=== PATIENT | female | born 1960 | race Caucasian/White ===

== ENCOUNTER 2020-03-25 12:41 | Outpatient (REF) | payer MEDICARE, SELFPAY ==
--- NOTE | 2020-03-25 12:46 | US_ITS ---
EXAMINATION: ULTRASOUND OF THE RADIAL LEFT WRIST CLINICAL INFORMATION: Bursal cyst. Patient reports pain swelling in the area of trauma since April 2020. COMPARISON: None TECHNIQUE: Targeted ultrasound of the left radial aspect of the wrist in the area of patient's reported pain. FINDINGS: No abnormality detected US/US extremity nonvascular yen IMPRESSION: Normal targeted ultrasound of the right wrist. If symptoms persist consider follow-up imaging with x-rays and/or MRI
== END 2020-03-25 12:42 | disposition home or self-care (01) ==
LOC: HO.HMGCX 12:41
PROVIDERS: PCP Nurse Practitioner Family; Visit Provider Nurse Practitioner Family
DX: M71.332 Other bursal cyst, left wrist (principal)
CPT/HCPCS: 76882

== ENCOUNTER 2020-05-05 08:37 | Outpatient (REF) | payer MEDICARE, SELFPAY ==
--- NOTE | 2020-05-05 13:19 | XR_ITS ---
EXAMINATION: XR WRIST, LEFT CLINICAL INFORMATION: Cyst COMPARISON: None TECHNIQUE: PA, lateral, and oblique views of the left wrist. FINDINGS: The bones and soft tissues are normal. No fracture. Alignment is anatomic with normal joint spaces. No erosions or abnormal soft tissue calcifications. XR/XR wrist LT min 3V IMPRESSION: Normal left wrist.
== END 2020-05-05 08:38 | disposition home or self-care (01) ==
LOC: HO.HOSX 08:37
PROVIDERS: Visit Provider Physician Assistant
DX: M71.332 Other bursal cyst, left wrist (principal); M65.4 Radial styloid tenosynovitis [de Quervain]
CPT/HCPCS: 20550; 73110; 99202; J1100

== ENCOUNTER 2020-07-22 14:34 | Outpatient (REF) | payer MEDICARE, SELFPAY ==
--- NOTE | ~2020-07-22 | XR_ITS ---
EXAMINATION: XR FOOT, RIGHT CLINICAL INFORMATION: Pain COMPARISON: 08/13/2018 TECHNIQUE: AP, lateral, and oblique views of the right foot. FINDINGS: No acute fracture or dislocation. Stable hallux valgus.Stable postsurgical changes of the first and fifth metatarsals. Previously seen screws within the first and fifth metatarsals have been removed. Healed fracture deformities of the second and third metatarsal necks. Small dorsal projecting marginal osteophytes along the intertarsal articulations. Small plantar enthesophyte. Soft tissues unremarkable. XR/XR foot RT min 3V IMPRESSION: No acute fracture or dislocation. Postsurgical changes as described.
== END 2020-07-22 14:35 | disposition home or self-care (01) ==
LOC: HO.HMGCX 14:34
PROVIDERS: PCP Nurse Practitioner Family; Visit Provider Nurse Practitioner Family
DX: M79.671 Pain in right foot (principal)
CPT/HCPCS: 73630

== ENCOUNTER → 2020-09-02 09:15 | Outpatient (REF) | payer MEDICARE, SELFPAY ==
--- NOTE | 2020-09-02 09:18 | CA_ITS ---
Transthoracic Echocardiogram Amended Patient (Last, First, Middle): Erika Herron A Gender: Female Date of : 1960 Age: 60 Procedure Date: 09/02/2020 Procedure Type: Transthoracic Echocardiogram Location: OP Height: 160.02 cm Weight: 75.75 kg BSA: 1.79 m2 Heart Rate: bpm BP: 126 / 80 mmHg Building Performance Specialist: JESSICA Mckinney MD: Guillermo Suggs [facility] Symptoms: R01.1 - Cardiac murmur, unspecified Study Quality: Fair ECG Rhythm: Sinus Conclusions: - The left ventricular systolic function is normal. The visually estimated ejection fraction is between 65-70%. - There is mild calcification of the aortic valve. - No obvious valvular pathology seen on this study. Findings Left Ventricle Normal left ventricular cavity size. There is normal left ventricular wall thickness. The left ventricular systolic function is normal. The visually estimated ejection fraction is between 65-70%. There is no evidence of regional wall motion abnormalities. Diastolic function is normal for age. Right Ventricle Normal right ventricular cavity size and systolic function. Atria The left atrium is normal in size. The right atrium is normal in size. Aortic Valve There is a normal trileaflet aortic valve. There is mild calcification of the aortic valve. There is no aortic valve stenosis. There is no aortic valve regurgitation. Mitral Valve The mitral valve appears normal. There is trace mitral valve regurgitation. There is no mitral valve stenosis. Pulmonic Valve The pulmonic valve was not well visualized. Tricuspid Valve Normal tricuspid valve structure. There is trace tricuspid valve regurgitation. The pulmonary artery systolic pressure is normal. Great Vessels The aortic annulus, sinuses of valsalva, and asc aorta are normal in size. Venous The inferior vena cava is normal in size and collapses greater than 50% with inspiration. Pericardium/Pleural There is no evidence of pericardial effusion. Prior Study Comparison No significant change compared to prior study dated: 04/01/2016. Recommendations, Care & Conclusions No obvious valvular pathology seen on this study. Measurements 2D Linear Measurements IVSd: 0.88 0.6-0.9/0.6-1.0 cm LVIDd: 3.97 3.9-5.3/4.2-5.9 cm LVIDd Index: 2.22 2.4-3.2/2.2-3.1 cm/m2 LVIDs: 2.46 2.0-3.6 cm LVPWd: 0.98 0.7-1.1 cm Ao Root: 2.90 2.1-3.5 cm LA Diam: 3.50 2.7-3.8/3.0-4.0 cm LAIDs Index: 1.96 1.5-2.3 cm/m2 LV Mass: 140.90 67-162/88-224 g LV Mass Index: 78.72 43-95/49-115 g/m2 LVOT Diam: 2.00 3.0+(-)1.3 cm 2D Systolic Function EF 4C: 63.50 >55% EF 2C: 63.10 >55% EF BiP: 64.60 >55% Mitral Valve MV Pk E: 1.22 MV PK A: 1.23 MV Decel Time: 239.00 E/A: 1.00 E'Lateral: 7.54 E'Medial: 7.54 E/E' Med: 16.20 E/E' Lat: 16.20 PHT: 70.00 MVA PHT: 3.14 Decel Hernando: 5.11 Aortic Valve AoV Pk Kirk: 1.59 AoV Mn Kirk: 1.13 AoV VTI: 0.40 AoV Pk Grad: 10.00 Aov Mn Grad: 6.00 AUNDREA Cont.VTI: 2.64 LVOT LVOT Pk Kirk: 1.46 LVOT Mn Kirk: 0.97 LVOT VTI: 0.34 LVOT Pk Grad: 9.00 LVOT Mn Grad: 4.00 LVOT Diam: 2.00 LVOT Area: 3.14 Diastolic Function MV Pk E: 1.22 MV Pk A: 1.23 E/A: 1.00 E'Medial: 7.54 E/E' Med: 16.20 E' Laterial: 7.54 E/E' Lat: 16.20 Tricuspid Valve TR Pk Kirk: 1.79 TR Pk Grad: 13.00 RA Press: 3.00 RVSP: 16.00 Great Vessels Aorta Ao Root-2D: 2.90 2.0-3.7 cm Ao Asc: 3.00 2.1-3.4 cm Ao Arch: 2.40 Updated in Other Vendor System with Status of Final Los Calvin MD electronically signed on 09/03/2020 10:07:12 AM with status of Final
== END ==
LOC: HO.CARD 09:15
PROVIDERS: PCP Nurse Practitioner Family; Visit Provider Nurse Practitioner Family
DX: R01.1 Cardiac murmur, unspecified (principal)
CPT/HCPCS: 93306

== ENCOUNTER 2021-11-12 11:01 | Outpatient (REF) | payer MEDICARE, SELFPAY ==
[2021-11-14 05:12] LABS: Lyme Abs Screen <0.90 index
== END 2021-11-12 11:02 | disposition home or self-care (01) ==
LOC: HO.HMGCLDS 11:01
PROVIDERS: PCP Nurse Practitioner Family; Visit Provider Internal Medicine
DX: M25.50 Pain in unspecified joint (principal)
CPT/HCPCS: 36415; 86617; 86618

== ENCOUNTER 2021-11-22 13:26 | Outpatient (REF) | payer MEDICARE, SELFPAY ==
[2021-11-24 10:02] LABS: Lyme Blot 3.27 index
[2021-11-28 11:43] LABS: Lyme Abs Screen POSITIVE
[2021-11-28 11:48] LABS: 18 KD (IgG) Band NON-REACTIVE; 23 KD (IgG) Band NON-REACTIVE; 23 KD (IgM) Band REACTIVE; 28 KD (IgG) Band NON-REACTIVE; 30 KD (IgG) Band NON-REACTIVE; 39 KD (IgM) Band NON-REACTIVE; 39KD (IgG) Band NON-REACTIVE; 41 KD (IgM) Band NON-REACTIVE; 41KD (IgG) Band NON-REACTIVE; 45 KD (IgG) Band NON-REACTIVE; 58 KD (IgG) Band NON-REACTIVE; 66 KD (IgG) Band NON-REACTIVE; 93 KD (IgG) Band NON-REACTIVE; Lyme IgG Blot Interp NEGATIVE (NEGATIVE); Lyme IgM Blot Interp NEGATIVE (NEGATIVE)
== END 2021-11-22 13:27 | disposition home or self-care (01) ==
LOC: HO.HMGCLDS 13:26
PROVIDERS: Visit Provider Nurse Practitioner Family
DX: T14.8XXA Other injury of unspecified body region, initial encounter (principal); X58.XXXA Exposure to other specified factors, initial encounter; Y93.9 Activity, unspecified; Y92.9 Unspecified place or not applicable; Y99.8 Other external cause status
CPT/HCPCS: 36415; 86617; 86618

== ENCOUNTER 2022-08-09 12:31 | Outpatient (REF) | payer MEDICARE, MEDICAID, SELFPAY ==
--- NOTE | ~2022-08-09 | XR_ITS ---
EXAMINATION: XR FOOT, RIGHT CLINICAL INFORMATION: Pain COMPARISON: Previous x-ray July 2009 TECHNIQUE: AP, lateral, and oblique views of the right foot. FINDINGS: The bones are osteopenic. There is hallux valgus deformity at the first MTP joint. Bone alignment is otherwise normal. Postsurgical changes to the first and fifth metatarsal bones. No fracture or dislocation. Ankylosis at the PIP joints of the second and third toes. Mild arthritis at the first MTP joint. Plantar calcaneal spur. XR/XR foot RT min 3V IMPRESSION: Osteopenia. Hallux valgus deformity at the first MTP joint. Postsurgical changes to the first and fifth metatarsal bones.
[2022-08-09 14:10] LABS: MANUAL DIFF FLAG NO
[2022-08-09 14:23] LABS: Basophils Percent Auto 0.4 % (0-2); Eosinophils Absolute Auto 0.1 X10*3/uL (0.0-0.4); Eosinophils Percent Auto 0.9 % (0-4); Hematocrit 46.2 % (37.0-47.0); Hemoglobin 15.2 g/dl (12.0-16.0); Imm Gran Abs Auto 0.02 X10*3/uL (0.00-0.03); Imm Gran Pct Auto 0.2 % (0.0-0.4); Lymphocytes Absolute Auto 2.6 X10*3/uL (1.2-4.9); Lymphocytes Percent Auto 32.1 % (20-40); Mean Corpuscular HGB Conc 32.9 g/dl (31.0-35.0); Mean Corpuscular Volume 94.3 fL (80.0-98.0); Mean Platelet Volume 11.2 fL (9.4-12.3); Monocytes Absolute Auto 0.4 X10*3/uL (0.1-1.2); Monocytes Percent Auto 4.8 % (2-11); Neutrophils Percent Auto 61.6 % (45-73); Platelet Count 194 X10*3/uL (160-400); Red Cell Distribution Width 13.8 % (11.0-16.0); White Blood Count 8.2 X10*3/uL (4.8-10.8)
[2022-08-09 16:10] LABS: Alanine Aminotransferase 28 U/L (0-31); Albumin Level 4.3 g/dL (3.5-5.0); Alkaline Phosphatase 84 U/L (39-117); Anion Gap 13 (12-20); Aspartate Amino Transferase 19 U/L (5-31); Bilirubin Total 0.6 mg/dL (0.0-1.0); Blood Urea Nitrogen 16 mg/dL (9-16); Calcium 9.7 mg/dL (8.4-10.2); Carbon Dioxide 31 mmol/L (22-29); Chloride 106 mmol/L (96-108); Cholesterol 325 mg/dL; Estimated Glomerular Filt Rate > 60; Glucose Fasting 121 mg/dL (60-99); HDL Cholesterol 51 mg/dL; LDL Cholesterol Calculated 213 mg/dl; Potassium 4.6 mmol/L (3.3-5.1); Sodium 145 mmol/L (135-145); Total Protein 7.1 g/dL (6.5-8.0); Triglycerides 309 mg/dL
[2022-08-09 16:24] LABS: TSH reflex Free T4 1.28 uIU/mL (0.32-4.0)
[2022-08-09 17:48] LABS: Appearance Urine Clear; Color Urine Yellow; Glucose Urine UA Negative (Negative); Leukocyte Esterase Urine Negative (Negative); Nitrite Urine Negative (Negative); PH 6.5 (5.0-9.0); Specific Gravity - Urine 1.015 (1.005-1.025); UMIC TRIGGER UACC YES; Urine Blood Trace (Negative); Urine Ketones Negative (Negative); Urine Protein Negative (Neg-Trace)
[2022-08-09 17:56] LABS: Bacteria Urine None Seen (None Seen); Hyaline Casts Urine 0-2 /LPF (0-2); RBC Urine 0-2 /HPF (0-2); Squamous Epithelial Cell Urine 0-2 /HPF (0-2); WBC Urine 0-5 /HPF (0-5)
== END 2022-08-09 12:32 | disposition home or self-care (01) ==
LOC: HO.HMGCX 12:31
PROVIDERS: PCP Nurse Practitioner Family; Visit Provider Nurse Practitioner Family
DX: I10 Essential (primary) hypertension (principal); E78.5 Hyperlipidemia, unspecified; M79.671 Pain in right foot
CPT/HCPCS: 36415; 73630; 80053; 80061; 81001; 84443; 85025

== ENCOUNTER 2023-01-02 14:49 | Outpatient (REF) | payer MEDICARE, MEDICAID, SELFPAY ==
[2023-01-02 17:46] LABS: Alanine Aminotransferase 28 U/L (0-31); Albumin Level 4.1 g/dL (3.5-5.0); Alkaline Phosphatase 87 U/L (39-117); Anion Gap 13 (12-20); Aspartate Amino Transferase 17 U/L (5-31); Bilirubin Total 0.8 mg/dL (0.0-1.0); Blood Urea Nitrogen 10 mg/dL (9-16); Calcium 9.6 mg/dL (8.4-10.2); Carbon Dioxide 30 mmol/L (22-29); Chloride 107 mmol/L (96-108); Cholesterol 159 mg/dL (<200); Estimated Glomerular Filt Rate > 60; Glucose Fasting 92 mg/dL (60-99); HDL Cholesterol 57 mg/dL (>40); Iron 155 mcg/dL (30-160); LDL Cholesterol Calculated 78 mg/dL (<100); Percent Iron Saturation 49 % (15-50); Sodium 146 mmol/L (135-145); Total Iron Binding Capacity 316 mcg/dL (228-428); Total Protein 7.1 g/dL (6.5-8.0); Triglycerides 120 mg/dL (<150); Unsaturated Iron Binding 161 ug/dL
[2023-01-02 18:01] LABS: Ferritin 164 ng/mL (10-250)
== END 2023-01-02 14:50 | disposition home or self-care (01) ==
LOC: HO.HMGCLDS 14:49
PROVIDERS: PCP Nurse Practitioner Family; Visit Provider Nurse Practitioner Family
DX: R73.01 Impaired fasting glucose (principal); E78.5 Hyperlipidemia, unspecified; G25.81 Restless legs syndrome
CPT/HCPCS: 36415; 80053; 80061; 82728; 83540

== ENCOUNTER 2023-01-05 09:38 | Outpatient (AMB) | payer MEDICARE, MEDICAID, SELFPAY ==
[2023-01-05 09:47] VITALS: BP 112/68; PULSE 64; O2SAT 94; BMI 29.9
--- NOTE | 2023-01-05 09:47 | A.OFFPC_ITS ---
Vital Signs 01/05/23 09:47 Height 5 ft 3.5 in Weight 171 lb 8 oz BMI 29.9 BP 112/68 Blood Pressure Location Rt brachial Position Sitting Pulse 64 Pulse Source Pulse Oximeter Pulse Oximetry (%) 94 Oxygen Delivery Method Room Air Intake Visit Reasons: 3 month follow up HTN Allergies gabapentin [GABAPENTIN] Allergy (Unknown, Verified 01/05/23 10:10) VOMITING levofloxacin [From LEVAQUIN] Allergy (Unknown, Verified 01/05/23 10:10) VOMITING/FEVER pregabalin Adverse Reaction (Unknown, Verified 01/05/23 10:10) loss of memory Mirtazapine Adverse Reaction (Unknown, Uncoded 01/05/23 10:10) feels horrible Medication List - Last Reconciled 01/05/23 by VANESA Chaudhary alprazolam 1 mg PO BID PRN calcium carbonate (Calcium 500) 500 mg PO DAILY cholecalciferol (vitamin D3) 25 mcg PO DAILY citalopram 20 mg PO QAM clonazepam 1 mg PO BEDTIME flu vac [id number] 36mos up(PF) mL IM glucosamine sulfate 2KCl (Glucosamine Relief) 1,000 mg PO BID hydrochlorothiazide 25 mg PO DAILY 90 days pramipexole 0.75 mg PO BEDTIME 90 days rosuvastatin 10 mg PO DAILY 30 days zolpidem 10 mg PO BEDTIME PRN 30 days Tobacco use date assessed: 01/05/23 Dental Screening Dental Screen Date: 01/05/23 Did you have a dental visit in the last 12 months?: No Did you have a dental problem in the last 6 months where you did not have access to dental care?: No Was dental information given to patient?: No HPI 3 month follow up HTN HPI Details Dyslipidemia: On rosuvastatin 10mg. Pt's lipids are improving with use of statin. HTN: Blood pressure is stable, managed with hydrochlorothiazide 25mg. Denies chest pain, shortness of breath, headache, dizziness, and blurred vision. [facility] Medical History Anxiety disorder Chronic foot pain Depression Lumbar radiculopathy Nerve root compression Restless leg syndrome Sleep apnea Surgical History H/O synovectomy History of colonoscopy History of microdiscectomy Family History Father No problems noted. Mother CVD (cardiovascular disease) S/P triple vessel bypass Myocardial infarct Social History Housing: House Alcohol intake: never Patient Tobacco Use Status: Former Tobacco user Quit Date: 1984 Tobacco use type: Cigarette e-Cigarette/Vaping Use: Never Used Second Hand Smoke Exposure: No Current occupational status: unemployed Current occupation: right handed Cognitive needs: No Hearing needs: No Vision needs: No Questionnaire Thrive Questionnaire Date Thrive assessed: 09/29/22 GERSON-7 AMB Questionnaire GERSON-7 Date GERSON - 7 assessed: 09/29/22 Source: Developed by Drs. Jackson Dorsey, Cha Crum, Odin Brewster and colleagues, with an educational chris from [employer]. Review of Systems Const Reports as per HPI Physical exam (Primary Care) Vital Signs: Last Vital Signs Pulse 64 01/05/23 09:47 BP 112/68 01/05/23 09:47 Pulse Ox 94 01/05/23 09:47 Oxygen Delivery Method Room Air 01/05/23 09:47 BMI result Body Mass Index 29.9 Tobacco/Smoking Status: Tobacco use Status Tobacco use date assessed 01/05/23 01/05/23 09:55 Patient Tobacco Use Status Former Tobacco user 01/05/23 09:51 Tobacco use type Cigarette 01/05/23 09:51 e-Cigarette/Vaping Use Never Used 01/05/23 09:51 Thrive Assessment: Date of Thrive Assessment Date Thrive assessed 09/29/22 01/05/23 09:51 Const General: cooperative Orientation/consciousness: patient oriented x3 Resp Effort & Inspection: normal respiratory effort Auscultation: clear to auscultation bilaterally Cardio Rate: regular rate Rhythm: regular rhythm Heart sounds: S1 normal heart sound present and S2 normal heart sound present Neuro General: patient oriented x3 Psych Appearance: grossly normal Mental Status: mental status grossly normal Speech and movement: Normal speech and movement present Affect: normal affect Attitude: cooperative Thought process: Normal thought process present Thought content: Normal thought content present Insight: Good insight present (Psych) Judgement: Good judgement present (Psych) Assessment and Plan Assessment & Plan (1) Dyslipidemia: Code(s): E78.5 - Hyperlipidemia, unspecified Plan: Continue statin (2) HTN (hypertension): Code(s): I10 - Essential (primary) hypertension Plan: Continue hctz Plan The patient agreed to the use of a medical front desk coordinator for this encounter. Scribed for VANESA Knight by Karie Fry medical front desk coordinator, on 01/05/2023 at 10:05 EST. Coding Level of Care Code Est Pt Level 3 (26950) Diagnoses Dyslipidemia E78.5 HTN (hypertension) I10
== END 2023-01-05 10:30 | disposition home or self-care (01) ==
PROVIDERS: PCP Nurse Practitioner Family; Visit Provider Nurse Practitioner Family
DX: E78.5 Hyperlipidemia, unspecified (principal); I10 Essential (primary) hypertension
CPT/HCPCS: 99213

== ENCOUNTER 2023-04-04 10:58 | Outpatient (REF) | payer MEDICARE, MEDICAID, SELFPAY ==
--- NOTE | ~2023-04-04 | MM_ITS ---
EXAMINATION: BONE DENSITOMETRY CLINICAL INDICATION: Asymptomatic menopausal state. COMPARISON: This is the patient's baseline examination. TECHNIQUE: Using a [employer] DXA System (software version: 13.1) manufactured by [employer], dual-energy x-ray absorptiometry was performed of the lumbar spine and left hip. The images are of good technical quality. Summary results are attached. FINDINGS: LEFT FEMUR, NECK: BMD 0.525 g/cm2, Z-score -2.6, T-score -3.7, osteoporosis. LEFT FEMUR, TOTAL: BMD 0.657 g/cm2, Z-score -2.0, T-score -2.8, osteoporosis. AP SPINE L1-L4: BMD 1.058 g/cm2, Z-score 0.0, T-score -1.0, normal. IDENTIFIED RISK FACTORS: Menopause, thiazide. HISTORY OF FRACTURE: None listed. MEDICATIONS: Multivitamin. MM/XR DEXA axial skeleton IMPRESSION: 1. DIAGNOSIS: Osteoporosis based on the lowest T-score value of -3.7 in the femoral neck applying World Health Organization criteria. 2. 10-YEAR FRACTURE RISK PREDICTION, FRAX: According to the guidelines, FRAX calculation should only be performed on patients in the osteopenia bone density category. Therefore, FRAX was not performed on this patient. 3. Treatment Recommendations: NOF guidelines recommend consideration for treatment in postmenopausal women and men age 50 and older presenting with the following: -A hip or vertebral (clinical or morphometric) fracture. -T-score less than or equal to -2.5 at the femoral neck or spine after appropriate evaluation to exclude secondary causes. -Low bone mass at the hip or spine and a 10-year fracture probability by FRAX of greater than or equal to 3% for hip fracture or greater than or equal to 20% for major osteoporotic fracture based on the [place] adapted WHO algorithm. 4. Other Recommendations: All treatment decisions require clinical judgment and consideration of individual patient factors, including patient preferences, comorbidities, previous drug use, risk factors not captured in the FRAX model (e.g. frailty, falls, vitamin D deficiency, increased bone turnover, interval significant decline in bone density) and possible under or overestimation of fracture risk by FRAX. Additional medical evaluation for secondary cause of low bone mineral density may be appropriate. FUTURE SCAN RECOMMENDATION: People with diagnosed cases of osteoporosis or at high risk for fracture should have regular bone mineral density tests. For patients eligible for Medicare, routine testing is allowed once every 2 years. The testing frequency can be increased to one year for patients who have rapidly progressing disease, those who are receiving or discontinuing medical therapy to restore bone mass, or have additional risk factors.
== END 2023-04-04 10:59 | disposition home or self-care (01) ==
LOC: HO.MAMMO 10:58
PROVIDERS: PCP Nurse Practitioner Family; Visit Provider Nurse Practitioner Family
DX: Z13.820 Encounter for screening for osteoporosis (principal); Z78.0 Asymptomatic menopausal state
CPT/HCPCS: 77080

== ENCOUNTER 2023-04-12 10:55 | Outpatient (AMB) | payer MEDICARE, MEDICAID, SELFPAY ==
--- NOTE | 2023-04-12 11:34 | A.OFFPC_ITS ---
Vital Signs 04/12/23 11:36 Height 5 ft 3.5 in Weight 174 lb BMI 30.3 BP 114/80 Blood Pressure Location Lt brachial Position Sitting Pulse 61 Pulse Source Pulse Oximeter Pulse Oximetry (%) 98 Oxygen Delivery Method Room Air Intake Visit Reasons: Annual PE Intake Note: Patient here for physical exam. pt would like to talk about bone density scan. last mammo: october 04, 2022 last pap: 03/31/23 [facility] bone density: 04/01/23 Allergies gabapentin [GABAPENTIN] Allergy (Unknown, Verified 04/12/23 11:39) VOMITING levofloxacin [From LEVAQUIN] Allergy (Unknown, Verified 04/12/23 11:39) VOMITING/FEVER pregabalin Adverse Reaction (Unknown, Verified 04/12/23 11:39) loss of memory Mirtazapine Adverse Reaction (Unknown, Uncoded 04/12/23 11:39) feels horrible Medication List - Last Reconciled 04/12/23 by VANESA Chaudhary alprazolam 1 mg PO BID PRN calcium carbonate (Calcium 500) 500 mg PO DAILY cholecalciferol (vitamin D3) 25 mcg PO DAILY citalopram 20 mg PO QAM clonazepam 1 mg PO BEDTIME flu vac [id number] 36mos up(PF) mL IM glucosamine sulfate 2KCl (Glucosamine Relief) 1,000 mg PO BID hydrochlorothiazide 25 mg PO DAILY 90 days pramipexole 0.75 mg PO BEDTIME 90 days rosuvastatin 10 mg PO DAILY 30 days zolpidem 10 mg PO BEDTIME PRN 30 days Tobacco use date assessed: 01/05/23 Dental Screening Dental Screen Date: 04/12/23 Did you have a dental visit in the last 12 months?: No Did you have a dental problem in the last 6 months where you did not have access to dental care?: No Was dental information given to patient?: Patient declined HPI Annual PE HPI Details Pt is here for a PE. Will order labs. Mammo is up to date. Bone density is up to date. Due for colon screen, will refer to GI. [facility] Medical History Anxiety disorder Chronic foot pain Depression Lumbar radiculopathy Nerve root compression Restless leg syndrome Sleep apnea Surgical History History of colonoscopy History of microdiscectomy H/O synovectomy Family History Father No problems noted. Mother CVD (cardiovascular disease) S/P triple vessel bypass Myocardial infarct Social History Housing: House Alcohol intake: never Patient Tobacco Use Status: Former Tobacco user Quit Date: 1984 Tobacco use type: Cigarette e-Cigarette/Vaping Use: Never Used Second Hand Smoke Exposure: No Current occupational status: unemployed Current occupation: right handed Cognitive needs: No Hearing needs: No Vision needs: No Questionnaire PHQ-9 Over the last 2 weeks, how often have you been bothered by any of the following problems? 1. Little interest or pleasure in doing things: more than half the days 2. Feeling down, depressed, or hopeless: more than half the days 3. Trouble falling or staying asleep, or sleeping too much: nearly every day 4. Feeling tired or having little energy: nearly every day 5. Poor appetite or overeating: not at all 6. Feeling bad about yourself - or that you are a failure or have let yourself or your family down: not at all 7. Trouble concentrating on things, such as reading the newspaper or watching television: several days 8. Moving or speaking so slowly that other people could have noticed. Or the opposite - being so fidgety or restless that you have been moving around a lot more than usual: not at all 9. Thoughts that you would be better off or of hurting yourself in some way: not at all Total score: 11 Depression Screening Interpretation: Positive (has a therapist) Depression Screening Follow-up: In treatment Depression Screening Done: Yes 16740 - PHQ-9 Billing: Yes Source: Developed by Drs. Jackson Dorsey, Cha Crum, Odin Brewster and colleagues, with an educational chris from [employer]. Thrive Questionnaire Date Thrive assessed: 09/29/22 AUDIT C Alcohol Use Questionnaire (AUDIT-C) 1. How often do you have a drink containing alcohol?: Never 3. How often do you have six or more drinks on one occasion?: Never Total Score: 0 Score Reviewed/Action Taken: No GERSON-7 AMB Questionnaire GERSON-7 Date GERSON - 7 assessed: 09/29/22 Source: Developed by Drs. Jackson Dorsey, Cha Crum, Odin Brewster and colleagues, with an educational chris from [employer]. Review of Systems Const Denies chills and Denies fever(s) Eyes Denies blurry vision ENT Denies vertigo, Denies dizziness and Denies sore throat Card Denies chest pain at rest, Denies chest pain with activity, Denies diaphoresis, Denies dyspnea and Denies dyspnea on exertion Resp Denies cough, Denies dyspnea, Denies dyspnea on exertion and Denies wheezing GI Denies abdominal pain, Denies melena, Denies hematochezia, Denies constipation, Denies diarrhea and Denies loose stools Denies hematuria Musc Denies numbness and Denies tingling Skin/Breast Denies lesions Neuro Denies vertigo, Denies dizziness, Denies numbness and Denies tingling Psych Denies anxiety, Denies depression, Denies homicidal ideation, Denies suicidal ideation and Denies other (substance abuse) Aller/Immun Denies wheezing Physical exam (Primary Care) Vital Signs: Last Vital Signs Pulse 61 04/12/23 11:36 BP 114/80 04/12/23 11:36 Pulse Ox 98 04/12/23 11:36 Oxygen Delivery Method Room Air 04/12/23 11:36 BMI result Body Mass Index 30.3 Tobacco/Smoking Status: Tobacco use Status Tobacco use date assessed 01/05/23 04/12/23 11:35 Patient Tobacco Use Status Former Tobacco user 04/12/23 11:35 Tobacco use type Cigarette 04/12/23 11:35 e-Cigarette/Vaping Use Never Used 04/12/23 11:35 PHQ-9: PHQ-9 Score PHQ-9: Total score 11 04/12/23 13:05 Depression Screening Interpretation: Positive (has a therapist) Depression Screening Follow-up: In treatment Thrive Assessment: Date of Thrive Assessment Date Thrive assessed 09/29/22 04/12/23 11:35 Const General: cooperative Nutritional Appearance: well nourished and obese Orientation/consciousness: patient oriented x3 HENMT Head: Yes normal to inspection, Yes normocephalic and Yes atraumatic Ears: TM's normal bilaterally Eyes General: appearance normal, both eyes and all related structures Alignment and Position: alignment normal and position normal Neck Neck: Yes normal visual inspection and Yes no lymphadenopathy Thyroid: Thyroid normal Resp Effort & Inspection: normal respiratory effort Auscultation: clear to auscultation bilaterally Cardio Rate: regular rate Rhythm: regular rhythm Heart sounds: S1 normal heart sound present, S2 normal heart sound present and no murmurs GI Palpation (GI): Soft to palpation and nontender Auscultation: normal bowel sounds Skin Rashes: no rashes Neuro General: patient oriented x3, moves all extremities, no focal motor deficits and deep tendon reflexes 2+ bilaterally Romberg Test: Negative Psych Appearance: grossly normal Mental Status: mental status grossly normal Speech and movement: Normal speech and movement present Affect: normal affect Attitude: cooperative Thought process: Normal thought process present Thought content: Normal thought content present Insight: Good insight present (Psych) Judgement: Good judgement present (Psych) Assessment and Plan Assessment & Plan (1) Screening for colon cancer: Code(s): Z12.11 - Encounter for screening for malignant neoplasm of colon (2) Physical exam: Code(s): Z00.00 - Encounter for general adult medical examination without abnormal findings (3) Postmenopausal: Code(s): Z78.0 - Asymptomatic menopausal state Plan The patient agreed to the use of a emergency medical services coordinator for this encounter. Scribed for VANESA Knight by Karie Fry emergency medical services coordinator, on 04/12/2023 at 11:45 EST. Orders: Orders Complete Blood Count Auto Diff Today Z00.00 - Encounter for general adult medical examination without abnormal findings UA CC w/rflx Micro + Cult Today Z00.00 - Encounter for general adult medical examination without abnormal findings Lipid Panel Today Z00.00 - Encounter for general adult medical examination without abnormal findings Comprehensive [place]. Panel Fast Today Z00.00 - Encounter for general adult medical examination without abnormal findings TSH reflex Free T4 Today Z00.00 - Encounter for general adult medical examination without abnormal findings Vitamin D 25-OH Total Today Z78.0 - Asymptomatic menopausal state Referrals Gastroenterology Referral Z12.11 - Encounter for screening for malignant neoplasm of colon Coding Level of Care Code Est Pt Prev Care 40-64y(69333) Diagnoses Screening for colon cancer Z12.11 Physical exam Z00.00 Postmenopausal Z78.0
[2023-04-12 11:36] VITALS: BP 114/80; PULSE 61; O2SAT 98; BMI 30.3
== END 2023-04-12 14:27 | disposition home or self-care (01) ==
PROVIDERS: Visit Provider Nurse Practitioner Family
DX: Z00.00 Encounter for general adult medical examination without abnormal findings (principal); Z12.11 Encounter for screening for malignant neoplasm of colon; Z78.0 Asymptomatic menopausal state
CPT/HCPCS: 99396

== ENCOUNTER 2023-05-19 08:58 | Outpatient (AMB) | payer MEDICARE, MEDICAID, SELFPAY ==
--- NOTE | 2023-05-19 10:03 | MHC.OFFWIV ---
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 Pt states she fell on 04/24/23 at [facility] and has been experiencing left side shoulder pain that has progressively got worse. Patient Tobacco Use Status: Former Tobacco user Quit Date: quit 1984 Allergies gabapentin [GABAPENTIN] Allergy (Unknown, Verified 05/19/23 10:03) VOMITING levofloxacin [From LEVAQUIN] Allergy (Unknown, Verified 05/19/23 10:03) VOMITING/FEVER pregabalin Adverse Reaction (Unknown, Verified 05/19/23 10:03) loss of memory Mirtazapine Adverse Reaction (Unknown, Uncoded 05/19/23 10:03) feels horrible Medication List - Last Reconciled 05/19/23 by Mica Arias MD alprazolam 1 mg PO BID PRN calcium carbonate (Calcium 500) 500 mg PO DAILY calcium carbonate-vitamin D3 600 mg-12.5 mcg (500 unit) (Calcium 600 with Vitamin D3) 1 cap PO BID 90 days cholecalciferol (vitamin D3) 25 mcg PO DAILY citalopram 20 mg PO QAM clonazepam 1 mg PO BEDTIME flu vac [id number] 36mos up(PF) mL IM glucosamine sulfate 2KCl (Glucosamine Relief) 1,000 mg PO BID hydrochlorothiazide 25 mg PO DAILY 90 days pramipexole 0.75 mg PO BEDTIME 90 days rosuvastatin 10 mg PO DAILY 30 days zolpidem 10 mg PO BEDTIME PRN 30 days Do you need a note to return to daycare/school/sports/work: No HPI EP, left shoulder pain ([phone]) HPI Details Patient is 62-year-old female came in today to be evaluated for left shoulder injury Patient says that she was in hospital 24 of April when her daughter had miscarriage While walking in hallway she slipped and fell on her left side. Initially she also had pain in her left knee and hip area along with shoulder. But now she only have pain in her left shoulder and having difficulty lifting the arm. On examination she is tender all over however there is no ecchymosis or skin lesions. Both shoulders looks even. I am ordering x-ray of the shoulder I have sent diclofenac 75 mg to be taken b.i.d. with food for next 10 days And I have also placed a referral for her to be evaluated by Orthopedic. [facility] Medical History Lumbar radiculopathy Anxiety disorder Restless leg syndrome Nerve root compression Chronic foot pain Sleep apnea Depression Surgical History History of colonoscopy History of microdiscectomy H/O synovectomy Family History Father No problems noted. Mother CVD (cardiovascular disease) S/P triple vessel bypass Myocardial infarct Social History Housing: House Alcohol intake: never Patient Tobacco Use Status: Former Tobacco user Quit Date: quit 1984 Tobacco use type: Cigarette e-Cigarette/Vaping Use: Never Used Second Hand Smoke Exposure: No Current occupational status: unemployed Current occupation: right handed Cognitive needs: No Hearing needs: No Vision needs: No Review of Systems Const All systems reviewed & are unremarkable except as noted in HPI and below Physical Exam Vital Signs: Last Vital Signs Temp 98 F 05/19/23 10:04 Pulse 57 05/19/23 10:04 BP 118/68 05/19/23 10:04 Pulse Ox 98 05/19/23 10:04 Oxygen Delivery Method Room Air 05/19/23 10:04 BMI result Body Mass Index 29.9 Const General: no acute distress Orientation/consciousness: patient oriented x3 Eyes General: appearance normal, both eyes and all related structures Resp Effort & Inspection: normal respiratory effort and able to speak in complete sentences Auscultation: clear to auscultation bilaterally Cardio Other: S1 S2 Neuro General: patient oriented x3 Extrem Shoulder/upper arm images: 1. 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 Initially she also had pain in her left knee and hip area along with shoulder. But now she only have pain in her left shoulder and having difficulty lifting the arm. On examination she is tender all over however there is no ecchymosis or skin lesions. Both shoulders looks even. I am ordering x-ray of the shoulder I have sent diclofenac 75 mg to be taken b.i.d. with food for next 10 days And I have also placed a referral for her to be evaluated by Orthopedic. Orders: Orders XR shoulder LT min 2V Today S49.92XA - Unspecified injury of left shoulder and upper arm, initial encounter Referrals Orthopedics Referral S49.92XA - Unspecified injury of left shoulder and upper arm, initial encounter Medications: New diclofenac sodium 75 mg PO BID 20 tabs 0RF pain 10 days Coding Level of Care Code Est Pt Level 4 (76702) Diagnoses Injury of left shoulder, initial encounter S49.92XA Encounter type: initial encounter
[2023-05-19 10:04] VITALS: BP 118/68; PULSE 57; TEMP 36.6; O2SAT 98; BMI 29.9
== END 2023-05-19 10:34 | disposition home or self-care (01) ==
PROVIDERS: PCP Nurse Practitioner Family; Visit Provider Internal Medicine
DX: S49.92XA Unspecified injury of left shoulder and upper arm, initial encounter (principal)
CPT/HCPCS: 99214

== ENCOUNTER 2023-05-23 10:42 | Outpatient (REF) | payer MEDICARE, MEDICAID, SELFPAY | END 2023-05-23 10:43 | disposition home or self-care (01) | LOC: HO.HOSX 10:42 | PROVIDERS: Visit Provider Orthopaedic Surgery | DX: Z13.89 Encounter for screening for other disorder (principal) ==

== ENCOUNTER 2023-05-24 12:56 | Outpatient (AMB) | payer MEDICARE, MEDICAID, SELFPAY ==
[2023-05-24 12:58] VITALS: BMI 29.8
--- NOTE | 2023-05-24 12:58 | MHC.OFFVIS ---
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 The patient states that her symptoms have gotten worse since she fell directly onto her left side. She has not been able to lift her left hand above shoulder height since that time. She denies any numbness or tingling in either upper extremity. She denies any pain or weakness in her left shoulder prior to her fall. She has been doing physical therapy exercises which aggravated her pain. She has also tried Tylenol and anti-inflammatory medicines which gave her minimal relief. Allergies gabapentin [GABAPENTIN] Allergy (Unknown, Verified 05/24/23 13:10) VOMITING levofloxacin [From LEVAQUIN] Allergy (Unknown, Verified 05/24/23 13:10) VOMITING/FEVER pregabalin Adverse Reaction (Unknown, Verified 05/24/23 13:10) loss of memory Mirtazapine Adverse Reaction (Unknown, Uncoded 05/19/23 10:03) feels horrible [facility] Medical History Lumbar radiculopathy Anxiety disorder Restless leg syndrome Nerve root compression Chronic foot pain Sleep apnea Depression Surgical History History of colonoscopy History of microdiscectomy H/O synovectomy Family History Father No problems noted. Mother CVD (cardiovascular disease) S/P triple vessel bypass Myocardial infarct Social History Housing: House Alcohol intake: never Patient Tobacco Use Status: Former Tobacco user Quit Date: quit 1984 Tobacco use type: Cigarette e-Cigarette/Vaping Use: Never Used Second Hand Smoke Exposure: No Current occupational status: unemployed Current occupation: right handed Cognitive needs: No Hearing needs: No Vision needs: No Physical Exam Vital Signs: BMI result Body Mass Index 29.8 Const Other: Well-nourished well-developed very friendly female awake alert and oriented x3 in no acute distress Extrem Other: Bilateral upper extremity examination shows good capillary refill, no skin lesions noted, normal sensation light touch Left shoulder examination shows decreased range of motion when compared to her right shoulder, 4/5 strength with supraspinatus testing, positive impingement signs, tenderness over her acromioclavicular joint, no instability Results Reviewed Results Reviewed: X-rays of the patient's left shoulder show severe acromioclavicular joint narrowing, a type 2 acromion, no acute bony abnormalities Assessment & Plan Assessment & Plan (1) Left shoulder pain: Code(s): M25.512 - Pain in left shoulder Plan Ms. Herron presents with progressively worsening left shoulder pain and weakness most likely due to a full-thickness rotator cuff tear. Thus, I will send the patient for an MRI of her left shoulder for further evaluation of her rotator cuff tendons. If she does have a full-thickness tear I will recommend surgical repair to optimize her future functional level. I will see her back once the MRI is completed to discuss the findings and treatment options. Feel free to call me at any time should questions regarding her orthopedic management arise. I spent 22 minutes in reviewing the patient's records and imaging studies, seeing the patient and documenting in the medical record. Orders: Orders XR shoulder LT min 2V 05/23/23 M25.512 - Pain in left shoulder MR shoulder LT wo con Today M75.122 - Complete rotator cuff tear or rupture of left shoulder, not specified as traumatic XR shoulder LT min 2V Today M25.512 - Pain in left shoulder Medications: New tramadol 50 mg PO Q8H PRN 40 tabs 0RF pain Coding Level of Care Code New Pt Level 2 (86824) Diagnoses Left shoulder pain M25.512
== END 2023-05-24 13:23 | disposition home or self-care (01) ==
PROVIDERS: PCP Nurse Practitioner Family; Visit Provider Orthopaedic Surgery
DX: M25.512 Pain in left shoulder (principal)
CPT/HCPCS: 99202

== ENCOUNTER 2023-05-24 14:38 | Outpatient (REF) | payer MEDICARE, MEDICAID, SELFPAY ==
--- NOTE | ~2023-05-24 | XR_ITS ---
EXAMINATION: XR SHOULDER, LEFT CLINICAL INFORMATION: Pain in left shoulder COMPARISON: None available. TECHNIQUE: AP external rotation, and scapular Y views of the left shoulder. FINDINGS: The bones and soft tissues are normal. No fracture. Glenohumeral and acromioclavicular alignment is anatomic with normal joint space. No abnormal soft tissue calcifications. XR/XR shoulder LT min 2V IMPRESSION: Normal left shoulder.
== END 2023-05-24 14:39 | disposition home or self-care (01) ==
LOC: HO.HOSX 14:38
PROVIDERS: Visit Provider Orthopaedic Surgery
DX: M25.512 Pain in left shoulder (principal)
CPT/HCPCS: 73030; 99202

== ENCOUNTER 2023-05-31 12:48 | Outpatient (AMB) | payer MEDICARE, MEDICAID, SELFPAY ==
[2023-05-31 12:49] VITALS: BMI 29.8
--- NOTE | 2023-05-31 12:49 | A.OFFVIS_ITS ---
Intake Vital Signs 05/31/23 12:49 Height 5 ft 3.5 in Weight 171 lb BMI 29.8 Intake Visit Reasons: OV- MRI review of left shoulder Intake Note: Erika is a 62 year old female who presents today for a MRI review of Left shoulder. The patient reports mild to moderate discomfort in her left shoulder after falling onto her left shoulder on 04/24/2023. She has been doing gentle qifzx-nu-jyoolw exercises on her own. She has taken tramadol which gives her only mild relief. Allergies gabapentin [GABAPENTIN] Allergy (Unknown, Verified 05/31/23 12:50) VOMITING levofloxacin [From LEVAQUIN] Allergy (Unknown, Verified 05/31/23 12:50) VOMITING/FEVER pregabalin Adverse Reaction (Unknown, Verified 05/31/23 12:50) loss of memory Mirtazapine Adverse Reaction (Unknown, Uncoded 05/19/23 10:03) feels horrible Medication List - Last Reconciled 05/31/23 by Facundo Hoffman MD alprazolam 1 mg PO BID PRN calcium carbonate (Calcium 500) 500 mg PO DAILY calcium carbonate-vitamin D3 600 mg-12.5 mcg (500 unit) (Calcium 600 with Vitamin D3) 1 cap PO BID 90 days cholecalciferol (vitamin D3) 25 mcg PO DAILY citalopram 20 mg PO QAM clonazepam 1 mg PO BEDTIME diclofenac sodium 75 mg PO BID 10 days flu vac [id number] 36mos up(PF) mL IM glucosamine sulfate 2KCl (Glucosamine Relief) 1,000 mg PO BID hydrochlorothiazide 25 mg PO DAILY 90 days pramipexole 0.75 mg PO BEDTIME 90 days rosuvastatin 10 mg PO DAILY 30 days zolpidem 10 mg PO BEDTIME PRN 30 days PFSH Medical History Lumbar radiculopathy Anxiety disorder Restless leg syndrome Nerve root compression Chronic foot pain Sleep apnea Depression Surgical History History of colonoscopy History of microdiscectomy H/O synovectomy Family History Father No problems noted. Mother CVD (cardiovascular disease) S/P triple vessel bypass Myocardial infarct Social History Housing: House Alcohol intake: never Patient Tobacco Use Status: Former Tobacco user Quit Date: 1984 Tobacco use type: Cigarette e-Cigarette/Vaping Use: Never Used Second Hand Smoke Exposure: No Current occupational status: unemployed Current occupation: right handed Cognitive needs: No Hearing needs: No Vision needs: No Physical Exam Vital Signs: BMI result Body Mass Index 29.8 Extrem Other: Left shoulder examination shows decreased range of motion when compared to her right shoulder, mild to moderate discomfort wit range of motion Results Reviewed Results Reviewed: MRI of the patient's left shoulder shows a nondisplaced greater tuberosity fracture as well as degenerative fraying of the supraspinatus tendon, no full- thickness rotator cuff tearing Assessment & Plan Assessment & Plan (1) Fracture of greater tuberosity of left humerus: Code(s): S42.252A - Displaced fracture of greater tuberosity of left humerus, initial encounter for closed fracture Plan Ms. Herron presents with left shoulder pain due to a nondisplaced left proximal humerus greater tuberosity fracture. I had a lengthy discussion with the patient regarding the treatment options. Most likely the fracture will heal with continued non operative treatments. The patient will continue with her gentle stretching exercises to prevent stiffness. She does not wish to go to formal physical therapy. I did give her a prescription for Tylenol No. 3 to help with her discomfort. She will contact me prior to her follow-up appointment in 6-8 weeks should any questions or concerns arise. Feel free to call me at any time should questions regarding her orthopedic management arise. I spent 20 minutes in reviewing the patient's records and imaging studies, seeing the patient and documenting in the medical record. Medications: New acetaminophen-codeine 300-30 mg 1 tab PO Q8H PRN 30 tabs 0RF pain Discontinued tramadol Discontinued Reason: Doctor's Order 50 mg PO Q8H PRN 40 tabs 0RF pain Coding Level of Care Code Est Pt Level 2 (63247) Diagnoses Fracture of greater tuberosity of left humerus S42.252A
== END 2023-05-31 13:21 | disposition home or self-care (01) ==
PROVIDERS: PCP Nurse Practitioner Family; Visit Provider Orthopaedic Surgery
DX: S42.252A Displaced fracture of greater tuberosity of left humerus, initial encounter for closed fracture (principal); W19.XXXA Unspecified fall, initial encounter
CPT/HCPCS: 99213

== ENCOUNTER → 2023-05-31 12:48 | Outpatient (BNVA) | payer MEDICARE, MEDICAID, SELFPAY | PROVIDERS: PCP Nurse Practitioner Family; Visit Provider Orthopaedic Surgery | DX: S42.252A Displaced fracture of greater tuberosity of left humerus, initial encounter for closed fracture (principal) | CPT/HCPCS: 99212 ==

== ENCOUNTER 2023-08-03 14:22 | Outpatient (AMB) | payer MEDICARE, MEDICAID, SELFPAY ==
[2023-08-03 14:24] VITALS: BMI 30.3
--- NOTE | 2023-08-03 14:24 | MHC.OFFVIS ---
Intake Vital Signs 08/03/23 14:24 Height 5 ft 3 in Weight 171 lb BMI 30.3 Intake Visit Reasons: OV- left shoulder PAIN Intake Note: Ms. Herron presents for follow-up of her left shoulder pain. She suffered a nondisplaced fracture of her greater tuberosity when she fell on 04/24/2023. She has been doing gentle gokuv-mh-ounbuy exercises. She has tried tramadol which gives her only mild relief. The patient states that she has difficulty sleeping on her left shoulder because of her discomfort. She does not wish to get an x-ray today because she is symptomatically improving. Allergies gabapentin [GABAPENTIN] Allergy (Unknown, Verified 08/03/23 14:30) VOMITING levofloxacin [From LEVAQUIN] Allergy (Unknown, Verified 08/03/23 14:30) VOMITING/FEVER pregabalin Adverse Reaction (Unknown, Verified 08/03/23 14:30) loss of memory Mirtazapine Adverse Reaction (Unknown, Uncoded 05/19/23 10:03) feels horrible Medication List - Last Reconciled 08/03/23 by Facundo Hoffman MD acetaminophen-codeine 300-30 mg 1 tab PO Q12H PRN alendronate 70 mg PO QWEEK alprazolam 1 mg PO BID PRN calcium carbonate (Calcium 500) 500 mg PO DAILY calcium carbonate-vitamin D3 600 mg-12.5 mcg (500 unit) (Calcium 600 with Vitamin D3) 1 cap PO BID 90 days cholecalciferol (vitamin D3) 25 mcg PO DAILY citalopram 20 mg PO QAM clonazepam 1 mg PO BEDTIME diclofenac sodium 75 mg PO BID 10 days flu vac [id number] 36mos up(PF) mL IM glucosamine sulfate 2KCl (Glucosamine Relief) 1,000 mg PO BID hydrochlorothiazide 25 mg PO DAILY 90 days hydrocodone-acetaminophen 5-300 mg 1 tab PO Q12H PRN ivermectin 15 mg (5 x 3 mg) PO Q2W 2 doses ofloxacin 0.3% (Ocuflox) put 1-2 drps into affected eye(s) every 2-4 h x 2 days, then 1-2 drps 4 times/day days 3-7 ophthalmic (eye) pramipexole 0.75 mg PO BEDTIME 90 days rosuvastatin 10 mg PO DAILY 30 days zolpidem 10 mg PO BEDTIME PRN 30 days [facility] Medical History Lumbar radiculopathy Anxiety disorder Restless leg syndrome Nerve root compression Chronic foot pain Sleep apnea Depression Surgical History History of colonoscopy History of microdiscectomy H/O synovectomy Family History Father No problems noted. Mother CVD (cardiovascular disease) S/P triple vessel bypass Myocardial infarct Social History Housing: House Alcohol intake: never Patient Tobacco Use Status: Former Tobacco user Quit Date: 1984 Tobacco use type: Cigarette e-Cigarette/Vaping Use: Never Used Second Hand Smoke Exposure: No Current occupational status: unemployed Current occupation: right handed Cognitive needs: No Hearing needs: No Vision needs: No Physical Exam Vital Signs: BMI result Body Mass Index 30.3 Const Other: Well-nourished well-developed very friendly female awake alert and oriented x3 in no acute distress Extrem Other: Bilateral upper extremity examination shows good capillary refill, no skin lesions noted, normal sensation light touch Left shoulder examination shows minimal tenderness to palpation along her proximal humerus, almost full passive range of motion when compared to her right shoulder, mild discomfort with resisted forward flexion, minimal discomfort with resisted internal and external rotation Assessment & Plan Assessment & Plan (1) Fracture of greater tuberosity of left humerus: Code(s): S42.252A - Displaced fracture of greater tuberosity of left humerus, initial encounter for closed fracture Plan Ms. Herron is doing well after suffering a left proximal humerus greater tuberosity fracture on 04/24/2023. At this point she continues to clinically heal. As per her request we will hold off on an x-ray today. The do's and don'ts of lifting were discussed at length with the patient. She will contact me prior to her follow-up appointment in 6 weeks should her symptoms worsen in any way. Feel free to call me at any time should questions regarding her orthopedic management arise. I spent 19 minutes in reviewing the patient's records and imaging studies, seeing the patient and documenting in the medical record. Medications: New hydrocodone-acetaminophen 5-300 mg Partial Fill upon patient request. 1 tab PO Q12H PRN 30 tabs 0RF pain Coding Level of Care Code Est Pt Level 2 (73862) Diagnoses Fracture of greater tuberosity of left humerus S42.252A
== END 2023-08-03 14:47 | disposition home or self-care (01) ==
PROVIDERS: PCP Nurse Practitioner Family; Visit Provider Orthopaedic Surgery
DX: S42.252D Displaced fracture of greater tuberosity of left humerus, subsequent encounter for fracture with routine healing (principal)
CPT/HCPCS: 99213

== ENCOUNTER → 2023-08-03 14:22 | Outpatient (BNVA) | payer MEDICARE, MEDICAID, SELFPAY | PROVIDERS: PCP Nurse Practitioner Family; Visit Provider Orthopaedic Surgery | DX: S42.252D Displaced fracture of greater tuberosity of left humerus, subsequent encounter for fracture with routine healing (principal) | CPT/HCPCS: 99212 ==

== ENCOUNTER 2023-08-22 10:24 | Day surgery (SDC) | payer MEDICARE, MEDICAID, SELFPAY ==
[2023-08-18 13:44] VITALS: BMI 31.5
--- NOTE | 2023-08-21 14:13 | HO.ANESPROP2 ---
HPI - Anesthesia Eval Consult details Narrative: 63yo F for Colonoscopy PMFSH Active Problems Active Problems: All Active Problems Fracture of greater tuberosity of left humerus (Acute) Left shoulder pain (Acute) Injury of shoulder, left (Acute) Osteoporosis (Acute) Physical exam (Acute) Screening for colon cancer (Acute) Postmenopausal (Acute) Elevated fasting blood sugar (Acute) Dyslipidemia (Acute) Tick bite (Acute) Arthralgia (Acute) Right foot pain (Acute) Systolic murmur (Acute) HTN (hypertension) (Acute) De Quervain's tenosynovitis, left (Acute) Other bursal cyst, left wrist (Acute) Restless leg syndrome (Acute) Past Medical History Medical History (Updated 08/22/23 @ 10:52 by Noa Benitez RN) Heart murmur Hyperlipidemia Hematuria Elevated cholesterol Sacroiliitis Right hip pain Lower extremity edema Lumbar radiculopathy Anxiety disorder Restless leg syndrome Nerve root compression Chronic foot pain Sleep apnea Depression Family History Family History Father No problems noted. Mother CVD (cardiovascular disease) S/P triple vessel bypass Myocardial infarct Surgical History Surgical History (Updated 08/18/23 @ 13:32 by Shireen Johnson RN) History of excision of pilonidal cyst Hx of foot surgery Hx of appendectomy Hx of cholecystectomy History of colonoscopy History of microdiscectomy H/O synovectomy Social History Social History Housing: House Alcohol intake: never Patient Tobacco Use Status: Former Tobacco user Quit Date: 1984 Tobacco use type: Cigarette e-Cigarette/Vaping Use: Never Used Second Hand Smoke Exposure: No Use of substances other than those prescribed or required for medical reasons: Yes Are you DNR?: No Advance Directives: No Advance Directives Information Provided: Yes Current occupational status: unemployed Current occupation: right handed Cognitive needs: No Hearing needs: No Vision needs: No Meds Allergies Allergy/AdvReac Type Severity Reaction Status Date / Time gabapentin [GABAPENTIN] Allergy Unknown VOMITING Verified 08/03/23 14:30 levofloxacin [From LEVAQUIN] Allergy Unknown VOMITING/FE Verified 08/03/23 14:30 MALI pregabalin AdvReac Unknown loss of Verified 08/03/23 14:30 memory Mirtazapine AdvReac Unknown feels Uncoded 05/19/23 10:03 horrible Home Medications ?Medication ?Instructions ?Recorded ?Confirmed ?Last Taken ?Type alprazolam 1 mg tablet 1 mg PO BID PRN anxiety 04/22/20 08/18/23 Unknown History citalopram 20 mg tablet 30 mg PO QAM 04/22/20 08/18/23 Unknown History clonazepam 1 mg tablet 2 mg PO BEDTIME RX from psych 10/03/22 08/18/23 Unknown History provider alendronate 70 mg tablet 70 mg PO QWEEK 08/03/23 08/18/23 Unknown History calcium carbonate 600 mg-vitamin 1 cap PO DAILY 08/18/23 08/18/23 Unknown History D3 12.5 mcg (500 unit) capsule (Calcium 600 with Vitamin D3) cholecalciferol (vitamin D3) 125 125 mcg PO QWEEK 08/18/23 08/18/23 Unknown History mcg (5,000 unit) tablet (Vitamin D3) multivitamin 1 tab PO DAILY 08/18/23 08/18/23 Unknown History Exam Height,Weight and Vital Signs: Height 5 ft 3 in Weight 80.739 kg Assessment and Plan Assessment Anesthesia Assessment: Chart Reviewed
[2023-08-22 10:52] VITALS: BMI 32.5
[2023-08-22 11:08] VITALS: BP 144/51; PULSE 59; RESP 16; TEMP 36.5; O2SAT 98
[2023-08-22] MEDS: Lactated Ringers 1,000 ML 100 ML IVCONT (11:15)
--- NOTE | 2023-08-22 11:39 | HO.ANESPROP2 ---
[facility] Active Problems Active Problems: All Active Problems Fracture of greater tuberosity of left humerus (Acute) Left shoulder pain (Acute) Injury of shoulder, left (Acute) Osteoporosis (Acute) Physical exam (Acute) Screening for colon cancer (Acute) Postmenopausal (Acute) Elevated fasting blood sugar (Acute) Dyslipidemia (Acute) Tick bite (Acute) Arthralgia (Acute) Right foot pain (Acute) Systolic murmur (Acute) HTN (hypertension) (Acute) De Quervain's tenosynovitis, left (Acute) Other bursal cyst, left wrist (Acute) Restless leg syndrome (Acute) Past Medical History Medical History (Updated 08/22/23 @ 10:52 by Noa Benitez RN) Heart murmur Hyperlipidemia Hematuria Elevated cholesterol Sacroiliitis Right hip pain Lower extremity edema Lumbar radiculopathy Anxiety disorder Restless leg syndrome Nerve root compression Chronic foot pain Sleep apnea Depression Family History Family History Father No problems noted. Mother CVD (cardiovascular disease) S/P triple vessel bypass Myocardial infarct Family history of problems with anesthesia: No Surgical History Surgical History (Updated 08/18/23 @ 13:32 by Shireen Johnson RN) History of excision of pilonidal cyst Hx of foot surgery Hx of appendectomy Hx of cholecystectomy History of colonoscopy History of microdiscectomy H/O synovectomy History of Problems with Anesthesia: No Social History Social History Housing: House Alcohol intake: never Patient Tobacco Use Status: Former Tobacco user Quit Date: 1984 Tobacco use type: Cigarette e-Cigarette/Vaping Use: Never Used Second Hand Smoke Exposure: No Use of substances other than those prescribed or required for medical reasons: Yes Are you DNR?: No Advance Directives: No Advance Directives Information Provided: Yes Current occupational status: unemployed Current occupation: right handed Cognitive needs: No Hearing needs: No Vision needs: No Meds Allergies Allergy/AdvReac Type Severity Reaction Status Date / Time gabapentin [GABAPENTIN] Allergy Unknown VOMITING Verified 08/03/23 14:30 levofloxacin [From LEVAQUIN] Allergy Unknown VOMITING/FE Verified 08/03/23 14:30 MALI pregabalin AdvReac Unknown loss of Verified 08/03/23 14:30 memory Mirtazapine AdvReac Unknown feels Uncoded 05/19/23 10:03 horrible Active Medications: Current Medications Lactated Ringer's (Lr) 1,000 mls @ 100 mls/hr IVCONT .Q10H GABRIELA Last Admin: 08/22/23 11:15 Dose: 100 mls/hr Ondansetron HCl (Ondansetron Hcl 4 Mg/2 Ml Vial) 4 mg IVPUSH ONCE PRN PRN Reason: Nausea and Vomiting Stop: 08/22/23 14:08 Home Medications ?Medication ?Instructions ?Recorded ?Confirmed ?Last Taken ?Type alprazolam 1 mg tablet 1 mg PO BID PRN anxiety 04/22/20 08/18/23 Unknown History citalopram 20 mg tablet 30 mg PO QAM 04/22/20 08/18/23 Unknown History clonazepam 1 mg tablet 2 mg PO BEDTIME RX from psych 10/03/22 08/18/23 Unknown History provider alendronate 70 mg tablet 70 mg PO QWEEK 08/03/23 08/18/23 Unknown History calcium carbonate 600 mg-vitamin 1 cap PO DAILY 08/18/23 08/18/23 Unknown History D3 12.5 mcg (500 unit) capsule (Calcium 600 with Vitamin D3) cholecalciferol (vitamin D3) 125 125 mcg PO QWEEK 08/18/23 08/18/23 Unknown History mcg (5,000 unit) tablet (Vitamin D3) multivitamin 1 tab PO DAILY 08/18/23 08/18/23 Unknown History Exam Height,Weight and Vital Signs: Height 5 ft 3 in Weight 83.121 kg Last Vital Signs Temp 97.7 F 08/22/23 11:08 Pulse 59 08/22/23 11:08 Resp 16 08/22/23 11:08 BP 144/51 H 08/22/23 11:08 Pulse Ox 98 08/22/23 11:08 O2 Del Method Room Air 08/22/23 11:08 Airway Mallampati Class: II TM Dist: >3cm Neck ROM: Full Loose/Missing/Broken Teeth: No Heart: rrr Lungs: clear Assessment and Plan Final Anesthetic Review Family History of Problems with Anesthesia: No History of Problems with Anesthesia: No ASA Class: II Final Preanesthetic Review: No Changes in Pt Med Stat, Meds/Allgs Chart Reviewed, Consent Obtained/Reviewed and Anes Risks/Benef Reviewed Patient Risk: Intermediate Procedure Risk: Low Anesthetic Plan Anesthetic Plan: MAC: Disposition: Inp. Admit - IMC
--- NOTE | 2023-08-22 11:48 | P.HPSUR_ITS ---
Pre-Procedural Eval Section A - 24 Hr Update-Section A only Date of Service: 08/22/23 Section B - Complete if H&P > 30 days Chief Complaint: Encounter for screening for malignant neoplasm of Details of Present Illness: see H&P no changes Relevant Family History (Specify if Yes): No Relevant Social History: None Present Medications: see Short Stay Collaborative assessment Medical History: No relevant PMH History of Previous Operations: No relevant previous surgery Allergies: Allergies Allergy/AdvReac Type Severity Reaction Status Date / Time gabapentin [GABAPENTIN] Allergy Unknown VOMITING Verified 08/03/23 14:30 levofloxacin [From LEVAQUIN] Allergy Unknown VOMITING/FE Verified 08/03/23 14:30 MALI pregabalin AdvReac Unknown loss of Verified 08/03/23 14:30 memory Mirtazapine AdvReac Unknown feels Uncoded 05/19/23 10:03 horrible Review of Systems Sugical H&P ROS: Negative: Constitution, Cardiovascular, Respiratory, Neurological, Psychiatric, Hem-Onc, Allergic/Immunologic, Gastrointestinal, Genitourinary, Musculoskeletal, Integumentary, Endocrine and Eyes/Ears/Nose/Throat Exam Surgical H&P Exam: Normal: HEENT, Normal: Heart, Normal: Lungs, Normal: Ext remities, Normal: Abdomen, Normal: Skin and Normal: Neurological Plan Diagnosis/Plan: Unchanged I have reviewed the history and physical and performed a pertinent physical examination on my patient. No changes have occurred unless specified. Time Spent With Patient Time: Total time managing care of this patient today ____ minutes.
[2023-08-22 12:39] VITALS: BP 118/51; PULSE 53; RESP 18; TEMP 37.2; O2SAT 96
[2023-08-22 12:54] VITALS: BP 145/69; PULSE 52; RESP 18; TEMP 36.9; O2SAT 100
--- NOTE | 2023-08-24 11:37 | OP_ITS ---
DATE OF SERVICE: 08/22/2023 SURGEON: Jean Mcneill MD INDICATIONS: Colon cancer screening. PREOPERATIVE DIAGNOSIS: POSTOPERATIVE DIAGNOSIS: PROCEDURE PERFORMED: Colonoscopy to the terminal ileum with biopsy and snare polypectomy. ESTIMATED BLOOD LOSS: COMPLICATIONS: ANESTHESIA: Monitored anesthesia care. ASSISTANTS: SPECIMENS: DESCRIPTION OF PROCEDURE: A history and physical was performed. The risks and benefits of the procedure were explained to the patient. Informed consent was obtained. The patient was placed in the left lateral decubitus position. A digital rectal exam was performed and was found to be normal. The Olympus pediatric video colonoscope was introduced into the rectum and advanced to the cecum. The cecum was identified by transillumination, palpation, and identification of ileocecal valve. The abdominal wall pressure was used to assist in advancement of the scope. Examination was performed. The scope was removed. She tolerated the procedure well and was returned to the recovery area in stable condition. FINDINGS: The terminal ileum was examined and appeared normal. The visualized colonic mucosa was normal. There were 2 polyps located at 70 cm measuring less than 10 mm, which were removed with a biopsy forceps and a snare. A polyp at 60 cm was also snared and a polyp at 50 cm was removed with a biopsy forceps. There was mild sigmoid diverticulosis. No other polyps were identified. IMPRESSION: Colon polyps. RECOMMENDATION: Follow up the biopsy results. MD NORRIS Arias/JONAS / [id number]
== END 2023-08-22 13:25 | disposition home or self-care (01) ==
PROVIDERS: PCP Nurse Practitioner Family; Visit Provider Internal Medicine Gastroenterology
PROC: 0DJD8ZZ Inspection of Lower Intestinal Tract, Via Natural or Artificial Opening Endoscopic (ICD-10-PCS; CPT 45378; principal; 2023-08-22 12:30)
DX: Z12.11 Encounter for screening for malignant neoplasm of colon (principal); Z86.010 Personal history of colon polyps; D12.4 Benign neoplasm of descending colon; D12.5 Benign neoplasm of sigmoid colon; K57.30 Diverticulosis of large intestine without perforation or abscess without bleeding; E78.00 Pure hypercholesterolemia, unspecified; G25.81 Restless legs syndrome; G89.4 Chronic pain syndrome; M79.671 Pain in right foot; R60.9 Edema, unspecified; M81.0 Age-related osteoporosis without current pathological fracture; R31.9 Hematuria, unspecified; Z79.899 Other long term (current) drug therapy; Z88.1 Allergy status to other antibiotic agents; Z88.8 Allergy status to other drugs, medicaments and biological substances; Z90.49 Acquired absence of other specified parts of digestive tract; Z98.890 Other specified postprocedural states
CPT/HCPCS: 45385; 45380; 88305; J2704

== ENCOUNTER 2023-09-14 14:35 | Outpatient (AMB) | payer MEDICARE, MEDICAID, SELFPAY ==
[2023-09-14 14:37] VITALS: BMI 32.4
--- NOTE | 2023-09-14 14:37 | MHC.OFFVIS ---
Vital Signs 09/14/23 14:37 Height 5 ft 3 in Weight 183 lb BMI 32.4 Intake Visit Reasons: Left arm swelling Intake Note: Erika is a 63 year old female who presents with complaints of swelling along the lateral aspect of her upper arm as well as intermittent pain in her upper arm. The patient reports minimal discomfort in her left shoulder. The patient states that the pain does radiate down her arm and is sensitive to touch. She has taken Tylenol with codeine which gives her mild relief. She has not taken an anti-inflammatory medicines. She continues with her home stretching program to prevent stiffness. The patient states that she noticed the pain and swelling after undergoing a colonoscopy. Allergies gabapentin [GABAPENTIN] Allergy (Unknown, Verified 09/14/23 14:42) VOMITING levofloxacin [From LEVAQUIN] Allergy (Unknown, Verified 09/14/23 14:42) VOMITING/FEVER pregabalin Adverse Reaction (Unknown, Verified 09/14/23 14:42) loss of memory Mirtazapine Adverse Reaction (Unknown, Uncoded 05/19/23 10:03) feels horrible Medication List - Last Reconciled 09/15/23 by Facundo Hoffman MD acetaminophen-codeine 300-30 mg 1 tab PO Q24H PRN 2 weeks alendronate 70 mg PO QWEEK alprazolam 1 mg PO BID PRN calcium carbonate-vitamin D3 600 mg-12.5 mcg (500 unit) (Calcium 600 with Vitamin D3) 1 cap PO DAILY cholecalciferol (vitamin D3) (Vitamin D3) 125 mcg PO QWEEK citalopram 30 mg PO QAM clonazepam 2 mg PO BEDTIME hydrochlorothiazide 25 mg PO DAILY 90 days hydrocodone-acetaminophen 5-325 mg 1 tab PO BID PRN multivitamin 1 tab PO DAILY ofloxacin 0.3% (Ocuflox) put 1-2 drps into affected eye(s) every 2-4 h x 2 days, then 1-2 drps 4 times/day days 3-7 ophthalmic (eye) pramipexole 0.75 mg PO BEDTIME 90 days rosuvastatin 10 mg PO DAILY 30 days zolpidem 10 mg PO BEDTIME PRN 30 days [facility] Medical History (Updated 08/22/23 @ 10:52 by Noa Benitez RN) Heart murmur Hyperlipidemia Hematuria Elevated cholesterol Sacroiliitis Right hip pain Lower extremity edema Lumbar radiculopathy Anxiety disorder Restless leg syndrome Nerve root compression Chronic foot pain Sleep apnea Depression Surgical History (Updated 08/18/23 @ 13:32 by Shireen Johnson RN) History of excision of pilonidal cyst Hx of foot surgery Hx of appendectomy Hx of cholecystectomy History of colonoscopy History of microdiscectomy H/O synovectomy Family History Father No problems noted. Mother CVD (cardiovascular disease) S/P triple vessel bypass Myocardial infarct Social History Housing: House Alcohol intake: never Patient Tobacco Use Status: Former Tobacco user Quit Date: 1984 Tobacco use type: Cigarette e-Cigarette/Vaping Use: Never Used Second Hand Smoke Exposure: No Current occupational status: unemployed Current occupation: right handed Cognitive needs: No Hearing needs: No Vision needs: No Physical Exam Vital Signs: BMI result Body Mass Index 32.4 Const Other: Well-nourished well-developed very friendly female awake alert and oriented x3 in no acute distress Extrem Other: Bilateral upper extremity examination shows good capillary refill, no skin lesions noted, normal sensation light touch Left shoulder examination shows diffuse swelling along the lateral aspect of her upper arm, no overlying skin lesions, almost full range of motion when compared to her right shoulder, mild discomfort with range of motion, tenderness along the lateral aspect of her upper arm Results Reviewed Results Reviewed: X-rays of the patient's left shoulder show acromioclavicular joint narrowing, no evidence of her previous greater tuberosity fracture, no acute bony abnormalities Assessment & Plan Assessment & Plan (1) Left shoulder pain: Code(s): M25.512 - Pain in left shoulder Category: Medical (2) Swelling of left upper extremity: Code(s): M79.89 - Other specified soft tissue disorders Plan: Ms. Herron presents with swelling along the lateral aspect of her left arm most likely due to soft tissue contusion. I had a lengthy discussion with the patient regarding the treatment options. We did discuss the risks and benefits of a left shoulder cortisone injection. The patient's wishes to hold off on the injection because she states that her shoulder itself does not cause her much discomfort. She is encouraged to take an anti-inflammatory medicine if she can tolerated. She will continue with her home stretching program to prevent stiffness of her shoulder. She did inquire about pain medicines stronger than the Tylenol with codeine. I discussed with the patient the fact that at this point I do not feel comfortable keeping her on any type of narcotic pain medicine. She will follow up with me on an as-needed basis should any further questions or concerns arise. Plan I spent 20 minutes in reviewing the patient's records and imaging studies, seeing the patient and documenting in the medical record. Orders: Orders XR shoulder LT min 2V 09/14/23 M25.512 - Pain in left shoulder Coding Level of Care Code Est Pt Level 3 (82671) Diagnoses Left shoulder pain M25.512 Swelling of left upper extremity M79.89
== END 2023-09-14 15:08 | disposition home or self-care (01) ==
PROVIDERS: PCP Nurse Practitioner Family; Visit Provider Orthopaedic Surgery
DX: M25.512 Pain in left shoulder (principal); M79.89 Other specified soft tissue disorders
CPT/HCPCS: 99213

== ENCOUNTER 2023-09-14 14:35 | Outpatient (REF) | payer MEDICARE, MEDICAID, SELFPAY ==
--- NOTE | ~2023-09-14 | XR_ITS ---
EXAMINATION: XR SHOULDER, LEFT CLINICAL INFORMATION: Pain in left shoulder. COMPARISON: 05/24/2023. TECHNIQUE: Two views of the left shoulder. FINDINGS: Mild osteoarthritic changes in the acromioclavicular joint. Glenohumeral alignment is preserved. XR/XR shoulder LT min 2V IMPRESSION: Mild osteoarthritic changes in the acromioclavicular joint.
== END 2023-09-14 14:36 | disposition home or self-care (01) ==
LOC: HO.HOSX 14:35
PROVIDERS: PCP Nurse Practitioner Family; Visit Provider Orthopaedic Surgery
DX: M25.512 Pain in left shoulder (principal); R60.0 Localized edema
CPT/HCPCS: 73030; 99212; J1010

== ENCOUNTER 2023-10-10 09:52 | Outpatient (AMB) | payer MEDICARE, MEDICAID, SELFPAY ==
[2023-10-10 10:40] VITALS: BP 134/70; PULSE 60; O2SAT 98; BMI 32.8
--- NOTE | 2023-10-10 10:40 | MHC.PC.OV ---
Vital Signs 10/10/23 10:40 Height 5 ft 3 in Weight 185 lb BMI 32.8 BP 134/70 Blood Pressure Location Rt brachial Position Sitting Pulse 60 Pulse Source Pulse Oximeter Pulse Oximetry (%) 98 Intake Visit Reasons: 6 month follow up Intake Note: pt is here for 6 month follow up Plumbing Designer Required: No Allergies gabapentin [GABAPENTIN] Allergy (Unknown, Verified 10/10/23 11:02) VOMITING levofloxacin [From LEVAQUIN] Allergy (Unknown, Verified 10/10/23 11:02) VOMITING/FEVER pregabalin Adverse Reaction (Unknown, Verified 10/10/23 11:02) loss of memory Mirtazapine Adverse Reaction (Unknown, Uncoded 10/10/23 11:02) feels horrible Medication List - Last Reconciled 10/10/23 by VANESA Chaudhary alprazolam 1 mg PO BID PRN calcium carbonate-vitamin D3 600 mg-12.5 mcg (500 unit) (Calcium 600 with Vitamin D3) 1 cap PO DAILY cholecalciferol (vitamin D3) (Vitamin D3) 125 mcg PO QWEEK citalopram 30 mg PO QAM clonazepam 2 mg PO BEDTIME hydrochlorothiazide 25 mg PO DAILY 90 days pramipexole 0.75 mg PO BEDTIME 90 days rosuvastatin 10 mg PO DAILY 30 days zolpidem 10 mg PO BEDTIME PRN 30 days Tobacco use date assessed: 10/10/23 Dental Screening Dental Screen Date: 10/10/23 Did you have a dental visit in the last 12 months?: Yes Did you have a dental problem in the last 6 months where you did not have access to dental care?: No Was dental information given to patient?: Patient has dentist HPI 6 month follow up HPI Details Pt has a hx of osteoporosis. She is seeing endo for this. Pt will be starting alendronate 70mg once a week. Dyslipidemia: On rosuvastatin 10mg. Will order labs. Denies chest pain, shortness of breath, and dizziness. [facility] Medical History Heart murmur Hyperlipidemia Hematuria Elevated cholesterol Sacroiliitis Right hip pain Lower extremity edema Lumbar radiculopathy Anxiety disorder Restless leg syndrome Nerve root compression Chronic foot pain Sleep apnea Depression Surgical History History of excision of pilonidal cyst Hx of foot surgery Hx of appendectomy Hx of cholecystectomy History of colonoscopy History of microdiscectomy H/O synovectomy Family History Father No problems noted. Mother CVD (cardiovascular disease) S/P triple vessel bypass Myocardial infarct Social History Housing: House Alcohol intake: never Patient Tobacco Use Status: Former Tobacco user Quit Date: 1984 Tobacco use type: Cigarette e-Cigarette/Vaping Use: Never Used Second Hand Smoke Exposure: No Current occupational status: unemployed Current occupation: right handed Cognitive needs: No Hearing needs: No Vision needs: No Questionnaire Thrive Questionnaire Date Thrive assessed: 09/29/22 GERSON-7 AMB Questionnaire GERSON-7 Date GERSON - 7 assessed: 09/29/22 Source: Developed by Drs. Jackson Dorsey, Cha Crum, Odin Brewster and colleagues, with an educational chris from [employer]. Review of Systems Const Reports as per HPI Physical exam (Primary Care) Vital Signs: Last Vital Signs Pulse 60 10/10/23 10:40 BP 134/70 10/10/23 10:40 Pulse Ox 98 10/10/23 10:40 BMI result Body Mass Index 32.8 Tobacco/Smoking Status: Tobacco use Status Tobacco use date assessed 10/10/23 10/10/23 10:41 Patient Tobacco Use Status Former Tobacco user 10/10/23 10:41 Tobacco use type Cigarette 10/10/23 10:41 e-Cigarette/Vaping Use Never Used 10/10/23 10:41 Thrive Assessment: Date of Thrive Assessment Date Thrive assessed 09/29/22 10/10/23 10:41 Const General: cooperative Nutritional Appearance: obese Orientation/consciousness: patient oriented x3 Resp Effort & Inspection: normal respiratory effort Auscultation: clear to auscultation bilaterally Cardio Rate: regular rate Rhythm: regular rhythm Heart sounds: S1 normal heart sound present and S2 normal heart sound present Neuro General: patient oriented x3 Psych Appearance: grossly normal Mental Status: mental status grossly normal Speech and movement: Normal speech and movement present Affect: normal affect Attitude: cooperative Thought process: Normal thought process present Thought content: Normal thought content present Insight: Good insight present (Psych) Judgement: Good judgement present (Psych) Assessment and Plan Assessment & Plan (1) Dyslipidemia: Code(s): E78.5 - Hyperlipidemia, unspecified Plan: Labs ordered (2) Osteoporosis: Code(s): M81.0 - Age-related osteoporosis without current pathological fracture Plan: Pt will start alendronate weekly Plan The patient agreed to the use of a medical research scientist for this encounter. Scribed for VANESA Knight by Karie Fry medical research scientist, on 10/10/2023 at 10:55 EST. Medications: New calcium carbonate-vitamin D3 600 mg-12.5 mcg (500 unit) (Calcium 600 with Vitamin D3) 1 cap PO DAILY 90 caps 0RF alendronate 70 mg PO QWEEK 90 days 13 tabs 0RF Coding Level of Care Code Est Pt Level 3 (02967) Diagnoses Dyslipidemia E78.5 Osteoporosis M81.0
== END 2023-10-10 12:03 | disposition home or self-care (01) ==
PROVIDERS: PCP Nurse Practitioner Family; Visit Provider Nurse Practitioner Family
DX: E78.5 Hyperlipidemia, unspecified (principal); M81.0 Age-related osteoporosis without current pathological fracture
CPT/HCPCS: 99213

== ENCOUNTER 2023-10-20 12:56 | Outpatient (REF) | payer MEDICARE, MEDICAID, SELFPAY ==
[2023-10-20 15:59] LABS: MANUAL DIFF FLAG NO
[2023-10-20 16:01] LABS: Appearance Urine Cloudy; Color Urine Yellow; Glucose Urine UA Negative (Negative); Leukocyte Esterase Urine Small (1+) (Negative); Nitrite Urine Negative (Negative); PH 6.5 (5.0-9.0); UMIC TRIGGER UACC YES; Urine Blood Small (1+) (Negative); Urine Ketones Trace mg/dL (Negative); Urine Protein 100 (2+) mg/dL (Neg-Trace)
[2023-10-20 16:04] LABS: Bacteria Urine 2+ (None Seen); Hyaline Casts Urine 0-2 /LPF (0-2); UACC Culture Trigger YES
[2023-10-20 16:09] LABS: Basophils Percent Auto 0.5 % (0-2); Eosinophils Absolute Auto 0.1 X10*3/uL (0.0-0.4); Eosinophils Percent Auto 1.8 % (0-4); Hematocrit 44.4 % (37.0-47.0); Hemoglobin 14.5 g/dl (12.0-16.0); Imm Gran Abs Auto 0.02 X10*3/uL (0.00-0.03); Imm Gran Pct Auto 0.3 % (0.0-0.4); Lymphocytes Absolute Auto 2.2 X10*3/uL (1.2-4.9); Mean Corpuscular HGB Conc 32.7 g/dl (31.0-35.0); Mean Corpuscular Volume 94.9 fL (80.0-98.0); Mean Platelet Volume 11.5 fL (9.4-12.3); Monocytes Absolute Auto 0.4 X10*3/uL (0.1-1.2); Monocytes Percent Auto 5.7 % (2-11); Neutrophils Absolute Auto 3.8 x10*3/uL (2.0-8.3); Neutrophils Percent Auto 57.7 % (45-73); Platelet Count 176 X10*3/uL (160-400); Red Blood Count 4.68 X10*6/uL (4.20-5.50); Red Cell Distribution Width 14.2 % (11.0-16.0); White Blood Count 6.5 X10*3/uL (4.8-10.8)
[2023-10-20 16:29] LABS: Alanine Aminotransferase 99 U/L (0-31); Albumin Level 4.2 g/dL (3.5-5.0); Alkaline Phosphatase 124 U/L (39-117); Anion Gap 12 (12-20); Aspartate Amino Transferase 86 U/L (5-31); Bilirubin Total 0.7 mg/dL (0.0-1.0); Blood Urea Nitrogen 11 mg/dL (9-16); Calcium 9.5 mg/dL (8.4-10.2); Carbon Dioxide 31 mmol/L (22-29); Chloride 106 mmol/L (96-108); Cholesterol 153 mg/dL (<200); Estimated Glomerular Filt Rate > 60; Glucose Fasting 115 mg/dL (60-99); HDL Cholesterol 68 mg/dL (>40); LDL Cholesterol Calculated 56 mg/dL (<100); Potassium 4.3 mmol/L (3.3-5.1); Sodium 145 mmol/L (135-145); Total Protein 7.3 g/dL (6.5-8.0); Triglycerides 147 mg/dL (<150)
[2023-10-20 16:46] LABS: TSH reflex Free T4 1.59 uIU/mL (0.32-4.0); Vitamin D 25-OH Total 61.7 ng/mL (>30)
== END 2023-10-20 12:57 | disposition home or self-care (01) ==
LOC: HO.HMGCLDS 12:56
PROVIDERS: PCP Nurse Practitioner Family; Visit Provider Nurse Practitioner Family
DX: Z00.00 Encounter for general adult medical examination without abnormal findings (principal); Z78.0 Asymptomatic menopausal state
CPT/HCPCS: 36415; 80053; 80061; 81001; 81003; 82306; 84443; 85025; 87086

== ENCOUNTER 2023-10-23 11:13 | Outpatient (REF) | payer MEDICARE, MEDICAID, SELFPAY ==
[2023-10-23 13:38] LABS: Appearance Urine Clear; Color Urine Yellow; Glucose Urine UA Negative (Negative); Leukocyte Esterase Urine Negative (Negative); Nitrite Urine Negative (Negative); PH 5.5 (5.0-9.0); Specific Gravity - Urine 1.015 (1.005-1.025); UMIC TRIGGER UACC YES; Urine Blood Trace (Negative); Urine Ketones Negative (Negative); Urine Protein Negative (Neg-Trace)
[2023-10-23 13:42] LABS: Bacteria Urine None Seen (None Seen); Hyaline Casts Urine 0-2 /LPF (0-2); RBC Urine 0-2 /HPF (0-2); Squamous Epithelial Cell Urine 0-2 /HPF (0-2); WBC Urine 0-5 /HPF (0-5)
[2023-10-24 07:43] LABS: HBS Num1 6.44 mIU/mL (0-7.99); HBc Num1 0.11 S/CO (0.00-0.79); HBsAGNum1 0.24 S/CO (0.00-0.99); Hepatitis A Antibody IgM 0.36 Index (0-0.79); Hepatitis B Core Antibody Nonreactive (Nonreactive); Hepatitis B Surface Antigen Negative (Negative); ~HepC Num1 0.06 S/CO (0.00-0.79); ~Hepatitis A Antibody IgM Nonreactive (Nonreactive); ~Hepatitis B Surface Antibody NONREACTIVE (Nonreactive); ~Hepatitis C Antibody Nonreactive (Nonreactive)
== END 2023-10-23 11:14 | disposition home or self-care (01) ==
LOC: HO.HMGCLDS 11:13
PROVIDERS: PCP Nurse Practitioner Family; Visit Provider Nurse Practitioner Family
DX: Z00.00 Encounter for general adult medical examination without abnormal findings (principal); R74.8 Abnormal levels of other serum enzymes
CPT/HCPCS: 36415; 81001; 86704; 86706; 86709; 86803; 87340

== ENCOUNTER 2023-10-24 09:09 | Outpatient (REF) | payer MEDICARE, MEDICAID, SELFPAY ==
--- NOTE | ~2023-10-24 | US_ITS ---
EXAMINATION: US ABDOMEN COMPLETE CLINICAL INFORMATION: Abnormal levels of other serum enzymes. COMPARISON: CT colonography 11/02/2016. Ultrasound abdomen 05/05/2016. Ultrasound kidneys and bladder 04/15/2016. TECHNIQUE: Real-time imaging of the abdominal viscera. FINDINGS: PANCREAS: Pancreatic duct is at upper limits of normal measuring 3 mm in diameter. No pancreatic mass is seen. No pancreatic calcifications. ABDOMINAL AORTA: The proximal, mid, and distal segments are normal in caliber. INFERIOR VENA CAVA: Visualized portions are normal. LIVER: Accurate liver measurements were not obtained. The liver contour is normal. There is diffuse increased liver parenchymal echogenicity, consistent with hepatic steatosis. Hepatomegaly and fatty infiltration were seen on the prior 11/02/2016 CT scan. No focal hepatic lesion. There is no intrahepatic biliary duct dilatation seen. GALLBLADDER: Surgically absent. COMMON BILE DUCT: Normal in caliber measuring 0.9 cm in diameter. RIGHT KIDNEY: Normal. No hydronephrosis. No renal calculi or focal parenchymal lesions. The kidney measures 10.5 cm in maximum dimension. LEFT KIDNEY: Normal. No hydronephrosis. No renal calculi or focal parenchymal lesions. The kidney measures 9.4 cm in maximum dimension. SPLEEN: Normal. The spleen measures 8.9 cm in maximum dimension. FREE FLUID: None. US/US abdomen complete IMPRESSION: 1. Echogenic liver consistent with hepatic steatosis. 2. Mildly prominent pancreatic duct at 3 mm.
== END 2023-10-24 09:10 | disposition home or self-care (01) ==
LOC: HO.HMGCX 09:09
PROVIDERS: PCP Nurse Practitioner Family; Visit Provider Nurse Practitioner Family
DX: R74.8 Abnormal levels of other serum enzymes (principal)
CPT/HCPCS: 76700

== ENCOUNTER 2023-10-26 13:58 | Outpatient (REF) | payer MEDICARE, MEDICAID, SELFPAY ==
[2023-10-26 16:07] LABS: Urine Cytology See Pathology rpt
[2023-10-26 16:19] LABS: Appearance Urine Clear; Color Urine Yellow; Glucose Urine UA Negative (Negative); Leukocyte Esterase Urine Negative (Negative); Nitrite Urine Negative (Negative); Urine Blood Negative (Negative); Urine Ketones Negative (Negative); Urine Protein Negative (Neg-Trace)
== END 2023-10-26 13:59 | disposition home or self-care (01) ==
LOC: HO.HMGCLDS 13:58
PROVIDERS: PCP Nurse Practitioner Family; Visit Provider Nurse Practitioner Family
DX: R31.29 Other microscopic hematuria (principal)
CPT/HCPCS: 81003; 87086; 88112

== ENCOUNTER 2023-11-22 14:32 | Outpatient (REF) | payer MEDICARE, MEDICAID, SELFPAY ==
[2023-11-22 15:57] LABS: MANUAL DIFF FLAG NO
[2023-11-22 16:09] LABS: Basophils Percent Auto 0.4 % (0-2); Eosinophils Absolute Auto 0.1 X10*3/uL (0.0-0.4); Hematocrit 47.7 % (37.0-47.0); Hemoglobin 15.8 g/dl (12.0-16.0); Imm Gran Abs Auto 0.04 X10*3/uL (0.00-0.03); Imm Gran Pct Auto 0.4 % (0.0-0.4); Lymphocytes Absolute Auto 2.1 X10*3/uL (1.2-4.9); Mean Corpuscular HGB Conc 33.1 g/dl (31.0-35.0); Mean Corpuscular Hemoglobin 31.2 pg (27.0-33.0); Mean Corpuscular Volume 94.1 fL (80.0-98.0); Mean Platelet Volume 11.5 fL (9.4-12.3); Monocytes Absolute Auto 0.5 X10*3/uL (0.1-1.2); Monocytes Percent Auto 5.2 % (2-11); Neutrophils Absolute Auto 7.1 x10*3/uL (2.0-8.3); Platelet Count 192 X10*3/uL (160-400); Red Blood Count 5.07 X10*6/uL (4.20-5.50); Red Cell Distribution Width 13.3 % (11.0-16.0); White Blood Count 9.9 X10*3/uL (4.8-10.8)
[2023-11-22 16:33] LABS: Alanine Aminotransferase 18 U/L (0-31); Albumin Level 4.5 g/dL (3.5-5.0); Alkaline Phosphatase 78 U/L (39-117); Anion Gap 17 (12-20); Aspartate Amino Transferase 20 U/L (5-31); Bilirubin Total 0.6 mg/dL (0.0-1.0); Blood Urea Nitrogen 13 mg/dL (9-16); Calcium 9.6 mg/dL (8.4-10.2); Carbon Dioxide 29 mmol/L (22-29); Chloride 103 mmol/L (96-108); Cholesterol 163 mg/dL (<200); Estimated Glomerular Filt Rate > 60; Glucose Fasting 117 mg/dL (60-99); HDL Cholesterol 50 mg/dL (>40); LDL Cholesterol Calculated 59 mg/dL (<100); Potassium 3.8 mmol/L (3.3-5.1); Sodium 145 mmol/L (135-145); Total Protein 7.6 g/dL (6.5-8.0); Triglycerides 271 mg/dL (<150)
[2023-11-22 16:40] LABS: TSH reflex Free T4 0.99 uIU/mL (0.32-4.0); Vitamin D 25-OH Total 49.9 ng/mL (>30)
[2023-11-23 10:47] LABS: Appearance Urine Clear; Color Urine Dark Yellow; Glucose Urine UA Negative (Negative); Leukocyte Esterase Urine Negative (Negative); Nitrite Urine Negative (Negative); Specific Gravity - Urine 1.025 (1.005-1.025); UMIC TRIGGER UACC YES; Urine Blood Negative (Negative); Urine Ketones Trace mg/dL (Negative); Urine Protein 30 (1+) mg/dL (Neg-Trace)
[2023-11-23 10:54] LABS: Bacteria Urine None Seen (None Seen); Hyaline Casts Urine 0-2 /LPF (0-2); RBC Urine 0-2 /HPF (0-2); Squamous Epithelial Cell Urine 0-2 /HPF (0-2); WBC Urine 0-5 /HPF (0-5)
== END 2023-11-22 14:33 | disposition home or self-care (01) ==
LOC: HO.HMGCLDS 14:32
PROVIDERS: PCP Nurse Practitioner Family; Visit Provider Nurse Practitioner Family
DX: M81.0 Age-related osteoporosis without current pathological fracture (principal); E78.5 Hyperlipidemia, unspecified; I10 Essential (primary) hypertension
CPT/HCPCS: 36415; 80053; 80061; 81001; 82306; 84443; 85025

== ENCOUNTER 2023-11-29 10:04 | Outpatient (REF) | payer MEDICARE, MEDICAID, SELFPAY ==
[2023-11-29 13:29] LABS: Appearance Urine Cloudy; Color Urine Yellow; Glucose Urine UA Negative (Negative); Leukocyte Esterase Urine Trace (Negative); Nitrite Urine Negative (Negative); UMIC TRIGGER UACC YES; Urine Blood Negative (Negative); Urine Ketones Negative (Negative); Urine Protein Negative (Neg-Trace)
[2023-11-29 13:44] LABS: Bacteria Urine None Seen (None Seen); Hyaline Casts Urine 0-2 /LPF (0-2); RBC Urine 0-2 /HPF (0-2); Squamous Epithelial Cell Urine 0-2 /HPF (0-2); WBC Urine 0-5 /HPF (0-5)
== END 2023-11-29 10:05 | disposition home or self-care (01) ==
LOC: HO.HMGCLDS 10:04
PROVIDERS: PCP Nurse Practitioner Family; Visit Provider Nurse Practitioner Family
DX: R80.9 Proteinuria, unspecified (principal)
CPT/HCPCS: 81001

== ENCOUNTER 2023-11-30 11:25 | Outpatient (REF) | payer MEDICARE, MEDICAID, SELFPAY ==
--- NOTE | ~2023-11-30 | CT_ITS ---
EXAMINATION: CT ABDOMEN AND PELVIS WITHOUT AND WITH CONTRAST CLINICAL INFORMATION: Microscopic hematuria. Microscopic hematuria. COMPARISON: CT: Moderate feces 11/02/2016, abdominal ultrasound 10/24/2023. TECHNIQUE: Noncontrast CT of the abdomen and pelvis is performed followed by split bolus contrast-enhanced images using 100 mL Omnipaque 350 contrast.? Postcontrast imaging is performed during the combined nephrogram and excretion phase. Sagittal and coronal reformatted images were obtained on the technologist's workstation for both the precontrast and postcontrast phases. This CT examination was performed using dose optimization techniques as appropriate, variously including the following: *Automated exposure control *Adjustment of mA and/or kV according to patient size (this includes techniques or standardized protocols for targeted exams where dose is matched to indication/reason for exam; i.e. extremities or head) *Use of iterative reconstruction technique DLP: 1482 mGy-cm FINDINGS: LUNG BASES: Scarring at the lung bases. LIVER, GALLBLADDER, AND BILIARY TREE: The liver is normal in size, shape, and attenuation. No focal hepatic mass. There is mild biliary ductal dilatation in the setting of cholecystectomy which is consistent with reservoir effect. PANCREAS: No discrete pancreatic mass or pancreatic ductal dilatation. SPLEEN: Unremarkable. ADRENAL GLANDS: Coarse calcifications in the left adrenal gland may relate to prior infection or hemorrhage. This is unchanged compared to prior CT: Mammography. KIDNEYS AND URETERS: No nephrolithiasis. Nephrograms are symmetric. No suspicious renal mass. Tiny cortical hypodensities lower pole right kidney and mid pole right kidney are too small to characterize, but most likely cysts. No imaging follow-up is recommended. Urinary excretion of contrast is symmetric. No hydroureteronephrosis. No filling defects in the collecting systems or ureters. BLADDER: No discrete bladder mass. The bladder wall appears mildly trabeculated. GASTROINTESTINAL TRACT: Small hiatal hernia. Small and large bowel are normal in caliber. ABDOMINAL WALL: No significant hernia is appreciated. LYMPH NODES: No pathologically enlarged lymph nodes VASCULAR: No aortic aneurysm. Minimal atherosclerotic disease. PELVIC VISCERA: Unremarkable. OSSEUS STRUCTURES: Mild degenerative changes in the spine. CT/CT urogram IMPRESSION: No explanation for hematuria. Mildly trabeculated bladder wall without discrete bladder mass.
[2023-11-30] MEDS: iohexoL 350 MG/ML 100 ML INFUS..BTL IV (13:05)
== END 2023-11-30 11:26 | disposition home or self-care (01) ==
LOC: HO.CT 11:25
PROVIDERS: PCP Nurse Practitioner Family; Visit Provider Nurse Practitioner Family
DX: R31.29 Other microscopic hematuria (principal)
CPT/HCPCS: 74178; Q9967

== ENCOUNTER 2023-12-15 14:01 | Outpatient (REF) | payer MEDICARE, MEDICAID, SELFPAY ==
[2023-12-15 18:42] LABS: Urine Cytology See Pathology rpt
== END 2023-12-15 14:02 | disposition home or self-care (01) ==
LOC: HO.LAB 14:01
PROVIDERS: PCP Nurse Practitioner Family; Visit Provider Nurse Practitioner Family
DX: R31.29 Other microscopic hematuria (principal); F12.90 Cannabis use, unspecified, uncomplicated; R82.89 Other abnormal findings on cytological and histological examination of urine
CPT/HCPCS: 81003; 88112; 99202

== ENCOUNTER 2023-12-15 14:01 | Outpatient (AMB) | payer MEDICARE, MEDICAID, SELFPAY ==
--- NOTE | 2023-12-15 14:05 | A.OFFVIS_ITS ---
Intake Visit Reasons: microscopic hematuria Intake Note: Erika is a 63 year old female who presents to the office today for microscopic hematuria. Urology meds:None Blood thinners:None Allergies gabapentin [GABAPENTIN] Allergy (Unknown, Verified 12/15/23 14:14) VOMITING levofloxacin [From LEVAQUIN] Allergy (Unknown, Verified 12/15/23 14:14) VOMITING/FEVER pregabalin Adverse Reaction (Unknown, Verified 12/15/23 14:14) loss of memory Mirtazapine Adverse Reaction (Unknown, Uncoded 12/15/23 14:14) feels horrible Medication List - Last Reconciled 12/15/23 by Helen Sims, INTERNET MARKETING SPECIALIST- alendronate 70 mg PO QWEEK 90 days alprazolam 1 mg PO BID PRN calcium carbonate-vitamin D3 600 mg-12.5 mcg (500 unit) (Calcium 600 with Vitamin D3) 1 cap PO DAILY citalopram 30 mg PO QAM clonazepam 2 mg PO BEDTIME hydrochlorothiazide 25 mg PO DAILY 90 days pramipexole 0.75 mg PO BEDTIME 90 days rosuvastatin 10 mg PO DAILY 30 days zolpidem 10 mg PO BEDTIME PRN 30 days HPI Comments Details: Erika is a very pleasant 63-year-old female patient of Dr. Suggs who was accompanied by her daughter at today's office visit. She has a past medical history of heart murmur, hyperlipidemia, hypercholesteremia, anxiety, lumbar radiculopathy, restless leg syndrome, nerve root compression, sleep apnea, and depression. She presents to the office today as a new patient for microscopic hematuria. In discussion with the patient today she discusses having had a previous microscopic hematuria workup in the past and was told microscopic hematuria was related to possible vaginal changes and cystoscopy noted no abnormalities. She reports having followed up with her PCP and microscopic hematuria was noted at which time a CT urogram was ordered and recommendations were made for urology referral for further assessment evaluation. These results were reviewed with the patient today. No nephrolithiasis. Nephrograms are symmetrical. No suspicious renal mass. Tiny cortical hypodensities most likely cyst that require no imaging follow-up per radiology report. Urinary excretion of contrast is symmetric. No hydroureteronephrosis. No filling defects in the collecting systems or ureters. No discrete bladder mass. The bladder wall appears mildly trabeculated. When asked she does report a previous history of chemical exposure in the [place] as well as smoking medical marijuana daily. She otherwise denies any bothersome urinary issues. She denies urinary urgency, urinary frequency, incontinence, nocturia, dysuria, foul smelling urine, changes to urinary stream, flank pain, fever, and or chills. She is happy with her current voiding parameters. I discussed reasons for blood in the urine may include but are not limited to kidney stones, cancer in the urinary tract, kidney stone disease or inflammatory conditions of the urinary tract. I have discussed workup to include cystoscopy evaluation. Urine cytology reviewed 11/05 Rare atypical urothelial cells present. She otherwise offers no other issues or concerns at this time. [facility] Medical History Heart murmur Hyperlipidemia Hematuria Elevated cholesterol Sacroiliitis Right hip pain Lower extremity edema Lumbar radiculopathy Anxiety disorder Restless leg syndrome Nerve root compression Chronic foot pain Sleep apnea Depression Surgical History History of excision of pilonidal cyst Hx of foot surgery Hx of appendectomy Hx of cholecystectomy History of colonoscopy History of microdiscectomy H/O synovectomy Family History Father No problems noted. Mother CVD (cardiovascular disease) S/P triple vessel bypass Myocardial infarct Social History Housing: House Alcohol intake: never Patient Tobacco Use Status: Former Tobacco user Tobacco use type: Cigarette e-Cigarette/Vaping Use: Never Used Second Hand Smoke Exposure: No Current occupational status: unemployed Current occupation: right handed Cognitive needs: No Hearing needs: No Vision needs: No Review of Systems Eyes Reports no additional complaints ENT Reports no additional complaints Card Reports as per HPI Resp Reports as per HPI GI Reports no additional complaints Reports as per HPI Musc Reports as per HPI Neuro Reports no additional complaints Psych Reports as per HPI Endo Reports no additional complaints Anup/Lymph Reports no additional complaints Aller/Immun Reports no additional complaints Physical Exam Const General: cooperative, healthy appearing, comfortable, no acute distress, well developed, alert and awake Orientation/consciousness: patient oriented x3 Limitations: no limitations HEENT Head: Yes normal to inspection, Yes normocephalic and Yes atraumatic Ears: hearing grossly normal bilaterally Eyes General: appearance normal, both eyes and all related structures Neck Neck: Yes normal visual inspection and Yes trachea midline Chest Chest palpation & inspection: normal inspection of the chest Resp Effort & Inspection: normal respiratory effort and able to speak in complete sentences Cardio Rate: regular rate GI Inspection: Yes normal to inspection General: Yes no CVA tenderness Back/Spine/Pelvis Back: no CVA tenderness Skin General skin exam: no rashes or lesions noted Neuro General: patient oriented x3 Extrem General: Yes normal to inspection Psych Appearance: grossly normal and well kempt Mental Status: mental status grossly normal Speech and movement: Normal speech and movement present and Clear speech present Affect: normal affect Attitude: cooperative Thought process: Normal thought process present Thought content: Normal thought content present Insight: Fair insight present (Psych) Judgement: Fair judgement present (Psych) Results AMB Urinalysis, Automated UA Leukoctes 0 Yazan/uL Last Edit by Bianca Del Cid CMA on 12/15/23 14:15 UA Nitrite Negative Last Edit by Bianca Del Cid CMA on 12/15/23 14:15 UA Urobilinogen 0.2 mg/dL Last Edit by Bianca Del Cid CMA on 12/15/23 14:15 UA Protein 30 mg/dL Last Edit by Bianca Del Cid CMA on 12/15/23 14:15 UA pH 6.0 Last Edit by Bianca Del Cid CMA on 12/15/23 14:15 UA Blood 10 Luis Miguel/uL Last Edit by Bianca Del Cid CMA on 12/15/23 14:15 UA Specific [place] 1.020 Last Edit by Bianca Del Cid CMA on 12/15/23 14:15 UA Ketone Positive Last Edit by Bianca Del Cid CMA on 12/15/23 14:15 UA Bilirubin 1 mg/dL Last Edit by Bianca Del Cid CMA on 12/15/23 14:15 UA Glucose 0 mg/dL Last Edit by Bianca Del Cid CMA on 12/15/23 14:15 Results Reviewed Results Reviewed: Laboratory Last Values Urine pH (Auto) 6.0 12/15/23 14:14 Specific [place] (Auto) 1.020 12/15/23 14:14 Urine Protein (Auto) 30 mg/dL 12/15/23 14:14 Glucose (UA)(Auto) 0 mg/dL 12/15/23 14:14 Urine Ketones (Auto) Positive 12/15/23 14:14 Urine Blood (Auto) 10 Luis Miguel/uL 12/15/23 14:14 Urine Nitrite (Auto) Negative 12/15/23 14:14 Urine Bilirubin (Auto) 1 mg/dL 12/15/23 14:14 Urine Urobilinogen (Auto) 0.2 mg/dL 12/15/23 14:14 Leukocyte Esterase (Auto) 0 Yazan/uL 12/15/23 14:14 Date of Service: 11/30/23 EXAMINATION: CT ABDOMEN AND PELVIS WITHOUT AND WITH CONTRAST FINDINGS: LUNG BASES: Scarring at the lung bases. LIVER, GALLBLADDER, AND BILIARY TREE: The liver is normal in size, shape, and attenuation. No focal hepatic mass. There is mild biliary ductal dilatation in the setting of cholecystectomy which is consistent with reservoir effect. PANCREAS: No discrete pancreatic mass or pancreatic ductal dilatation. SPLEEN: Unremarkable. ADRENAL GLANDS: Coarse calcifications in the left adrenal gland may relate to prior infection or hemorrhage. This is unchanged compared to prior CT: Mammography. KIDNEYS AND URETERS: No nephrolithiasis. Nephrograms are symmetric. No suspicious renal mass. Tiny cortical hypodensities lower pole right kidney and mid pole right kidney are too small to characterize, but most likely cysts. No imaging follow-up is recommended. Urinary excretion of contrast is symmetric. No hydroureteronephrosis. No filling defects in the collecting systems or ureters. BLADDER: No discrete bladder mass. The bladder wall appears mildly trabeculated. GASTROINTESTINAL TRACT: Small hiatal hernia. Small and large bowel are normal in caliber. ABDOMINAL WALL: No significant hernia is appreciated. LYMPH NODES: No pathologically enlarged lymph nodes VASCULAR: No aortic aneurysm. Minimal atherosclerotic disease. PELVIC VISCERA: Unremarkable. OSSEUS STRUCTURES: Mild degenerative changes in the spine. IMPRESSION: No explanation for hematuria. Mildly trabeculated bladder wall without discrete bladder mass. Assessment & Plan Assessment & Plan (1) Microscopic hematuria: Code(s): R31.29 - Other microscopic hematuria Category: Medical (2) Marijuana smoker: Code(s): F12.90 - Cannabis use, unspecified, uncomplicated Category: Medical (3) Abnormal urine cytology: Code(s): R82.89 - Other abnormal findings on cytological and histological examination of urine Category: Medical Plan In office urinalysis results reviewed with the patient today; as noted above; will send for urine cytology. Discussed at length potential causes for microscopic hematuria. Reviewed recent urine cytology results with the patient today; as noted above. Recent CT urogram results reviewed with the patient and her daughter today Discussed further workup to include in office cystoscopy Risks and benefits of further workup was discussed. She otherwise denies any bothersome urinary issues. She reports be happy with current voiding parameters. Will schedule for in office cystoscopy as discussed Follow-up per doctor's orders; or sooner with any issues, concerns, and or questions. Orders: Orders Urine Cytology Today R31.29 - Other microscopic hematuria AMB Urinalysis Automated Today Z13.9 - Encounter for screening, unspecified Patient Instructions: The patient had an opportunity to ask questions regarding the treatment plan. All questions were answered. Physical exam, labs, and imaging were discussed and reviewed in detail. As well as risks, benefits, and discussion of treatment choices. No major barriers to understanding were identified. The patient expressed understanding and agreement with the above treatment plan. The patient was made aware they should contact our office by phone for worsening of their current condition, the appearance of new symptoms, or with any questions or concerns. Compliance is encouraged with any medications and follow up testing that is ordered. It is a privilege to be allowed the opportunity to participate in? your urological care.? Again, if you have any questions or concerns If you have any questions or concerns please do not hesitate to contact me. The office is [phone]. This note is constructed using voice recognition software. While every effort has been made to ensure accuracy oil derrick operator errors may have been included. Yours sincerely, VANESA Villarreal Coding Level of Care Code New Pt Level 3 (34399) Diagnoses Microscopic hematuria R31.29 Marijuana smoker F12.90 Abnormal urine cytology R82.89
== END 2023-12-15 14:49 | disposition home or self-care (01) ==
PROVIDERS: PCP Nurse Practitioner Family; Visit Provider Nurse Practitioner Family
DX: R31.29 Other microscopic hematuria (principal); F12.90 Cannabis use, unspecified, uncomplicated; R82.89 Other abnormal findings on cytological and histological examination of urine; Z13.9 Encounter for screening, unspecified
CPT/HCPCS: 99203

== ENCOUNTER 2024-01-26 14:24 | Outpatient (AMB) | payer MEDICARE, MEDICAID, SELFPAY ==
--- NOTE | 2024-01-26 14:25 | MHC.OFFVIS ---
Intake Visit Reasons: cysto Intake Note: Allergies:Levaquin Urology Medication:none Visit Reason: Cysto Allergies gabapentin [GABAPENTIN] Allergy (Unknown, Verified 01/26/24 14:29) VOMITING levofloxacin [From LEVAQUIN] Allergy (Unknown, Verified 01/26/24 14:29) VOMITING/FEVER pregabalin Adverse Reaction (Unknown, Verified 01/26/24 14:29) loss of memory Mirtazapine Adverse Reaction (Unknown, Uncoded 12/15/23 14:14) feels horrible HPI Comments Details: 01/26/24--Erika is here for office cystoscopy. She states that her brother is being treated for bladder cancer and that cancer runs in her family, including bone cancer and skin cancer. I have reviewed CT urogram, urinary tract was within normal limits. Urine cytology x2 noted atypical cells. Cystoscopy findings: No intrinsic lesions visualized. Prominent vasculature; Very mild erythematous changes- nonspecific. I have discussed further evaluation with cystoscopy bladder biopsies, bilateral retrogrades and will repeat urine cytology. Review of chart: 12/15/23--Erika is a very pleasant 63-year-old female patient of Dr. Suggs who was accompanied by her daughter at today's office visit. She has a past medical history of heart murmur, hyperlipidemia, hypercholesteremia, anxiety, lumbar radiculopathy, restless leg syndrome, nerve root compression, sleep apnea, and depression. She presents to the office today as a new patient for microscopic hematuria. In discussion with the patient today she discusses having had a previous microscopic hematuria workup in the past and was told microscopic hematuria was related to possible vaginal changes and cystoscopy noted no abnormalities. She reports having followed up with her PCP and microscopic hematuria was noted at which time a CT urogram was ordered and recommendations were made for urology referral for further assessment evaluation. These results were reviewed with the patient today. No nephrolithiasis. Nephrograms are symmetrical. No suspicious renal mass. Tiny cortical hypodensities most likely cyst that require no imaging follow-up per radiology report. Urinary excretion of contrast is symmetric. No hydroureteronephrosis. No filling defects in the collecting systems or ureters. No discrete bladder mass. The bladder wall appears mildly trabeculated. When asked she does report a previous history of chemical exposure in the [place] as well as smoking medical marijuana daily. She otherwise denies any bothersome urinary issues. She denies urinary urgency, urinary frequency, incontinence, nocturia, dysuria, foul smelling urine, changes to urinary stream, flank pain, fever, and or chills. She is happy with her current voiding parameters. I discussed reasons for blood in the urine may include but are not limited to kidney stones, cancer in the urinary tract, kidney stone disease or inflammatory conditions of the urinary tract. I have discussed workup to include cystoscopy evaluation. Urine cytology reviewed 11/05 Rare atypical urothelial cells present. She otherwise offers no other issues or concerns at this time. [facility] Medical History Heart murmur Hyperlipidemia Hematuria Elevated cholesterol Sacroiliitis Right hip pain Lower extremity edema Lumbar radiculopathy Anxiety disorder Restless leg syndrome Nerve root compression Chronic foot pain Sleep apnea Depression Surgical History History of excision of pilonidal cyst Hx of foot surgery Hx of appendectomy Hx of cholecystectomy History of colonoscopy History of microdiscectomy H/O synovectomy Family History Father No problems noted. Mother CVD (cardiovascular disease) S/P triple vessel bypass Myocardial infarct Social History Housing: House Alcohol intake: never Patient Tobacco Use Status: Former Tobacco user Tobacco use type: Cigarette e-Cigarette/Vaping Use: Never Used Second Hand Smoke Exposure: No Current occupational status: unemployed Current occupation: right handed Cognitive needs: No Hearing needs: No Vision needs: No Review of Systems Const All systems reviewed & are unremarkable except as noted in HPI and below Reports no additional complaints Eyes Reports no additional complaints ENT Reports no additional complaints Card Reports no additional complaints Resp Reports no additional complaints GI Reports no additional complaints Reports as per HPI Musc Reports no additional complaints Skin/Breast Reports system reviewed and no additional complaints, except as documented Neuro Reports no additional complaints Psych Reports no additional complaints Endo Reports no additional complaints Anup/Lymph Reports no additional complaints Aller/Immun Reports no additional complaints Office Procedures Cystoscopy Consent Discussed risk and benefit or proposed procedure with the patient. Information consent for procedure given to the patient. Discussed technical aspects, risks, benefits and alternatives in full. Addressed all of the patient's questions and concerns regarding the procedure. The patient demonstrated knowledge and understanding. They wish to proceed with this procedure. Preparation The patient was prepped in the usual manner. A senior marketing specialist was present and in the room. Genitalia was prepped with betadine solution in a sterile manner. Lidocaine Jelly 2% was placed into the urethra and 16Fr flexible Olympus cystoscope was inserted into the meatus after adequate lubrication. Procedure Time out per protocol performed. Bladder Inspection Bladder Inspection: The bladder was inspected in its entirety with utilization retroflexion displaying: Tumor(s): no suspicious bladder lesions visualized Trabeculation: Mild Mucosal Erthema: Mild Orifices: normal shape and position Urethra: normal Cystoscopy findings: No intrinsic lesions visualized. Prominent vasculature; Very mild erythematous changes- nonspecific. [id number] DISPOSABLE SCOPE URO-G FLEXIBLE SCOPE Procedure code (CPT) selection complete Office Meds lidocaine HCl 2 % mucosal jelly in applicator Performing Provider: Titi Abdul MD Performing Location: [facility] Administered by: Cedrick Kent LPN on 01/26/24 14:46 Dose Route Admin Location Dispensed Lot Number Expiration Date [facility] Floor Winder 10 mL intra-urethral 10 mL nitrofurantoin monohydrate/macrocrystals 100 mg capsule Performing Provider: Titi Abdul MD Performing Location: [facility] Administered by: Cedrick Kent LPN on 01/26/24 14:46 Dose Route Admin Location Dispensed Lot Number Expiration Date [place] Floor Winder 100 mg PO 1 cap naproxen 500 mg tablet Performing Provider: Titi Abdul MD Performing Location: [facility] Administered by: Cedrick Kent LPN on 01/26/24 14:46 Dose Route Admin Location Dispensed Lot Number Expiration Date [place] Floor Winder 500 mg PO 1 tab Results AMB Urinalysis, Automated UA Leukoctes 0 Yazan/uL Last Edit by Jillian Melendez on 01/26/24 14:39 UA Nitrite Negative Last Edit by Jillian Melendez on 01/26/24 14:39 UA Urobilinogen 1 mg/dL Last Edit by Jillian Melendez on 01/26/24 14:39 UA Protein 15 mg/dL Last Edit by Jillian Melendez on 01/26/24 14:39 UA pH 8.5 Last Edit by Jillian Melendez on 01/26/24 14:39 UA Blood 0 Luis Miguel/uL Last Edit by Jillian Melendez on 01/26/24 14:39 UA Specific [place] 1.015 Last Edit by Jillian Melendez on 01/26/24 14:39 UA Ketone Negative Last Edit by Jillian Melendez on 01/26/24 14:39 UA Bilirubin 0 mg/dL Last Edit by Jillian Melendez on 01/26/24 14:39 UA Glucose 0 mg/dL Last Edit by Jillian Melendez on 01/26/24 14:39 Results Reviewed Results Reviewed: Laboratory Last Values Urine pH (Auto) 8.5 01/26/24 14:38 Specific [place] (Auto) 1.015 01/26/24 14:38 Urine Protein (Auto) 15 mg/dL 01/26/24 14:38 Glucose (UA)(Auto) 0 mg/dL 01/26/24 14:38 Urine Ketones (Auto) Negative 01/26/24 14:38 Urine Blood (Auto) 0 Luis Miguel/uL 01/26/24 14:38 Urine Nitrite (Auto) Negative 01/26/24 14:38 Urine Bilirubin (Auto) 0 mg/dL 01/26/24 14:38 Urine Urobilinogen (Auto) 1 mg/dL 01/26/24 14:38 Leukocyte Esterase (Auto) 0 Yazan/uL 01/26/24 14:38 Date of Service: 11/30/23 EXAMINATION: CT ABDOMEN AND PELVIS WITHOUT AND WITH CONTRAST FINDINGS: LUNG BASES: Scarring at the lung bases. LIVER, GALLBLADDER, AND BILIARY TREE: The liver is normal in size, shape, and attenuation. No focal hepatic mass. There is mild biliary ductal dilatation in the setting of cholecystectomy which is consistent with reservoir effect. PANCREAS: No discrete pancreatic mass or pancreatic ductal dilatation. SPLEEN: Unremarkable. ADRENAL GLANDS: Coarse calcifications in the left adrenal gland may relate to prior infection or hemorrhage. This is unchanged compared to prior CT: Mammography. KIDNEYS AND URETERS: No nephrolithiasis. Nephrograms are symmetric. No suspicious renal mass. Tiny cortical hypodensities lower pole right kidney and mid pole right kidney are too small to characterize, but most likely cysts. No imaging follow-up is recommended. Urinary excretion of contrast is symmetric. No hydroureteronephrosis. No filling defects in the collecting systems or ureters. BLADDER: No discrete bladder mass. The bladder wall appears mildly trabeculated. GASTROINTESTINAL TRACT: Small hiatal hernia. Small and large bowel are normal in caliber. ABDOMINAL WALL: No significant hernia is appreciated. LYMPH NODES: No pathologically enlarged lymph nodes VASCULAR: No aortic aneurysm. Minimal atherosclerotic disease. PELVIC VISCERA: Unremarkable. OSSEUS STRUCTURES: Mild degenerative changes in the spine. IMPRESSION: No explanation for hematuria. Mildly trabeculated bladder wall without discrete bladder mass. Urine Cytology--Collected: 12/15/23 Location: .LAB Received: 12/18/23 Diagnosis Urine: Rare atypical urothelial cells. COMMENT: Examination of a monolayer preparation slide shows many benign squamous cells, scattered benign urothelial cells with focal reactive changes, and rare urothelial cells with mild increased nuclear:cytoplasmic ratios meeting the criteria for atypia. There are also occasional read blood cells and inflammatory cells. Clinical History Microscopic hematuria Material Received Urine Gross Description Received is 52 cc of cloudy orange fluid from which a ThinPrep slide is prepared. Assessment & Plan Assessment & Plan (1) Microscopic hematuria: Code(s): R31.29 - Other microscopic hematuria Category: Medical (2) Abnormal urine cytology: Code(s): R82.89 - Other abnormal findings on cytological and histological examination of urine Category: Medical Plan I have discussed further evaluation with cystoscopy bladder biopsies, bilateral retrogrades and will repeat urine cytology. Orders: Orders Urine Cytology 01/29/24 N39.0 - Urinary tract infection, site not specified AMB Cystoscopy 01/26/24 R31.29 - Other microscopic hematuria, R80.9 - Proteinuria, unspecified, R82.89 - Other abnormal findings on cytological and histological examination of urine Urine Cytology 01/29/24 N39.0 - Urinary tract infection, site not specified Patient Instructions: The patient had an opportunity to ask questions regarding treatment plan. The patient expressed understanding and agreement with the above treatment plan. The patient is aware they should contact our office by phone for worsening of their current condition or the appearance of new symptoms. Compliance is encouraged with any medications and followup testing that is ordered. It is a privilege to be allowed the opportunity to participate in the urologic care of your patient. If you have any questions or concerns regarding treatment for the above conditions please do not hesitate to contact me. The office telephone contact is [phone]. This note is constructed in part using voice recognition software. While every effort has been made to ensure accuracy bridge toll collector errors may have been included. Yours sincerely, Titi Abdul MD Coding Level of Care Code Est Pt Level 4 (24644) Diagnoses Microscopic hematuria R31.29 Abnormal urine cytology R82.89 CPT Codes Cystoscopy - CPT: [id number] ([id number])
== END 2024-01-26 15:05 | disposition home or self-care (01) ==
PROVIDERS: PCP Nurse Practitioner Family; Visit Provider Urology
DX: R31.29 Other microscopic hematuria (principal); R82.89 Other abnormal findings on cytological and histological examination of urine
CPT/HCPCS: 52000; 99214

== ENCOUNTER 2024-01-26 14:24 | Outpatient (REF) | payer MEDICARE, MEDICAID, SELFPAY | END 2024-01-26 14:25 | disposition home or self-care (01) | LOC: HO.LAB 14:24 | PROVIDERS: PCP Nurse Practitioner Family; Visit Provider Urology | DX: R31.29 Other microscopic hematuria (principal); R82.89 Other abnormal findings on cytological and histological examination of urine; N39.0 Urinary tract infection, site not specified | CPT/HCPCS: 52000; 99212 ==

== ENCOUNTER 2024-01-29 11:51 | Outpatient (REF) | payer MEDICARE, MEDICAID, SELFPAY ==
[2024-01-29 13:34] LABS: Urine Cytology See Pathology rpt
== END 2024-01-29 11:52 | disposition home or self-care (01) ==
LOC: HO.HMGCLDS 11:51
PROVIDERS: PCP Nurse Practitioner Family; Visit Provider Urology
DX: N39.0 Urinary tract infection, site not specified (principal)
CPT/HCPCS: 88112

== ENCOUNTER 2024-01-30 11:59 | Day surgery (SDC) | payer MEDICARE, MEDICAID, SELFPAY ==
[2024-01-30] VITALS (7 sets, daily range): BP systolic 134–160; BP diastolic 44–64; PULSE 48–74; RESP 16–18; TEMP 36.4–37.1; O2SAT 97–100; BMI 31.2
--- OUTSIDE RECORDS SUMMARY | 2024-01-30 12:01 | XMS_ITS ---
Author Organization [facility] Address [address] [place] [address] Care Team Providers Care Soil Field Technician Name Role Phone DMITRIY ELIZONDO Primary Care Provider Jean Clarke Jr Unavailable REASON FOR VISIT screening Encounters Encounter Location Date Provider Diagnosis [facility] Outpatient [address] [place] [id number] 08/22/2023 Jean Mcneill Jr Encounter for screening colonoscopy Z12.11 and Colon polyps K63.5 ASSESSMENTS Encounter Date Diagnosis Assessment Notes Treatment Notes Treatment Clinical Notes 08/22/2023 Encounter for screening colonoscopy (ICD-10 - Z12.11) 08/22/2023 Colon polyps (ICD-10 - K63.5) PLAN OF TREATMENT No Information
--- OUTSIDE RECORDS SUMMARY | 2024-01-30 12:01 | XMS_ITS ---
Author Organization [facility] Address [address] [place] [address] Care Team Providers Care Wall Taper Helper Name Role Phone DMITRIY ELIZONDO Primary Care Provider Jean Clarke Jr [phone] REASON FOR VISIT pathology Encounters Encounter Location Date Provider Diagnosis [facility] [address] [place] [address] 09/07/2023 Jean Mcneill Jr PLAN OF TREATMENT No Information
--- OUTSIDE RECORDS SUMMARY | 2024-01-30 12:01 | XMS_ITS ---
Author Organization [facility] Address [address] [place] [phone] Care Team Providers Care Rn Field Case Manager Name Role Phone DMITRIY ELIZONDO Primary Care Provider Jean Clarke Jr [phone] REASON FOR VISIT please lock 07-13-2023 office note Encounters Encounter Location Date Provider Diagnosis [facility] [address] [place] [address] 07/20/2023 Jean Mcneill Jr PLAN OF TREATMENT No Information
--- OUTSIDE RECORDS SUMMARY | 2024-01-30 12:01 | XMS_ITS | Patient Health Record ---
Author Organization [facility] Address [address] [place] [address] Team Providers Care [address] Scan Special Procedures Technologist Name Role Phone DMITRIY ELIZONDO Primary Care Provider Jean Clarke Jr Unavailable ALLERGIES Allergen (clinical drug ingredient) Drug/Non Drug Allergy documented on EMR Reaction Allergy Type Onset Date Status pregabalin Lyrica Unknown Drug Allergy Active Levaquin Unknown Drug Allergy Active gabapentin Gabapentin Unknown Drug Allergy Activ e RESULTS Component Value Reference Range Notes Pathology Reviewed date:09/07/2023 09:21:02 AM Interpretation: Performing Lab:[facility], [address] [place] [id number] Notes/Report: REASON FOR REFERRAL No Information MEDICATIONS Medication SIG (Take, Route, Frequency, Duration) Notes Start Date End Date Status Dulcolax (colon prep) 5 MG take at 3:00 p.m and 7:00p.m. Orally two tablets twice a day for one day for 1 day 07/17/2023 Active MiraLax (colon prep) 8.3 ounce ((238) grams mixed with Gatorade or Crystal Light orally begin at 5:00 p.m. the day before the procedure for 1 day 07/17/2023 Active Vitamin D3 1.25 MG (58633 UT) TAKE 1 CAPSULE BY MOUTH 1 TIME A WEEK Oral for 90 M810,Unavaila ble Active Alendronate Sodium 70 MG TAKE 1 TABLET B Y MOUTH EVERY 7 DAYS Oral for 84 M810,Unavaila ble Active Multi Vitamin/Minerals - Orally Active Calcium 600 + D 600-200 MG-UNIT Orally Active hydroCHLOROthiazide 25 MG 1 tablet Orall y Once a day Active clonazePAM 1 MG 2 tablet Orally QHS Active MiraLax (colon prep) 17 GM/SCOOP mixed with Gatorade or Crystal Light Orally begin at 5:00 p.m. the day before the procedure for 1 day 07/13/2023 Active Pramipexole Dihydrochloride 0.5 MG 1 tablet before bedtime Orally QHS Active Citalopram Hydrobromide 20 MG TAKE 1 AND 1/2 TABLETS BY MOUTH EVERY MORNING Oral for 90 Active Zolpidem Tartrate 10 MG TAKE 1 TABLET BY MOUTH AT BEDTIME NEEDED Oral for 30 Active ALPRAZolam 1 MG Oral for 30 Ac tive Acetaminophen-Codeine 300-30 MG Oral for 10 Active Rosuvastatin Calcium 10 MG TAKE 1 TABLET BY MOUTH DAILY Oral for 90 Active SOCIAL HISTORY Sex Assigned At : Social History Observation Description Sex Assigned At Unknown PROBLEMS Problem Type ICD Code Onset Dates Problem Status W/U Status Risk SNOMED Code Notes Problem Colon cancer screening (Z12.11) Active confirmed 395183134 Problem Encounter for other preprocedural examination (Z01.818) Active confirmed 33342868 Problem long-term 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 (Z79.899) Active confirmed [id number] VITAL SIGNS Temperature 94.4 degrees Fahrenheit 07/13/2023 Blood pressure diastolic 00 mm Hg 07/13/2023 Height 63 in 07/13/2023 Blood pressure systolic 00 mm Hg 07/13/2023 Weight 178 lbs 07/13/2023 BMI 31.53 kg/m2 07/13/2023 Encounters Encounter Location Date Provider Diagnosis [facility] [address] [place] [id number] 08/22/2023 Jean Mcneill Jr Encounter for screening colonoscopy Z12.11 and Colon polyps K63.5 [facility] [address] [place] [phone] 07/13/2023 Jean Mcneill Jr Colon cancer screening Z12.11 and 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 Z79.899 [facility] [address] [place] [phone] 07/13/2023 Jean Mcneill Jr [facility] [address] [place] [phone] 07/20/2023 Jean Mcneill Jr [facility] [address] [place] [address] 09/07/2023 Jean Mcneill Jr ASSESSMENTS Encounter Date Diagnosis Assessment Notes Treatment Notes Treatment Clinical Notes 08/22/2023 Encounter for screening colonoscopy (ICD-10 - Z12.11) 08/22/2023 Colon polyps (ICD-10 - K63.5) 07/13/2023 Colon cancer screening (ICD-10 - Z12.11) 07/13/2023 long-term 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 (ICD-10 - Z79.899) PLAN OF TREATMENT Pending Test Test Name Order Date COLONOSCOPY WITH BIOPSY 02/02/2011 Future Test Test Name Order Date COLONOSCOPY 05/25/2016 COLONOSCOPY 07/13/2023 Insurance Providers Payer Name Payer Address Payer Phone Subscriber Number Group Number Insured Name Patient Relationship to Insured Coverage Start Date Coverage End Date MEDICARE OF [place] [address] [place] [address] [id number] KIMBERLY CASTANEDA Self - patient is the insured MEDICAID OF [facility] [address] [place] [address] [id number] KIMBERLY CASTANEDA Self - patient is the insured MEDICAL (GENERAL) HISTORY Medical History History ICD Code Colonoscopy 10/29, incomplete due to looping/redundant colon. CT colonography negative for any lesions. Five-year followup due to prior history of polyps. restless leg syndrome lower extremity edema right hip pain sacroiliitis elevated cholesterol chronic regional pain syndrome right kayli t hematuria osteoporosis Hyperlipidemia Surgical History Surgery Date(Month/Year) pilonidal cyst repair cholecystectomy appendectomy foot surgery-right cortizone injection treatments in spine and foot
--- NOTE | 2024-01-30 14:41 | HO.ANESPROP2 ---
HPI - Anesthesia Eval Consult details Narrative: for cysto, bladder bx PMFSH Active Problems Active Problems: All Active Problems Abnormal urine cytology (Acute) Marijuana smoker (Acute) Proteinuria (Acute) Microscopic hematuria (Acute) Elevated liver enzymes (Acute) Fracture of greater tuberosity of left humerus (Acute) Left shoulder pain (Acute) Injury of shoulder, left (Acute) Osteoporosis (Acute) Physical exam (Acute) Screening for colon cancer (Acute) Postmenopausal (Acute) Elevated fasting blood sugar (Acute) Dyslipidemia (Acute) Tick bite (Acute) Arthralgia (Acute) Right foot pain (Acute) Systolic murmur (Acute) HTN (hypertension) (Acute) De Quervain's tenosynovitis, left (Acute) Other bursal cyst, left wrist (Acute) Restless leg syndrome (Acute) Past Medical History Medical History Heart murmur Hyperlipidemia Hematuria Elevated cholesterol Sacroiliitis Right hip pain Lower extremity edema Lumbar radiculopathy Anxiety disorder Restless leg syndrome Nerve root compression Chronic foot pain Sleep apnea Depression Family History Family History Father No problems noted. Mother CVD (cardiovascular disease) S/P triple vessel bypass Myocardial infarct Family history of problems with anesthesia: No Surgical History Surgical History History of excision of pilonidal cyst Hx of foot surgery Hx of appendectomy Hx of cholecystectomy History of colonoscopy History of microdiscectomy H/O synovectomy History of Problems with Anesthesia: No Social History Social History Housing: House Alcohol intake: never Patient Tobacco Use Status: Former Tobacco user Tobacco use type: Cigarette e-Cigarette/Vaping Use: Never Used Second Hand Smoke Exposure: No Use of substances other than those prescribed or required for medical reasons: Yes Substance Use Frequency: Daily Are you DNR?: No Advance Directives: No Advance Directives Information Provided: Yes Current occupational status: unemployed Current occupation: right handed Cognitive needs: No Hearing needs: No Vision needs: No Meds Allergies Allergy/AdvReac Type Severity Reaction Status Date / Time gabapentin [GABAPENTIN] Allergy Unknown VOMITING Verified 01/30/24 12:33 levofloxacin [From LEVAQUIN] Allergy Unknown VOMITING/FE Verified 01/30/24 12:33 MALI pregabalin AdvReac Unknown loss of Verified 01/30/24 12:33 memory Mirtazapine AdvReac Unknown feels Uncoded 01/30/24 12:33 horrible Home Medications ?Medication ?Instructions ?Recorded ?Confirmed ?Last Taken ?Type alprazolam 1 mg tablet 1 mg PO BID PRN anxiety 04/22/20 01/30/24 Unknown History citalopram 20 mg tablet 30 mg PO QAM 04/22/20 01/30/24 Unknown History clonazepam 1 mg tablet 2 mg PO BEDTIME RX from psych 10/03/22 01/30/24 Unknown History provider Exam Height,Weight and Vital Signs: Height 5 ft 3 in Weight 79.832 kg Last Vital Signs Temp 98.7 F 01/30/24 12:50 Pulse 62 01/30/24 12:50 Resp 16 01/30/24 12:50 BP 144/58 H 01/30/24 12:50 Pulse Ox 97 01/30/24 12:50 O2 Del Method Room Air 01/30/24 12:50 Airway Mallampati Class: II TM Dist: <=3cm Neck ROM: Full Loose/Missing/Broken Teeth: Yes and Upper Heart: ok Lungs: ok Assessment and Plan Assessment Anesthesia Assessment: Anesthesia Plan Discussed and Chart Reviewed Final Anesthetic Review Family History of Problems with Anesthesia: No History of Problems with Anesthesia: No NPO: Yes ASA Class: III Final Preanesthetic Review: No Changes in Pt Med Stat, Meds/Allgs Chart Reviewed, Consent Obtained/Reviewed and Anes Risks/Benef Reviewed Patient Risk: Intermediate Procedure Risk: Low Anesthetic Plan Anesthetic Plan: GA and Agree w/ Assess. and Plan Disposition: Standard PACU
--- NOTE | 2024-01-30 14:42 | MHC.SHP ---
Pre-Procedural Eval Section A - 24 Hr Update-Section A only Date of Service: 01/30/24 The patient is an INPATIENT: No The patient has been examined within 24 hours of the surgical procedure. The History & Physical has been completed within 30 days and I have reviewed it.: Yes Section B - Complete if H&P > 30 days Chief Complaint: Other abnormal findings on cytological and histolo Allergies: Allergies Allergy/AdvReac Type Severity Reaction Status Date / Time gabapentin [GABAPENTIN] Allergy Unknown VOMITING Verified 01/30/24 12:33 levofloxacin [From LEVAQUIN] Allergy Unknown VOMITING/FE Verified 01/30/24 12:33 MALI pregabalin AdvReac Unknown loss of Verified 01/30/24 12:33 memory Mirtazapine AdvReac Unknown feels Uncoded 01/30/24 12:33 horrible Plan Diagnosis/Plan: Unchanged I have reviewed the history and physical and performed a pertinent physical examination on my patient. No changes have occurred unless specified. Cystoscopy. Bladder biopsy, bilateral retrogrades. Discussed risks to include but not limited to, blood in the urine, burning with urination, urgency. Time Spent With Patient Time: Total time managing care of this patient today ____ minutes.
--- NOTE | 2024-01-30 15:36 | P.OP_ITS ---
Operative Note Operative Note Date of Service: 01/30/24 Narrative: PreOperative Diagnosis:?? Microscopic hematuria, atypical cytology Post Operative Diagnosis:?? ?Microscopic hematuria, atypical cytology Procedure: Cystoscopy, bilateral retrogrades bladder biopsies, fulguration Surgeon:?Dr Titi Abdul Anesthesia:? General Procedure: After informed consent was verified the patient was brought to the operating placed on the OR table in supine position.? General Anesthesia was administered per protocol.? The patient was placed in lithotomy position, prepped and draped in the usual sterile fashion.? Safety pause time-out and side of surgery confirmed.? Antibiotics confirmed. A 22 Luxembourgish cystoscope was inserted transurethrally, The bladder was visualized.? Both ureteric orifices were in normal position. There were no suspicious bladder lesions visualized. The? ureteric orifices were along the trigone in normal position. Retrogrades were performed starting on the right side. There were no filling defects in the ureter or renal pelvis. Left retrograde was done in similar fashion was within normal limits. Random bladder biopsies were done from the posterior wall, right lateral wall, left lateral wall and dome. The Bugbee electrode was used to cauterize and fulgurate base of the biopsied areas. Once there was good hemostasis this ended the procedure. The bladder was emptied.? The rigid cystoscope was removed. ? The patient tolerated the procedure well and was brought to the recovery room in stable condition. Complications: None Drains: None.
[2024-01-30] MEDS: Phenazopyridine HCL 200 MG TABLET PO (15:44)
[2024-01-30] MEDS: oxyCODONE HCl Immed Release 5 MG TABLET PO (16:09)
== END 2024-01-30 16:43 | disposition home or self-care (01) ==
PROVIDERS: PCP Nurse Practitioner Family; Visit Provider Urology
PROC: 0TJB8ZZ Inspection of Bladder, Via Natural or Artificial Opening Endoscopic (ICD-10-PCS; CPT 52005; principal; 2024-01-30 13:50)
DX: R82.89 Other abnormal findings on cytological and histological examination of urine (principal); R31.29 Other microscopic hematuria; R80.9 Proteinuria, unspecified; Z80.52 Family history of malignant neoplasm of bladder; E78.00 Pure hypercholesterolemia, unspecified; F32.A Depression, unspecified; M54.16 Radiculopathy, lumbar region; R60.0 Localized edema; G47.30 Sleep apnea, unspecified; F41.9 Anxiety disorder, unspecified; Z88.1 Allergy status to other antibiotic agents; Z88.8 Allergy status to other drugs, medicaments and biological substances; Z98.890 Other specified postprocedural states; Z87.891 Personal history of nicotine dependence; Z56.0 Unemployment, unspecified
CPT/HCPCS: 52204; 52005; 88305; C1758; J0690; J2704; J3010; Q9967

== ENCOUNTER → 2024-01-30 11:59 | Outpatient (BNV) | payer MEDICARE, MEDICAID, SELFPAY | PROVIDERS: PCP Nurse Practitioner Family; Visit Provider Urology | DX: R82.89 Other abnormal findings on cytological and histological examination of urine (principal) | CPT/HCPCS: 52204; 74420 ==

== ENCOUNTER 2024-02-23 09:30 | Outpatient (AMB) | payer MEDICARE, MEDICAID, SELFPAY ==
--- NOTE | 2024-02-23 08:30 | A.OFFVIS_ITS ---
Intake Visit Reasons: Bladder biopsy- follow up Intake Note: Patient is present for bladder biopsy f/u Urology Medication:macrobid, pyridium, oxycodone Antibiotic Allergy:gabapentin, levofloxzcin Blood Thinner:none Allergies gabapentin [GABAPENTIN] Allergy (Unknown, Verified 02/23/24 08:32) VOMITING levofloxacin [From LEVAQUIN] Allergy (Unknown, Verified 02/23/24 08:32) VOMITING/FEVER pregabalin Adverse Reaction (Unknown, Verified 02/23/24 08:32) loss of memory Mirtazapine Adverse Reaction (Unknown, Uncoded 02/23/24 08:32) feels horrible Medication List - Last Reconciled 02/23/24 by Titi Abdul MD alprazolam 1 mg PO BID PRN calcium carbonate-vitamin D3 600 mg-12.5 mcg (500 unit) (Calcium 600 with Vitamin D3) 1 cap PO DAILY citalopram 30 mg PO QAM clonazepam 2 mg PO BEDTIME hydrochlorothiazide 25 mg PO DAILY 90 days hydroxyzine pamoate (Vistaril) 25 mg PO BEDTIME nitrofurantoin monohyd/m-cryst 100 mg (Macrobid) 100 mg PO BID 7 days oxycodone 5 mg PO .[id number] PRN phenazopyridine (Pyridium) 200 mg PO TID PRN pramipexole 0.75 mg PO BEDTIME 90 days rosuvastatin 10 mg PO DAILY 30 days zolpidem 10 mg PO BEDTIME PRN 30 days HPI Comments Details: 02/23/2024--Erika was initially evaluated on 12/15/2023 for microscopic hematuria. Urine cytology came back as atypical cytology. She is status post bladder biopsies, 01/30/2024-pathology benign. The patient complains of nocturia and bladder pressure. We will trial hydroxyzine. Review of chart: 01/26/24--Erika is here for office cystoscopy. She states that her brother is being treated for bladder cancer and that cancer runs in her family, including bone cancer and skin cancer. I have reviewed CT urogram, urinary tract was within normal limits. Urine cytology x2 noted atypical cells. Cystoscopy findings: No intrinsic lesions visualized. Prominent vasculature; Very mild erythematous changes- nonspecific. I have discussed further evaluation with cystoscopy bladder biopsies, bilateral retrogrades and will repeat urine cytology. 12/15/23--Erika is a very pleasant 63-year-old female patient of Dr. Suggs who was accompanied by her daughter at today's office visit. She has a past medical history of heart murmur, hyperlipidemia, hypercholesteremia, anxiety, lumbar radiculopathy, restless leg syndrome, nerve root compression, sleep apnea, and depression. She presents to the office today as a new patient for microscopic hematuria. In discussion with the patient today she discusses having had a previous microscopic hematuria workup in the past and was told microscopic hematuria was related to possible vaginal changes and cystoscopy noted no abnormalities. She reports having followed up with her PCP and microscopic hematuria was noted at which time a CT urogram was ordered and recommendations were made for urology referral for further assessment evaluation. These results were reviewed with the patient today. No nephrolithiasis. Nephrograms are symmetrical. No suspicious renal mass. Tiny cortical hypodensities most likely cyst that require no imaging follow-up per radiology report. Urinary excretion of contrast is symmetric. No hydroureteronephrosis. No filling defects in the collecting systems or ureters. No discrete bladder mass. The bladder wall appears mildly trabeculated. When asked she does report a previous history of chemical exposure in the [place] as well as smoking medical marijuana daily. She otherwise denies any bothersome urinary issues. She denies urinary urgency, urinary frequency, incontinence, nocturia, dysuria, foul smelling urine, changes to urinary stream, flank pain, fever, and or chills. She is happy with her current voiding parameters. I discussed reasons for blood in the urine may include but are not limited to kidney stones, cancer in the urinary tract, kidney stone disease or inflammatory conditions of the urinary tract. I have discussed workup to include cystoscopy evaluation. Urine cytology reviewed 11/05 Rare atypical urothelial cells present. She otherwise offers no other issues or concerns at this time. [facility] Medical History Heart murmur Hyperlipidemia Hematuria Elevated cholesterol Sacroiliitis Right hip pain Lower extremity edema Lumbar radiculopathy Anxiety disorder Restless leg syndrome Nerve root compression Chronic foot pain Sleep apnea Depression Surgical History History of excision of pilonidal cyst Hx of foot surgery Hx of appendectomy Hx of cholecystectomy History of colonoscopy History of microdiscectomy H/O synovectomy Family History Father No problems noted. Mother CVD (cardiovascular disease) S/P triple vessel bypass Myocardial infarct Social History Housing: House Alcohol intake: never Patient Tobacco Use Status: Former Tobacco user Tobacco use type: Cigarette e-Cigarette/Vaping Use: Never Used Second Hand Smoke Exposure: No Current occupational status: unemployed Current occupation: right handed Cognitive needs: No Hearing needs: No Vision needs: No Review of Systems Const All systems reviewed & are unremarkable except as noted in HPI and below Reports no additional complaints Eyes Reports no additional complaints ENT Reports no additional complaints Card Reports no additional complaints Resp Reports no additional complaints GI Reports no additional complaints Reports as per HPI Musc Reports no additional complaints Skin/Breast Reports system reviewed and no additional complaints, except as documented Neuro Reports no additional complaints Psych Reports no additional complaints Endo Reports no additional complaints Anup/Lymph Reports no additional complaints Aller/Immun Reports no additional complaints Telehealth Telehealth Telehealth Platform: [facility] Location of provider rendering services: practice address Location of patient: address on file Patient Identification confirmed using: Name, : Yes Telehealth method: voice only Patient verbally consented to treatment: Yes Patient verbally consented to billing insurance company: Yes Patient informed of any privacy concerns related to visit: Yes Minutes spent on Phone/Video with Pt.: 18 Results Reviewed Results Reviewed: Collected: 01/30/24 Location: [facility] Received: 01/31/24 Diagnosis A. Bladder, posterior wall, biopsy: Partially denuded benign urothelial mucosa; muscularis propria present. B. Bladder, right lateral wall, biopsy: Benign urothelium; no muscularis propria present. C. Bladder, left lateral wall, biopsy: Benign urothelium; muscularis propria present. D. Bladder, dome, biopsy: Benign urothelium; muscularis propria present. Comment: No evidence of malignancy. Clinical History Other abnormal findings on cytological and microscopic hematuria Microscopic Description Microscopic sections reviewed. Material Received A. Posterior bladder wall B. Right lateral bladder wall C. Left lateral bladder wall D. Dome Date of Service: 11/30/23 EXAMINATION: CT ABDOMEN AND PELVIS WITHOUT AND WITH CONTRAST FINDINGS: LUNG BASES: Scarring at the lung bases. LIVER, GALLBLADDER, AND BILIARY TREE: The liver is normal in size, shape, and attenuation. No focal hepatic mass. There is mild biliary ductal dilatation in the setting of cholecystectomy which is consistent with reservoir effect. PANCREAS: No discrete pancreatic mass or pancreatic ductal dilatation. SPLEEN: Unremarkable. ADRENAL GLANDS: Coarse calcifications in the left adrenal gland may relate to prior infection or hemorrhage. This is unchanged compared to prior CT: Mammography. KIDNEYS AND URETERS: No nephrolithiasis. Nephrograms are symmetric. No suspicious renal mass. Tiny cortical hypodensities lower pole right kidney and mid pole right kidney are too small to characterize, but most likely cysts. No imaging follow-up is recommended. Urinary excretion of contrast is symmetric. No hydroureteronephrosis. No filling defects in the collecting systems or ureters. BLADDER: No discrete bladder mass. The bladder wall appears mildly trabeculated. GASTROINTESTINAL TRACT: Small hiatal hernia. Small and large bowel are normal in caliber. ABDOMINAL WALL: No significant hernia is appreciated. LYMPH NODES: No pathologically enlarged lymph nodes VASCULAR: No aortic aneurysm. Minimal atherosclerotic disease. PELVIC VISCERA: Unremarkable. OSSEUS STRUCTURES: Mild degenerative changes in the spine. IMPRESSION: No explanation for hematuria. Mildly trabeculated bladder wall without discrete bladder mass. Urine Cytology--Collected: 08/02/24 Location: .LAB Received: 12/18/23 Diagnosis Urine: Rare atypical urothelial cells. COMMENT: Examination of a monolayer preparation slide shows many benign squamous cells, scattered benign urothelial cells with focal reactive changes, and rare urothelial cells with mild increased nuclear:cytoplasmic ratios meeting the criteria for atypia. There are also occasional read blood cells and inflammatory cells. Clinical History Microscopic hematuria Material Received Urine Gross Description Received is 52 cc of cloudy orange fluid from which a ThinPrep slide is prepared. Assessment & Plan Assessment & Plan (1) Microscopic hematuria: Code(s): R31.29 - Other microscopic hematuria Category: Medical (2) Abnormal urine cytology: Comment: status post bladder biopsies, 01/30/2024-pathology benign. Code(s): R82.89 - Other abnormal findings on cytological and histological examination of urine Category: Medical (3) Urinary frequency: Code(s): R35.0 - Frequency of micturition Category: Medical (4) Sensation of pressure in bladder area: Code(s): R39.89 - Other symptoms and signs involving the genitourinary system Category: Medical Plan status post bladder biopsies, 01/30/2024-pathology benign. The patient complains of nocturia and bladder pressure. We will trial hydroxyzine. repeat office cysto in 6 months, renal US in 6 months Medications: New hydroxyzine pamoate (Vistaril) one to 2 at bedtime as directed by 25 mg PO BEDTIME 60 caps 4RF for bladder Patient Instructions: The patient had an opportunity to ask questions regarding treatment plan. The patient expressed understanding and agreement with the above treatment plan. The patient is aware they should contact our office by phone for worsening of their current condition or the appearance of new symptoms. Compliance is encouraged with any medications and followup testing that is ordered. It is a privilege to be allowed the opportunity to participate in the urologic care of your patient. If you have any questions or concerns regarding treatment for the above conditions please do not hesitate to contact me. The office telephone contact is [phone]. This note is constructed in part using voice recognition software. While every effort has been made to ensure accuracy computer help desk specialist errors may have been included. Yours sincerely, Titi Abdul MD Coding Level of Care Code Tele Est Pt Level 4 (62832) Diagnoses Microscopic hematuria R31.29 Abnormal urine cytology R82.89 Urinary frequency R35.0 Sensation of pressure in bladder area R39.89
--- OUTSIDE RECORDS SUMMARY | 2024-02-23 09:31 | XMS_ITS ---
Author Organization [facility] Address [address] [place] [address] Care Team Providers Care Nut Processing Supervisor Name Role Phone DMITRIY ELIZONDO Primary Care Provider Jean Clarke Jr REASON FOR VISIT pathology Encounters Encounter Location Date Provider Diagnosis [facility] [address] [place] [address] 09/07/2023 Jean Mcneill Jr PLAN OF TREATMENT No Information
--- OUTSIDE RECORDS SUMMARY | 2024-02-23 09:32 | XMS_ITS ---
Author Organization [facility] Address [address] [place] [address] Care Team Providers Care Fish Skinning Machine Feeder Name Role Phone DMITRIY ELIZONDO Primary Care Provider Jean Clarke Jr Unavailable [phone] REASON FOR VISIT screening Encounters Encounter Location Date Provider Diagnosis [facility] Outpatient [address] [place] [id number] 08/22/2023 Jean Mcneill Jr Encounter for screening colonoscopy Z12.11 and Colon polyps K63.5 ASSESSMENTS Encounter Date Diagnosis Assessment Notes Treatment Notes Treatment Clinical Notes 08/22/2023 Encounter for screening colonoscopy (ICD-10 - Z12.11) 08/22/2023 Colon polyps (ICD-10 - K63.5) PLAN OF TREATMENT No Information
--- OUTSIDE RECORDS SUMMARY | 2024-02-23 09:32 | XMS_ITS | Patient Health Record ---
Author Organization [facility] Address [address] [place] [address] Care Team Providers Care Client Evaluator Name Role Phone DMITRIY ELIZONDO Primary Care Provider Jean Clarke Jr Unavailable ALLERGIES Allergen (clinical drug ingredient) Drug/Non Drug Allergy documented on EMR Reaction Allergy Type Onset Date Status pregabalin Lyrica Unknown Drug Allergy Active Levaquin Unknown Drug Allergy Active gabapentin Gabapentin Unknown Drug Allergy Activ e RESULTS Component Value Reference Range Notes Pathology Reviewed date:09/07/2023 09:21:02 AM Interpretation: Performing Lab:[facility], [address] [place] [id number] Notes/Report: REASON FOR REFERRAL No Information MEDICATIONS [...] day 07/17/2023 Active Vitamin D3 1.25 MG (62587 UT) TAKE 1 CAPSULE BY MOUTH 1 [...] Problem Colon cancer screening (Z12.11) Active confirmed 969829996 Problem Encounter for other preprocedural examination (Z01.818) Active confirmed [id number] Problem [facility] 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 (Z79.899) Active confirmed [id number] VITAL SIGNS Temperature 94.4 degrees Fahrenheit 07/13/2023 Blood pressure diastolic 00 mm Hg 07/13/2023 Height 63 in 07/13/2023 Blood pressure systolic 00 mm Hg 07/13/2023 Weight 178 lbs 07/13/2023 BMI 31.53 kg/m2 07/13/2023 Encounters Encounter Location Date Provider Diagnosis [facility] [address] [place] [phone] 08/22/2023 Jean Mcneill Jr Encounter for screening colonoscopy Z12.11 and Colon polyps K63.5 [facility] [address] [place] [phone] 07/13/2023 Jean Mcneill Jr Colon cancer screening Z12.11 and [facility] 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 Z79.899 [facility] [address] [place] [phone] 07/13/2023 Jean Mcneill Jr [facility] [address] [place] [phone] 07/20/2023 Jean Mcneill Jr [facility] [address] [place] [address] 09/07/2023 Jean Mcneill Jr ASSESSMENTS Encounter Date Diagnosis Assessment Notes Treatment Notes Treatment Clinical Notes 08/22/2023 Encounter for screening colonoscopy (ICD-10 - Z12.11) 08/22/2023 Colon polyps (ICD-10 - K63.5) 07/13/2023 Colon cancer screening (ICD-10 - Z12.11) 07/13/2023 [facility] 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 (ICD-10 - Z79.899) PLAN OF TREATMENT Pending Test Test Name Order Date COLONOSCOPY WITH BIOPSY 02/02/2011 Future Test Test Name Order Date COLONOSCOPY 05/25/2016 COLONOSCOPY 07/13/2023 Insurance Providers Payer Name Payer Address Payer Phone Subscriber Number Group Number Insured Name Patient Relationship to Insured Coverage Start Date Coverage End Date MEDICARE OF [place] [address] [place] [address] [id number] KIMBERLY CASTANEDA Self - patient is the insured MEDICAID OF [facility] [address] [place] [address] [id number] KIMBERLY CASTANEDA Self - patient is the [...]
--- OUTSIDE RECORDS SUMMARY | 2024-02-23 09:32 | XMS_ITS ---
Author Organization [facility] Address [address] [place] [address] Care Team Providers Care Carton Filler Name Role Phone DMITRIY ELIZONDO Primary Care Provider Jean Clarke Jr REASON FOR VISIT please lock 07-13-2023 office note Encounters Encounter Location Date Provider Diagnosis [facility] [address] [place] [address] 07/20/2023 Jean Mcneill Jr PLAN OF TREATMENT No Information
== END 2024-02-23 16:30 | disposition home or self-care (01) ==
LOC: HO.HUSH 09:30
PROVIDERS: PCP Nurse Practitioner Family; Visit Provider Urology
DX: R31.29 Other microscopic hematuria (principal); R82.89 Other abnormal findings on cytological and histological examination of urine; R35.0 Frequency of micturition; R39.89 Other symptoms and signs involving the genitourinary system
CPT/HCPCS: 99442

== ENCOUNTER → 2024-02-23 09:30 | Outpatient (BNVA) | payer MEDICARE, MEDICAID, SELFPAY | PROVIDERS: PCP Nurse Practitioner Family; Visit Provider Urology ==

== ENCOUNTER 2024-04-25 10:30 | Outpatient (AMB) | payer MEDICARE, MEDICAID, SELFPAY ==
--- OUTSIDE RECORDS SUMMARY | 2024-04-25 10:36 | XMS_ITS ---
Author Organization [facility] Address [address] [place] [address] Care Team Providers Care Registered Dental Assistant Name Role Phone DMITRIY ELIZONDO Primary Care Provider Jean Clarke Jr [phone] REASON FOR VISIT screening Encounters Encounter Location Date Provider Diagnosis [facility] Outpatient [address] [place] [phone] 08/22/2023 Jean Mcneill Jr Encounter for screening colonoscopy Z12.11 and Colon polyps K63.5 ASSESSMENTS Encounter Date Diagnosis Assessment Notes Treatment Notes Treatment Clinical Notes 08/22/2023 Encounter for screening colonoscopy (ICD-10 - Z12.11) 08/22/2023 Colon polyps (ICD-10 - K63.5) PLAN OF TREATMENT No Information
--- OUTSIDE RECORDS SUMMARY | 2024-04-25 10:36 | XMS_ITS ---
Author Organization [facility] Address [address] [place] [address] Care Team Providers Care Figure Skater Name Role Phone DMITRIY ELIZONDO Primary Care Provider Jean Clarke Jr [phone] REASON FOR VISIT pathology Encounters Encounter Location Date Provider Diagnosis [facility] [address] [place] [address] 09/07/2023 Jean Mcneill Jr PLAN OF TREATMENT No Information
--- OUTSIDE RECORDS SUMMARY | 2024-04-25 10:36 | XMS_ITS ---
Author Organization [facility] Address [address] [place] [phone] Care Team Providers Care Customer Support Associate Name Role Phone DMITRIY ELIZONDO Primary Care Provider Jean Clarke Jr REASON FOR VISIT please lock 07-13-2023 office note Encounters Encounter Location Date Provider Diagnosis [facility] [address] [place] [address] 07/20/2023 Jean Mcneill Jr PLAN OF TREATMENT No Information
--- OUTSIDE RECORDS SUMMARY | 2024-04-25 10:36 | XMS_ITS | Patient Health Record ---
Author Organization [facility] Address [address] [place] [address] Care Team Providers Care Informatica Mdm Architect Name Role Phone DMITRIY ELIZONDO Primary Care Provider Jean Clarke Jr Unavailable ALLERGIES Allergen (clinical drug ingredient) Drug/Non Drug Allergy documented on EMR Reaction Allergy Type Onset Date Status pregabalin Lyrica Unknown Drug Allergy Active Levaquin Unknown Drug Allergy Active gabapentin Gabapentin Unknown Drug Allergy Activ e RESULTS Component Value Reference Range Notes Pathology Reviewed date:09/07/2023 09:21:02 AM Interpretation: Performing Lab:[facility], [address] [place] [id number] Notes/Report: REASON FOR REFERRAL No Information MEDICATIONS [...] day 07/17/2023 Active Vitamin D3 1.25 MG (28811 UT) TAKE 1 CAPSULE BY MOUTH 1 [...] Problem Colon cancer screening (Z12.11) Active confirmed 592686988 Problem Encounter for other preprocedural examination (Z01.818) Active confirmed 86792545 Problem 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 (Z79.899) Active confirmed [id number] VITAL SIGNS Temperature 94.4 degrees Fahrenheit 07/13/2023 Blood pressure diastolic 00 mm Hg 07/13/2023 Height 63 in 07/13/2023 Blood pressure systolic 00 mm Hg 07/13/2023 Weight 178 lbs 07/13/2023 BMI 31.53 kg/m2 07/13/2023 Encounters Encounter Location Date Provider Diagnosis [facility] Outpatient [address] [place] [phone] 08/22/2023 Jean Mcneill Jr Encounter for screening colonoscopy Z12.11 and Colon polyps K63.5 [facility] [address] [place] [phone] 07/13/2023 Jean Mcneill Jr Colon cancer screening Z12.11 and senior living 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 Z79.899 [facility] [address] [place] [phone] 07/13/2023 Jean Mcneill Jr [facility] [address] [place] [phone] 07/20/2023 Jean Mcneill Jr [facility] [address] [place] [address] 09/07/2023 Jean Mcneill Jr ASSESSMENTS Encounter Date Diagnosis Assessment Notes Treatment Notes Treatment Clinical Notes 08/22/2023 Encounter for screening colonoscopy (ICD-10 - Z12.11) 08/22/2023 Colon polyps (ICD-10 - K63.5) 07/13/2023 Colon cancer screening (ICD-10 - Z12.11) 07/13/2023 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 (ICD-10 - Z79.899) PLAN OF TREATMENT Pending Test Test Name Order Date COLONOSCOPY WITH BIOPSY 02/02/2011 Future Test Test Name Order Date COLONOSCOPY 05/25/2016 COLONOSCOPY 07/13/2023 Insurance Providers Payer Name Payer Address Payer Phone Subscriber Number Group Number Insured Name Patient Relationship to Insured Coverage Start Date Coverage End Date MEDICARE OF [place] [address] [place] [address] [id number] KIMBERLY CASTANEDA Self - patient is the insured MEDICAID OF [facility] [address] [place] [address] [id number] KIMBERLY CASTANEDA Self - patient is the [...]
[2024-04-25 10:46] VITALS: BP 132/80; PULSE 68; O2SAT 98; BMI 32.6
--- NOTE | 2024-04-25 10:46 | A.OFFPC_ITS ---
Vital Signs 04/25/24 10:46 Height 5 ft 3 in Weight 184 lb BMI 32.6 BP 132/80 Blood Pressure Location Lt brachial Position Sitting Pulse 68 Pulse Source Pulse Oximeter Pulse Oximetry (%) 98 Intake Visit Reasons: Annual PE Allergies gabapentin [GABAPENTIN] Allergy (Unknown, Verified 04/25/24 10:46) VOMITING levofloxacin [From LEVAQUIN] Allergy (Unknown, Verified 04/25/24 10:46) VOMITING/FEVER pregabalin Adverse Reaction (Unknown, Verified 04/25/24 10:46) loss of memory Mirtazapine Adverse Reaction (Unknown, Uncoded 02/23/24 08:32) feels horrible Tobacco use date assessed: 10/10/23 Dental Screening Dental Screen Date: 10/10/23 HPI Annual PE HPI Details History of Present Illness The patient is a 63-year-old female presenting with wellness concerns and follow-up for bladder atypia. She has a history of microhematuria, which led to scans revealing atypical cells. A biopsy was conducted and returned negative for cancer, yet atypical cells persist. Urological follow-up is set for April h monitoring every six months. Her mammography is overdue due to previous health concerns but plans to schedule it. A lesion on the left anterior is identified, referring to derm. Recent blood pressure readings show improvement, yet there are past concerns regarding elevated blood sugar. The patient reports irregular tobacco use through small cigars over the last few months, with a history of smoking cessation at age 27, resuming infrequently recently. Health Maintenance - Colonoscopy: Up-to-date - Mammogram: Overdue; patient plans to s chedule - Bone density screening: Up-to-date for the current year - Flu vaccine: Administered during visit - Tdap vaccine: Up-to-date until 2028 - RSV vaccine: Discussed, advised can be administered at pharmacy - Pneumonia vaccine: Administered during visit - Vitamin D level: Labs ordered as part of health maintenance Social History - Occasional use of small cigars, with a history of quitting smoking at age 27 - Family dynamics include a samm muniz, with concerns for her health during . Review of Systems - General: Denies significant changes in aging; reports feeling older inside. - Dermatological: Reports a lesion with slight pigmentation changes on the nose. - Psychological: Acknowledges family str ess related to daughter's complications. denies any si or hi denies any cp, sob Physical Exam General: Cooperative, healthy appearing, comfortable, no acute distress and well developed, obese Orientation: Patient oriented x3 Limitations: No limitations Head: Normal to inspection Ears: Hearing grossly normal bilaterally Nose: Left anterior nare with small scabbed lesion, dry, slightly raised, slightly darker pigmentation Face and sinus: Normal facial exam Eyes: Appearance normal, both eyes and all related structures Neck: Normal visual inspection and Yes full ROM Respiratory: Normal respiratory effort and able to speak in complete sentences. Clear to auscultation bilaterally Cardiovascular: Regular rate and rhythm. Normal S1 and S2 GI: Normal to inspection. Soft to palpation and nontender Skin: No rashes or lesions noted Neuro: Patient oriented x3 Extremities: Normal to inspection Results - Labs: Blood sugar recheck ordered with fasting instructions. Plan - Follow-up with urology scheduled for Candelario landaverde regarding bladder atypia. - Reassure patient on the benign nature of nasal lesion, with recommendation for dermatology consultation. - Advised on the completion of the mammo gram. - Discussed the benefits of annual influ annalee and pneumonia vaccinations. - Ordered blood sugar laboratory tests, recommending fasting overnight before testing. - Encouraged smoking cessation due to he alth risks, especially considering patient's age. Patient was informed and verbally consented to the use of an ambient scribe for clinic note documentation during this visit. Discussion Notes I discussed the negative cancer results for the micro hem, and the plan for continuance monitoring every six months. I reassured the patient that the nasal lesion should be checked by dermatology. We discussed the importance of keeping her mammogram current. I advised on staying up-to-date with flu and pneumonia vaccinations, considering age and smoking history. The lab tests for blood sugar were ordered, with instructions for fasting prior to testing. Risks of smoking were addressed, promoting cessation for health benefit. Patient Instructions - Schedule and complete overdue mammogra m. - Maintain appointments with urology fol low-up in April. - Observe fasting overnight for upcoming blood sugar test. - Consult with dermatology regarding the nasal lesion. - Consider discussing cessation support for occasional smoking. - Ensure continual update on immunizatio ns, especially with future relationship dynamics. - Seek flu and pneumonia vaccinations as discussed. [facility] Medical History Heart murmur Hyperlipidemia Hematuria Elevated cholesterol Sacroiliitis Right hip pain Lower extremity edema Lumbar radiculopathy Anxiety disorder Restless leg syndrome Nerve root compression Chronic foot pain Sleep apnea Depression Surgical History History of excision of pilonidal cyst Hx of foot surgery Hx of appendectomy Hx of cholecystectomy History of colonoscopy History of microdiscectomy H/O synovectomy Family History Father No problems noted. Mother CVD (cardiovascular disease) S/P triple vessel bypass Myocardial infarct Social History Housing: House Alcohol intake: never Patient Tobacco Use Status: Former Tobacco user Tobacco use type: Cigarette e-Cigarette/Vaping Use: Never Used Second Hand Smoke Exposure: No Current occupational status: unemployed Current occupation: right handed Cognitive needs: No Hearing needs: No Vision needs: No Questionnaire PHQ-9 Over the last 2 weeks, how often have you been bothered by any of the following problems? 1. Little interest or pleasure in doing things: more than half the days 2. Feeling down, depressed, or hopeless: several days 3. Trouble falling or staying asleep, or sleeping too much: more than half the days 4. Feeling tired or having little energy: more than half the days 5. Poor appetite or overeating: more than half the days 6. Feeling bad about yourself - or that you are a failure or have let yourself or your family down: more than half the days 7. Trouble concentrating on things, such as reading the newspaper or watching television: more than half the days 8. Moving or speaking so slowly that other people could have noticed. Or the opposite - being so fidgety or restless that you have been moving around a lot more than usual: more than half the days 9. Thoughts that you would be better off or of hurting yourself in some way: more than half the days Total score: 17 Depression Screening Interpretation: Positive (has both a psychiatrist and therapist, denies any si or hi) Depression Screening Follow-up: Existing condition and In treatment Depression Screening Done: Yes 73296 - PHQ-9 Billing: Yes Source: Developed by Guy Guardadoet B.W. Radames, Odin Brewster and colleagues, with an educational chris from [employer]. Thrive Questionnaire Date Thrive assessed: 04/25/24 I am a: Patient What is your living situation today?: I choose not to answer this question Within the past 12 months, did the food you bought not last and you didn't have the money to get more?: I choose not to answer this question Within the past 12 months, did you worry whether your food would run out before you got money to buy more?: I choose not to answer this question Do you have trouble paying for medicines?: I choose not to answer this question Do you have trouble getting transportation to medical appointments?: I choose not to answer this question Do you have trouble paying your heating and electricity bill?: I choose not to answer this question Do you have trouble taking care of your child, family member or friend?: I choose not to answer this question Do you have trouble with day-to-day activities such as bathing, preparing meals, shopping, managing finances, etc.?: I choose not to answer this question Are you currently unemployed and looking for a job?: I choose not to answer this question Are you interested in more education?: I choose not to answer this question Please select the resources that you would like help with: None Currently or been in a relationship where the following occur: I choose not to answer THRIVE Score: 0 AUDIT C Alcohol Use Questionnaire (AUDIT-C) 1. How often do you have a drink containing alcohol?: Monthly or less 2. How many drinks containing alcohol do you have on a typical day when you are drinking?: 1 or 2 3. How often do you have six or more drinks on one occasion?: Never Total Score: 1 Score Reviewed/Action Taken: Yes GERSON-7 AMB Questionnaire GERSON-7 Date GERSON - 7 assessed: 04/25/24 Feeling nervous, anxious, or on edge: 2 = More than half the days Not being able to stop or control worryin = More than half the days Worrying too much about different things: 2 = More than half the days Trouble relaxin = More than half the days Being so restless that it is hard to sit still: 2 = More than half the days Becoming easily annoyed or irritable: 2 = More than half the days Feeling afraid as if something awful might happen: 2 = More than half the days Total GERSON-7 score (0-4 normal; 5-9 mild; 10-14 moderate; 15-21 severe): 14 Source: Developed by Drs. Jackson Dorsey, Cha Crum, Odin Brewster and colleagues, with an educational chris from [employer]. GERSON-7 Assessment Billing GERSON-7 Assessment Tool: GERSON-7 Assessment 11406 (denies any si or hi, has a therapist and psychiatrist) Physical exam (Primary Care) Vital Signs: Last Vital Signs Pulse 68 04/25/24 10:46 BP 132/80 04/25/24 10:46 Pulse Ox 98 04/25/24 10:46 BMI result Body Mass Index 32.6 Tobacco/Smoking Status: Tobacco use Status Tobacco use date assessed 10/10/23 04/25/24 10:48 Patient Tobacco Use Status Former Tobacco user 04/25/24 10:48 Tobacco use type Cigarette 04/25/24 10:48 e-Cigarette/Vaping Use Never Used 04/25/24 10:48 PHQ-9: PHQ-9 Score PHQ-9: Total score 17 04/25/24 11:17 Depression Screening Interpretation: Positive (has both a psychiatrist and therapist, denies any si or hi) Depression Screening Follow-up: Existing condition and In treatment Thrive Assessment: Date of Thrive Assessment Date Thrive assessed 04/25/24 04/25/24 10:48 Currently or been in a relationship where the following occur: I choose not to answer Office Procedures Flu Questionnaire Does the patient have a severe egg allergy?: No Does the patient have severe life threatening allergies?: No Does the patient have a fever or illness today?: No Has the patient ever had Guillain-[place] Syndrome?: No Has the patient ever had any past reaction to a flu shot?: No Immunizations Fluarix Triv 9148-5715 (PF) 45 mcg (15 mcg x 3)/0.5 mL IM syringe Performing Provider: VANESA Chaudhary Performing Location: [facility] Administered by: Skip Christian CMA on 04/25/24 11:31 Dose Route Admin Location Dispensed Lot Number Expiration Date [facility] [employer] Salesperson 0.5 mL IM Right Deltoid 0.5 mL [id number] 11/11/24 [id number] [employer] VIS Given Date VIS Provided VIS Publication Date 04/25/24 Single Vaccine 20 Eligibility Eligibility Date Funding Source Not VF Eligible 04/25/24 Private pneumoc 20-sunil conj-dip cr(PF) 0.5 mL IM syringe Performing Provider: VANESA Chaudhary Performing Location: [facility] Administered by: Skip Christian CMA on 04/25/24 11:31 Dose Route Admin Location Dispensed Lot Number Expiration Date [employer] Salesperson 0.5 mL IM Left Deltoid 0.5 mL [id number] 09/01/25 [id number] [employer] VIS Given Date VIS Provided VIS Publication Date 04/25/24 Single Vaccine 21 Eligibility Eligibility Date Funding Source Not [facility] Eligible 04/25/24 Private Coding Level of Care Code Est Pt Prev Care 40-64y(79099) Diagnoses Physical exam Z00.00 Vitamin deficiency E56.9 Skin lesion L98.9 Additional Codes PHQ-9 - 46531 - PHQ-9 Billing: Yes ([id number]) GERSON-7 Assessment Billing - GERSON-7 Assessment Tool: GERSON-7 Assessment 44539 ([id number]) Assessment & Plan Assessment & Plan (1) Physical exam: Code(s): Z00.00 - Encounter for general adult medical examination without abnormal findings Category: Medical (2) Vitamin deficiency: Code(s): E56.9 - Vitamin deficiency, unspecified Category: Medical (3) Skin lesion: Code(s): L98.9 - Disorder of the skin and subcutaneous tissue, unspecified Category: Medical Plan . Orders: Orders Complete Blood Count Auto Diff Today Z00.00 - Encounter for general adult medical examination without abnormal findings TSH reflex Free T4 Today Z00.00 - Encounter for general adult medical examination without abnormal findings UA CC w/rflx Micro + Cult Today Z00.00 - Encounter for general adult medical examination without abnormal findings Lipid Panel Today Z00.00 - Encounter for general adult medical examination without abnormal findings Influenza 8848-0110 Immunization Today Z23 - Encounter for immunization Comprehensive [place]. Panel Fast Today Z00.00 - Encounter for general adult medical examination without abnormal findings Vitamin D 25-OH Total Today E56.9 - Vitamin deficiency, unspecified Pneumococcal 20 Immunization Today Z23 - Encounter for immunization Referrals Dermatology Referral L98.9 - Disorder of the skin and subcutaneous tissue, unspecified
== END 2024-04-25 11:39 | disposition home or self-care (01) ==
PROVIDERS: PCP Nurse Practitioner Family; Visit Provider Nurse Practitioner Family
DX: Z00.00 Encounter for general adult medical examination without abnormal findings (principal); E56.9 Vitamin deficiency, unspecified; L98.9 Disorder of the skin and subcutaneous tissue, unspecified; Z23 Encounter for immunization

== ENCOUNTER → 2024-04-25 10:30 | Outpatient (BNVA) | payer MEDICARE, MEDICAID, SELFPAY | PROVIDERS: PCP Nurse Practitioner Family; Visit Provider Nurse Practitioner Family | DX: Z00.00 Encounter for general adult medical examination without abnormal findings (principal); Z23 Encounter for immunization; E56.9 Vitamin deficiency, unspecified; L98.9 Disorder of the skin and subcutaneous tissue, unspecified | CPT/HCPCS: 90471; 90656; 90677; 96127; 99396 ==

== ENCOUNTER 2024-05-16 12:40 | Outpatient (REF) | payer MEDICARE, MEDICAID, SELFPAY ==
--- OUTSIDE RECORDS SUMMARY | 2024-05-16 13:39 | XMS_ITS ---
Author Organization [facility] Address [address] [place] [address] Care Team Providers Care Embroidery Machine Operator Name Role Phone DMITRIY ELIZONDO Primary Care Provider Jean Clarke Jr Unavailable [phone] REASON FOR VISIT screening Encounters Encounter Location Date Provider Diagnosis [facility] Outpatient [address] [place] [phone] 08/22/2023 Jean Mcneill Jr Encounter for screening colonoscopy Z12.11 and Colon polyps K63.5 ASSESSMENTS Encounter Date Diagnosis Assessment Notes Treatment Notes Treatment Clinical Notes 08/22/2023 Encounter for screening colonoscopy (ICD-10 - Z12.11) 08/22/2023 Colon polyps (ICD-10 - K63.5) PLAN OF TREATMENT No Information
--- OUTSIDE RECORDS SUMMARY | 2024-05-16 13:40 | XMS_ITS ---
Author Organization [facility] Address [address] [place] [phone] Care Team Providers Care Delimer Name Role Phone DMITRIY ELIZONDO Primary Care Provider Jean Clarke Jr REASON FOR VISIT please lock 07-13-2023 office note Encounters Encounter Location Date Provider Diagnosis [facility] [address] [place] [address] 07/20/2023 Jean Mcneill Jr PLAN OF TREATMENT No Information
--- OUTSIDE RECORDS SUMMARY | 2024-05-16 13:40 | XMS_ITS | Patient Health Record ---
Author Organization [facility] Address [address] [place] [address] Care Team Providers Care Beverage Steward Name Role Phone DMITRIY ELIZONDO Primary Care Provider Jean Clarke Jr Unavailable [phone] ALLERGIES Allergen (clinical drug ingredient) Drug/Non Drug Allergy documented on EMR Reaction Allergy Type Onset Date Status pregabalin Lyrica Unknown Drug Allergy Active Levaquin Unknown Drug Allergy Active gabapentin Gabapentin Unknown Drug Allergy Activ e RESULTS Component Value Reference Range Notes Pathology Reviewed date:09/07/2023 09:21:02 AM Interpretation: Performing Lab:[facility], [address] [place] [phone] Notes/Report: REASON FOR REFERRAL No Information MEDICATIONS [...] day 07/17/2023 Active Vitamin D3 1.25 MG (87719 UT) TAKE 1 CAPSULE BY MOUTH 1 [...] Problem Colon cancer screening (Z12.11) Active confirmed 475881603 Problem Encounter for other preprocedural examination (Z01.818) Active confirmed 00752134 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 (Z79.899) Active confirmed [id number] VITAL SIGNS Temperature 94.4 degrees Fahrenheit 07/13/2023 Blood pressure diastolic 00 mm Hg 07/13/2023 Height 63 in 07/13/2023 Blood pressure systolic 00 mm Hg 07/13/2023 Weight 178 lbs 07/13/2023 BMI 31.53 kg/m2 07/13/2023 Encounters Encounter Location Date Provider Diagnosis [facility] Outpatient [address] [place] [phone] 08/22/2023 Jean Mcneill Jr Encounter for screening colonoscopy Z12.11 and Colon polyps K63.5 [facility] [address] [place] [phone] 07/13/2023 Jean Mcneill Jr Colon cancer screening Z12.11 and care home 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 Z79.899 [facility] [address] [place] [phone] 07/13/2023 Jean Mcneill Jr [facility] [address] [place] [phone] 07/20/2023 Jean Mcneill Jr [facility] [address] [place] [address] 09/07/2023 Jean Mcneill Jr ASSESSMENTS Encounter Date Diagnosis Assessment Notes Treatment Notes Treatment Clinical Notes 08/22/2023 Encounter for screening colonoscopy (ICD-10 - Z12.11) 08/22/2023 Colon polyps (ICD-10 - K63.5) 07/13/2023 Colon cancer screening (ICD-10 - Z12.11) 07/13/2023 continuous churn buttermaker 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 (ICD-10 - Z79.899) PLAN OF TREATMENT Pending Test Test Name Order Date COLONOSCOPY WITH BIOPSY 02/02/2011 Future Test Test Name Order Date COLONOSCOPY 05/25/2016 COLONOSCOPY 07/13/2023 Insurance Providers Payer Name Payer Address Payer Phone Subscriber Number Group Number Insured Name Patient Relationship to Insured Coverage Start Date Coverage End Date MEDICARE OF [place] [address] [place] [address] [id number] KIMBERLY CASTANEDA Self - patient is the insured MEDICAID OF [facility] [address] [place] [phone] [id number] KIMBERLY CASTANEDA Self - patient is the [...]
[2024-05-16 15:58] LABS: MANUAL DIFF FLAG NO
[2024-05-16 16:02] LABS: Appearance Urine Clear; Color Urine Yellow; Glucose Urine UA Negative (Negative); Leukocyte Esterase Urine Negative (Negative); Nitrite Urine Negative (Negative); PH 5.5 (5.0-9.0); UMIC TRIGGER UACC YES; Urine Blood Trace (Negative); Urine Ketones Negative (Negative); Urine Protein Negative (Neg-Trace)
[2024-05-16 16:06] LABS: Bacteria Urine None Seen (None Seen); Hyaline Casts Urine 0-2 /LPF (0-2); RBC Urine 0-2 /HPF (0-2); Squamous Epithelial Cell Urine 0-2 /HPF (0-2); WBC Urine 0-5 /HPF (0-5)
[2024-05-16 16:11] LABS: Basophils Percent Auto 0.4 % (0-2); Eosinophils Absolute Auto 0.1 X10*3/uL (0.0-0.4); Eosinophils Percent Auto 1.2 % (0-4); Hematocrit 40.6 % (37.0-47.0); Hemoglobin 13.6 g/dl (12.0-16.0); Imm Gran Abs Auto 0.03 X10*3/uL (0.00-0.03); Imm Gran Pct Auto 0.4 % (0.0-0.4); Lymphocytes Absolute Auto 2.5 X10*3/uL (1.2-4.9); Lymphocytes Percent Auto 30.5 % (20-40); Mean Corpuscular HGB Conc 33.5 g/dl (31.0-35.0); Mean Corpuscular Hemoglobin 31.1 pg (27.0-33.0); Mean Corpuscular Volume 92.9 fL (80.0-98.0); Mean Platelet Volume 11.5 fL (9.4-12.3); Monocytes Absolute Auto 0.4 X10*3/uL (0.1-1.2); Monocytes Percent Auto 4.9 % (2-11); Neutrophils Absolute Auto 5.1 x10*3/uL (2.0-8.3); Neutrophils Percent Auto 62.6 % (45-73); Platelet Count 173 X10*3/uL (160-400); Red Blood Count 4.37 X10*6/uL (4.20-5.50); Red Cell Distribution Width 13.6 % (11.0-16.0); White Blood Count 8.2 X10*3/uL (4.8-10.8)
[2024-05-16 16:32] LABS: Alanine Aminotransferase 17 U/L (0-31); Anion Gap 12 (12-20); Aspartate Amino Transferase 21 U/L (5-31); Bilirubin Total 0.4 mg/dL (0.0-1.0); Blood Urea Nitrogen 14 mg/dL (9-16); Calcium 9.2 mg/dL (8.4-10.2); Carbon Dioxide 30 mmol/L (22-29); Chloride 105 mmol/L (96-108); Cholesterol 139 mg/dL (<200); Estimated Glomerular Filt Rate > 60; Glucose Fasting 105 mg/dL (60-99); HDL Cholesterol 54 mg/dL (>40); LDL Cholesterol Calculated 55 mg/dL (<100); Potassium 3.5 mmol/L (3.3-5.1); Sodium 143 mmol/L (135-145); Total Protein 6.8 g/dL (6.5-8.0); Triglycerides 150 mg/dL (<150)
[2024-05-16 16:49] LABS: Alkaline Phosphatase 65 U/L (39-117)
[2024-05-16 16:51] LABS: TSH reflex Free T4 0.89 uIU/mL (0.32-4.0); Vitamin D 25-OH Total 63.8 ng/mL (>30)
== END 2024-05-16 12:41 | disposition home or self-care (01) ==
LOC: HO.HMGCLDS 12:40
PROVIDERS: PCP Nurse Practitioner Family; Visit Provider Nurse Practitioner Family
DX: Z00.00 Encounter for general adult medical examination without abnormal findings (principal); E56.9 Vitamin deficiency, unspecified
CPT/HCPCS: 36415; 80053; 80061; 81001; 81003; 82306; 84443; 85025

== ENCOUNTER 2024-05-22 13:58 | Outpatient (REF) | payer MEDICARE, MEDICAID, SELFPAY ==
--- NOTE | ~2024-05-22 | US_ITS ---
EXAMINATION: US KIDNEY BILATERAL HISTORY: R31.29 - Other microscopic hematuria TECHNIQUE: Real-time grayscale ultrasound imaging of the kidneys was performed and images were reviewed. COMPARISON: Correlation is made with a CT urogram dated 11/30/2023. FINDINGS: Right kidney: The right kidney measures 10.6 x 4.3 x 5.8 cm. Renal parenchymal echotexture and thickness are normal. There are no masses. There is no hydronephrosis or renal calculi. Left Kidney: The left kidney measures 10.1 x 5.3 x 4.5 cm. Renal parenchymal echotexture and thickness are normal. There are no masses. There is no hydronephrosis or renal calculi. US/US renal BI IMPRESSION: Unremarkable renal ultrasound. Electronically signed by: Jackson Marino MD 05/24/2024 10:59 AM OLIVIA RP
--- OUTSIDE RECORDS SUMMARY | 2024-05-22 14:08 | XMS_ITS | Patient Health Record ---
Author Organization [facility] Address [address] [place] [address] Care Team Providers Care Tele Grout Sewer Line Repairer Name Role Phone DMITRIY ELIZONDO Primary Care Provider Jean Clarke Jr Unavailable ALLERGIES Allergen (clinical drug ingredient) Drug/Non Drug Allergy documented on EMR Reaction Allergy Type Onset Date Status pregabalin Lyrica Unknown Drug Allergy Active Levaquin Unknown Drug Allergy Active gabapentin Gabapentin Unknown Drug Allergy Activ e RESULTS Component Value Reference Range Notes Pathology Reviewed date:09/07/2023 09:21:02 AM Interpretation: Performing Lab:[facility], [address] [place] [id number] Notes/Report: REASON FOR REFERRAL No Information MEDICATIONS [...] day 07/17/2023 Active Vitamin D3 1.25 MG (83440 UT) TAKE 1 CAPSULE BY MOUTH 1 [...] Problem Colon cancer screening (Z12.11) Active confirmed 059554290 Problem Encounter for other preprocedural examination (Z01.818) Active confirmed 72809714 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 (Z79.899) Active confirmed [id number] VITAL SIGNS Temperature 94.4 degrees Fahrenheit 07/13/2023 Blood pressure diastolic 00 mm Hg 07/13/2023 Height 63 in 07/13/2023 Blood pressure systolic 00 mm Hg 07/13/2023 Weight 178 lbs 07/13/2023 BMI 31.53 kg/m2 07/13/2023 Encounters Encounter Location Date Provider Diagnosis [facility] [place] [address] [place] [id number] 08/22/2023 Jean Mcneill Jr Encounter for screening colonoscopy Z12.11 and Colon polyps K63.5 [facility] [address] [place] [phone] 07/13/2023 Jean Mcneill Jr Colon cancer screening Z12.11 and shelter 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 Z79.899 [facility] [address] [place] [phone] 07/13/2023 Jean Mcneill Jr [facility] [address] [place] [phone] 07/20/2023 Jean Mcneill Jr [facility] [address] [place] [address] 09/07/2023 Jean Mcneill Jr ASSESSMENTS Encounter Date Diagnosis Assessment Notes Treatment Notes Treatment Clinical Notes 08/22/2023 Encounter for screening colonoscopy (ICD-10 - Z12.11) 08/22/2023 Colon polyps (ICD-10 - K63.5) 07/13/2023 Colon cancer screening (ICD-10 - Z12.11) 07/13/2023 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 (ICD-10 - Z79.899) PLAN OF TREATMENT Pending Test Test Name Order Date COLONOSCOPY WITH BIOPSY 02/02/2011 Future Test Test Name Order Date COLONOSCOPY 05/25/2016 COLONOSCOPY 07/13/2023 Insurance Providers Payer Name Payer Address Payer Phone Subscriber Number Group Number Insured Name Patient Relationship to Insured Coverage Start Date Coverage End Date MEDICARE OF [place] [address] [place] [address] [id number] KIMBERLY CASTANEDA Self - patient is the insured MEDICAID OF [facility] [address] [place] [address] [phone] [id number] KIMBERLY CASTANEDA Self - patient is the [...]
--- OUTSIDE RECORDS SUMMARY | 2024-05-22 14:08 | XMS_ITS ---
Author Organization [facility] Address [address] [place] [address] Care Team Providers Care Field Organizer Name Role Phone DMITRIY ELIZONDO Primary Care Provider Jean Clarke Jr Unavailable REASON FOR VISIT screening Encounters Encounter Location Date Provider Diagnosis [facility] [place] [address] [place] [id number] 08/22/2023 Jean Mcneill Jr Encounter for screening colonoscopy Z12.11 and Colon polyps K63.5 ASSESSMENTS Encounter Date Diagnosis Assessment Notes Treatment Notes Treatment Clinical Notes 08/22/2023 Encounter for screening colonoscopy (ICD-10 - Z12.11) 08/22/2023 Colon polyps (ICD-10 - K63.5) PLAN OF TREATMENT No Information
--- OUTSIDE RECORDS SUMMARY | 2024-05-22 14:08 | XMS_ITS ---
Author Organization [facility] Address [address] [place] [address] Care Team Providers Care Ceramics Teacher Name Role Phone DMITRIY ELIZONDO Primary Care Provider Jean Clarke Jr REASON FOR VISIT please lock 07-13-2023 office note Encounters Encounter Location Date Provider Diagnosis [facility] [address] [place] [address] 07/20/2023 Jean Mcneill Jr PLAN OF TREATMENT No Information
--- OUTSIDE RECORDS SUMMARY | 2024-05-22 14:08 | XMS_ITS ---
Author Organization [facility] Address [address] [place] [address] Care Team Providers Care Bounty Hunter Name Role Phone DMITRIY ELIZONDO Primary Care Provider Jean Clarke Jr [phone] REASON FOR VISIT pathology Encounters Encounter Location Date Provider Diagnosis [facility] [address] [place] [address] 09/07/2023 Jean Mcneill Jr PLAN OF TREATMENT No Information
== END 2024-05-22 13:59 | disposition home or self-care (01) ==
LOC: HO.HMGCX 13:58
PROVIDERS: PCP Nurse Practitioner Family; Visit Provider Urology
DX: R31.29 Other microscopic hematuria (principal)
CPT/HCPCS: 76775

== ENCOUNTER → 2024-05-22 14:00 | Outpatient (BNV) | payer MEDICARE, MEDICAID, SELFPAY | PROVIDERS: PCP Nurse Practitioner Family; Visit Provider Radiology Diagnostic Radiology | DX: R31.29 Other microscopic hematuria (principal) | CPT/HCPCS: 76775 ==

== ENCOUNTER 2024-07-12 13:47 | Outpatient (AMB) | payer MEDICARE, MEDICAID, SELFPAY ==
--- NOTE | 2024-07-12 13:55 | MHC.OFFVIS ---
Intake Visit Reasons: US Results (Set) Intake Note: Patient is present for review [facility] Meds: hydroxyzine Antibiotic Allergies: levaquin Blood Thinners: none Information Technology Audit Manager Required: No Accompanied by: Self / Same As Patient Allergies gabapentin [GABAPENTIN] Allergy (Unknown, Verified 07/12/24 13:58) VOMITING levofloxacin [From LEVAQUIN] Allergy (Unknown, Verified 07/12/24 13:58) VOMITING/FEVER pregabalin Adverse Reaction (Unknown, Verified 07/12/24 13:58) loss of memory Mirtazapine Adverse Reaction (Unknown, Uncoded 07/12/24 13:58) feels horrible HPI Comments Details: 07/12/24-- 02/23/2024--Erika was initially evaluated on 12/15/2023 for microscopic hematuria. Urine cytology came back as atypical cytology. She is status post bladder biopsies, 01/30/2024-pathology benign. The patient complains of nocturia and bladder pressure. We will trial hydroxyzine. 01/26/24--Erika is here for office cystoscopy. She states that her brother is being treated for bladder cancer and that cancer runs in her family, including bone cancer and skin cancer. I have reviewed CT urogram, urinary tract was within normal limits. Urine cytology x2 noted atypical cells. Cystoscopy findings: No intrinsic lesions visualized. Prominent vasculature; Very mild erythematous changes- nonspecific. I have discussed further evaluation with cystoscopy bladder biopsies, bilateral retrogrades and will repeat urine cytology. 12/15/23--Erika is a very pleasant 63-year-old female patient of Dr. Suggs who was accompanied by her daughter at today's office visit. She has a past medical history of heart murmur, hyperlipidemia, hypercholesteremia, anxiety, lumbar radiculopathy, restless leg syndrome, nerve root compression, sleep apnea, and depression. She presents to the office today as a new patient for microscopic hematuria. In discussion with the patient today she discusses having had a previous microscopic hematuria workup in the past and was told microscopic hematuria was related to possible vaginal changes and cystoscopy noted no abnormalities. She reports having followed up with her PCP and microscopic hematuria was noted at which time a CT urogram was ordered and recommendations were made for urology referral for further assessment evaluation. These results were reviewed with the patient today. No nephrolithiasis. Nephrograms are symmetrical. No suspicious renal mass. Tiny cortical hypodensities most likely cyst that require no imaging follow-up per radiology report. Urinary excretion of contrast is symmetric. No hydroureteronephrosis. No filling defects in the collecting systems or ureters. No discrete bladder mass. The bladder wall appears mildly trabeculated. When asked she does report a previous history of chemical exposure in the [place] as well as smoking medical marijuana daily. She otherwise denies any bothersome urinary issues. She denies urinary urgency, urinary frequency, incontinence, nocturia, dysuria, foul smelling urine, changes to urinary stream, flank pain, fever, and or chills. She is happy with her current voiding parameters. I discussed reasons for blood in the urine may include but are not limited to kidney stones, cancer in the urinary tract, kidney stone disease or inflammatory conditions of the urinary tract. I have discussed workup to include cystoscopy evaluation. Urine cytology reviewed 11/05 Rare atypical urothelial cells present. She otherwise offers no other issues or concerns at this time. [facility] Medical History Heart murmur Hyperlipidemia Hematuria Elevated cholesterol Sacroiliitis Right hip pain Lower extremity edema Lumbar radiculopathy Anxiety disorder Restless leg syndrome Nerve root compression Chronic foot pain Sleep apnea Depression Surgical History History of excision of pilonidal cyst Hx of foot surgery Hx of appendectomy Hx of cholecystectomy History of colonoscopy History of microdiscectomy H/O synovectomy Family History Father No problems noted. Mother CVD (cardiovascular disease) S/P triple vessel bypass Myocardial infarct Social History Housing: House Alcohol intake: never Patient Tobacco Use Status: Former Tobacco user Tobacco use type: Cigarette e-Cigarette/Vaping Use: Never Used Second Hand Smoke Exposure: No Current occupational status: unemployed Current occupation: right handed Cognitive needs: No Hearing needs: No Vision needs: No Results Reviewed Results Reviewed: Date of Service: 05/22/24 Procedure(s): US renal BI EXAMINATION: US KIDNEY BILATERAL HISTORY: R31.29 - Other microscopic hematuria TECHNIQUE: Real-time grayscale ultrasound imaging of the kidneys was performed and images were reviewed. COMPARISON: Correlation is made with a CT urogram dated 11/30/2023. FINDINGS: Right kidney: The right kidney measures 10.6 x 4.3 x 5.8 cm. Renal parenchymal echotexture and thickness are normal. There are no masses. There is no hydronephrosis or renal calculi. Left Kidney: The left kidney measures 10.1 x 5.3 x 4.5 cm. Renal parenchymal echotexture and thickness are normal. There are no masses. There is no hydronephrosis or renal calculi. IMPRESSION: Unremarkable renal ultrasound. Collected: 01/30/24 Location: [facility] Received: 01/31/24 Diagnosis A. Bladder, posterior wall, biopsy: Partially denuded benign urothelial mucosa; muscularis propria present. B. Bladder, right lateral wall, biopsy: Benign urothelium; no muscularis propria present. C. Bladder, left lateral wall, biopsy: Benign urothelium; muscularis propria present. D. Bladder, dome, biopsy: Benign urothelium; muscularis propria present. Comment: No evidence of malignancy. Clinical History Other abnormal findings on cytological and microscopic hematuria Microscopic Description Microscopic sections reviewed. Material Received A. Posterior bladder wall B. Right lateral bladder wall C. Left lateral bladder wall D. Dome Date of Service: 11/30/23 EXAMINATION: CT ABDOMEN AND PELVIS WITHOUT AND WITH CONTRAST FINDINGS: LUNG BASES: Scarring at the lung bases. LIVER, GALLBLADDER, AND BILIARY TREE: The liver is normal in size, shape, and attenuation. No focal hepatic mass. There is mild biliary ductal dilatation in the setting of cholecystectomy which is consistent with reservoir effect. PANCREAS: No discrete pancreatic mass or pancreatic ductal dilatation. SPLEEN: Unremarkable. ADRENAL GLANDS: Coarse calcifications in the left adrenal gland may relate to prior infection or hemorrhage. This is unchanged compared to prior CT: Mammography. KIDNEYS AND URETERS: No nephrolithiasis. Nephrograms are symmetric. No suspicious renal mass. Tiny cortical hypodensities lower pole right kidney and mid pole right kidney are too small to characterize, but most likely cysts. No imaging follow-up is recommended. Urinary excretion of contrast is symmetric. No hydroureteronephrosis. No filling defects in the collecting systems or ureters. BLADDER: No discrete bladder mass. The bladder wall appears mildly trabeculated. GASTROINTESTINAL TRACT: Small hiatal hernia. Small and large bowel are normal in caliber. ABDOMINAL WALL: No significant hernia is appreciated. LYMPH NODES: No pathologically enlarged lymph nodes VASCULAR: No aortic aneurysm. Minimal atherosclerotic disease. PELVIC VISCERA: Unremarkable. OSSEUS STRUCTURES: Mild degenerative changes in the spine. IMPRESSION: No explanation for hematuria. Mildly trabeculated bladder wall without discrete bladder mass. Urine Cytology--Collected: 12/15/23 Location: [facility] Received: 12/18/23 Diagnosis Urine: Rare atypical urothelial cells. COMMENT: Examination of a monolayer preparation slide shows many benign squamous cells, scattered benign urothelial cells with focal reactive changes, and rare urothelial cells with mild increased nuclear:cytoplasmic ratios meeting the criteria for atypia. There are also occasional read blood cells and inflammatory cells. Clinical History Microscopic hematuria Material Received Urine Gross Description Received is 52 cc of cloudy orange fluid from which a ThinPrep slide is prepared. Coding
== END 2024-07-12 14:42 | disposition home or self-care (01) ==
PROVIDERS: PCP Nurse Practitioner Family; Visit Provider Urology
DX: R39.89 Other symptoms and signs involving the genitourinary system (principal)

== ENCOUNTER → 2024-07-12 13:47 | Outpatient (BNVA) | payer MEDICARE, MEDICAID, SELFPAY | PROVIDERS: PCP Nurse Practitioner Family; Visit Provider Urology | DX: R31.29 Other microscopic hematuria (principal); R82.89 Other abnormal findings on cytological and histological examination of urine; R35.0 Frequency of micturition; R39.89 Other symptoms and signs involving the genitourinary system; Z79.899 Other long term (current) drug therapy | CPT/HCPCS: 81003; 99212 ==

== ENCOUNTER 2024-11-19 09:52 | Outpatient (REF) | payer MEDICARE, MEDICAID, SELFPAY ==
--- OUTSIDE RECORDS SUMMARY | 2023-08-22 07:10 | XMS_ITS ---
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 Name Role Phone DMITRIY ELIZONDO Primary Care Provider Jean Clarke Jr REASON FOR VISIT screening Encounters Encounter Location Date Provider Diagnosis [facility] Outpatient [address] [place] [phone] 08/22/2023 Jean Mcneill Jr Encounter for screening colonoscopy Z12.11 and Colon polyps K63.5 Assessments Encounter Date Diagnosis (ICD Code) Assessment Notes Treatment Notes Treatment Clinical Notes Section Notes 08/22/2023 Encounter for screening colonoscopy (ICD-10 - Z12.11) 08/22/2023 Colon polyps (ICD-10 - K63.5) Plan Of Treatment No Information Progress Notes * KIMBERLY BLAKE ADOB:05/1960 (64 yo F)Acc No.[id number]:08/22/2023 COLON WITH MAC Patient: KIMBERLY COLEMAN Agusto Provider: Idania Mcneill MD :1960 A ge:63 Y S ex:Female Date:08/22/2023 Address:[address] [id number] Pcp:DMITRIY ELIZONDO Subjective: * Chief Complaints: * 1 . Screening. * Medical History: Objective: * Vitals: Assessment: * Assessment: 1. E ncounter for screening colonoscopy - Z12.11 (Primary) 2 . C olon polyps - K63.5 Plan: * Treatment: * Procedure Codes: G 0105 COLOREC CANCR SCR; COLNSCPY HI RISK, 60694 LESION REMOVAL COLONOSCOPY, 19578 COLONOSCOPY AND BIOPSY, Modifiers: 59 , 0529F INTRVL 3+YRS PTS CLNSCP DOCD * * The named appointment provid er may or may not be the originator of this progress note, and it is not deemed complete until electronically signed by the appointment provider. Sign off status: Pending * Provider: Idania Mcneill MD Date: 0 08/22/2023 Generated for Rehana ramirez/Jose/Kelvinsmitting on: 0 11/19/2024 10:31 AM EDT
--- OUTSIDE RECORDS SUMMARY | 2024-11-19 10:32 | XMS_ITS | Patient Health Record ---
Author Organization [facility] Address [address] [place] [address] Care Team Providers Care Wharfmaster Name Role Phone Hugo SWANSON, Asma Primary Care Provider Unavailabl e Black, Maureen Unavailable [phone] Allergies Allergen (clinical drug ingredient) Drug/Non Drug Allergy documented on EMR Reaction Allergy Type Onset Date Status ciprofloxacin Cipro vomit Drug Allergy Act belén gabapentin Gabapentin vomit Drug Allergy Activ e Reason For Referral No Information Medications Medication SIG (Take, Route, Frequency, Duration) Notes Start Date End Date Status clonazePAM Active Physical Therapy . . . 2-3x/week; Duration: 3-4 weeks 10/01/2014 Not-Taking Multivitamin Active Calcium + D Active Pramipexole Dihydrochloride Active buPROPion HCl Not-Ta lashell Niacin Active hydroCHLOROthiazide Active Problems No Known Problems Plan Of Treatment Pending Test Test Name Order Date X ray : Foot, left 3V 10/01/2014 X ray : Foot, right 3V 10/01/2014 Insurance Providers Payer Name Payer Address Payer Phone Subscriber Number Group Number Insured Name Patient Relationship to Insured Coverage Start Date Coverage End Date [facility] [address] [place] [address] [phone] [id number] [address] sanitagoYanicy Self - patient is the insured Medical (General) History Medical History History ICD Code High blood pressure Chicken pox Joint implants/screws Surgical History Surgery Date(Month/Year) cholecystectomy appendectomy hammer toe 08/06/12 bunionectomy 08/06/12 screw removal 05/22/13
[2024-11-19 11:03] LABS: MANUAL DIFF FLAG NO
[2024-11-19 11:09] LABS: Hematocrit 44.0 % (37.0-47.0); Hemoglobin 14.5 g/dl (12.0-16.0); Imm Gran Abs Auto 0.02 X10*3/uL (0.00-0.03); Imm Gran Pct Auto 0.3 % (0.0-0.4); Lymphocytes Absolute Auto 2.3 X10*3/uL (1.2-4.9); Mean Corpuscular HGB Conc 33.0 g/dl (31.0-35.0); Mean Corpuscular Hemoglobin 30.6 pg (27.0-33.0); Mean Corpuscular Volume 92.8 fL (80.0-98.0); NRBC Abs Auto 0.000 X10*3/uL (0.0-0.012); NRBC Pct Auto 0.0 /100WBC (0.0-0.2); Platelet Count 188 X10*3/uL (160-400); Red Blood Count 4.74 X10*6/uL (4.20-5.50); White Blood Count 6.9 X10*3/uL (4.8-10.8)
[2024-11-19 11:11] LABS: Appearance Urine Clear; Glucose Urine UA Negative (Negative); PH 7.5 (5.0-9.0); Specific Gravity - Urine 1.020 (1.005-1.025); UMIC TRIGGER UACC YES
[2024-11-19 11:57] LABS: Alanine Aminotransferase 31 U/L (0-31); Albumin Level 4.1 g/dL (3.5-5.0); Alkaline Phosphatase 70 U/L (39-117); Anion Gap 12 (12-20); Aspartate Amino Transferase 27 U/L (5-31); Blood Urea Nitrogen 18 mg/dL (9-16); Calcium 9.2 mg/dL (8.4-10.2); Carbon Dioxide 30 mmol/L (22-29); Chloride 106 mmol/L (96-108); Cholesterol 149 mg/dL (<200); Estimated Glomerular Filt Rate > 60; HDL Cholesterol 56 mg/dL (>40); Potassium 4.3 mmol/L (3.3-5.1); Sodium 144 mmol/L (135-145); Total Protein 6.6 g/dL (6.5-8.0); Triglycerides 165 mg/dL (<150)
[2024-11-19 13:11] LABS: Free T4 (Free Thyroxine) 0.84 ng/dL (0.71-1.85)
== END 2024-11-19 09:53 | disposition home or self-care (01) ==
LOC: HO.HMGCLDS 09:52
PROVIDERS: PCP Nurse Practitioner Family; Visit Provider Nurse Practitioner Family
DX: I10 Essential (primary) hypertension (principal); R82.89 Other abnormal findings on cytological and histological examination of urine; M81.0 Age-related osteoporosis without current pathological fracture
CPT/HCPCS: 36415; 80053; 80061; 81001; 82306; 84439; 84443; 85025; 87086; 88112

== ENCOUNTER 2024-11-20 13:06 | Outpatient (AMB) | payer MEDICARE, MEDICAID, SELFPAY ==
--- OUTSIDE RECORDS SUMMARY | 2023-08-22 07:10 | XMS_ITS ---
Author Organization [facility] Address [address] [place] [id number] Care Team Providers Care Manager Global Communications Name Role Phone DMITRIY ELIZONDO Primary Care Provider Jean Clarke Jr REASON FOR VISIT screening Encounters Encounter Location Date Provider Diagnosis [facility] Outpatient [address] [place] [id number] 08/22/2023 Jean Mcneill Jr Encounter for screening colonoscopy Z12.11 and Colon polyps K63.5 Assessments Encounter Date Diagnosis (ICD Code) Assessment Notes Treatment Notes Treatment Clinical Notes Section Notes 08/22/2023 Encounter for screening colonoscopy (ICD-10 - Z12.11) 08/22/2023 Colon polyps (ICD-10 - K63.5) Plan Of Treatment No Information Progress Notes * KIMBERLY BLAKE ADOB:05/1960 (64 yo F)Acc No.[id number]:08/22/2023 COLON WITH MAC Patient: KIMBERLY COLEMAN Agusto Provider: Idania Mcneill MD :1960 A ge:63 Y S ex:Female Date:08/22/2023 Address:[address] [place] [address] Pcp:DMITRIY ELIZONDO Subjective: * Chief Complaints: * 1 . Screening. * Medical History: Objective: * Vitals: Assessment: * Assessment: 1. E ncounter for screening colonoscopy - Z12.11 (Primary) 2 . C olon polyps - K63.5 Plan: * Treatment: * Procedure Codes: G 0105 COLOREC CANCR SCR; COLNSCPY HI RISK, 65053 LESION REMOVAL COLONOSCOPY, 47779 COLONOSCOPY AND BIOPSY, Modifiers: 59 , 0529F INTRVL 3+YRS PTS CLNSCP DOCD * * The named appointment provid er may or may not be the originator of this progress note, and it is not deemed complete until electronically signed by the appointment provider. Sign off status: Pending * Provider: Idania Mcneill MD Date: 0 08/22/2023 Generated for Rehana ramirez/Jose/Kellitting on: 0 11/20/2024 01:56 PM EDT
[2024-11-20 13:13] VITALS: BP 130/74; PULSE 68; O2SAT 97; BMI 32.6
--- NOTE | 2024-11-20 13:13 | A.OFFPC_ITS ---
Vital Signs 11/20/24 13:13 Height 5 ft 3 in Weight 184 lb 4 oz BMI 32.6 BP 130/74 Blood Pressure Location Lt brachial Position Sitting Pulse 68 Pulse Source Pulse Oximeter Pulse Oximetry (%) 97 Oxygen Delivery Method Room Air Intake Visit Reasons: 6 months f/up Roof Tiler Required: No Allergies gabapentin (GABAPENTIN) Allergy (Unknown, Verified 11/20/24 13:17) VOMITING levofloxacin (From LEVAQUIN) Allergy (Unknown, Verified 11/20/24 13:17) VOMITING/FEVER pregabalin Adverse Reaction (Unknown, Verified 11/20/24 13:17) loss of memory Mirtazapine Adverse Reaction (Unknown, Uncoded 07/12/24 13:58) feels horrible Medication List - Last Reconciled 11/20/24 by KIERA Chaudhary- alprazolam 1 mg PO BID PRN calcium carbonate 600 mg PO DAILY citalopram 30 mg PO QAM clonazepam 2 mg PO DAILY PRN hydrochlorothiazide 25 mg PO DAILY 90 days hydroxyzine pamoate (Vistaril) 25 mg PO BEDTIME pramipexole 0.75 mg PO BEDTIME 90 days rosuvastatin 10 mg PO DAILY 30 days varenicline tartrate (Chantix) 0.5 mg PO BID 30 days zolpidem 10 mg PO BEDTIME PRN 30 days Tobacco use date assessed: 11/20/24 Fall risk assessment: No Falls in past year Last assessed Fall Risk: 11/20/24 Dental Screening Dental Screen Date: 11/20/24 Did you have a dental visit in the last 12 months?: Yes Did you have a dental problem in the last 6 months where you did not have access to dental care?: No Was dental information given to patient?: Patient has dentist HPI 6 months f/up HPI Details Chief Complaint The patient is concerned about elevated blood sugar levels and has resumed smoking. History of Present Illness The patient is a 64-year-old female presenting with elevated fasting blood sugar and tobacco use disorder. She has been consuming soda regularly, which contributes to her elevated blood sugar levels. She has been advised to reduce intake of sugary beverages and to monitor her consumption of carbohydrates, particularly those that are white and fluffy, such as rice, pasta, and bread. The patient has resumed smoking in 2022 after many years of cessation and is currently smoking three-quarters of a pack per day. She has previously used C hantix successfully to quit smoking and is aware of its side effects, including suicidal ideation and vivid dreams. A starter pack of Chantix will be provided to her, with plans to continue if tolerated. Additionally, her thyroid function was noted to be abnormal, and a follow-up test is planned in two months to reassess her thyroid status. Social History - Tobacco use: Resumed smoking in 2022, currently smoking three-quarters of a pack per day. - Dietary habits: Regular consumption of soda and high-carbohydrate foods such as rice, pasta, and bread. Health Maintenance - Advised to reduce soda intake and tammie tor carbohydrate consumption to manage elevated blood sugar levels. - Smoking cessation plan initiated with Chantix, with awareness of potential side effects. - Thyroid function to be re-evaluated in two months. Review of Systems Physical Exam General: Cooperative, healthy appearing, comfortable, no acute distress and well developed Orientation: Patient oriented x3 Limitations: No limitations Head: Normal to inspection Ears: Hearing grossly normal bilaterally Nose: Normal external nose present Face and sinus: Normal facial exam Eyes: Appearance normal, both eyes and all related structures Neck: Normal visual inspection and Yes full ROM Respiratory: Normal respiratory effort and able to speak in complete sentences. Clear to auscultation bilaterally Cardiovascular: Regular rate and rhythm. Normal S1 and S2, no carotid bruits noted GI: Normal to inspection. Soft to palpation and nontender Skin: No rashes or lesions noted Neuro: Patient oriented x3 Extremities: Normal to inspection Results Plan The patient will be advised to significantly reduce her soda intake and monitor her carbohydrate consumption, focusing on avoiding foods that are high in simple sugars and refined carbohydrates. She will be restarted on Chantix to aid in smoking cessation, with a starter pack provided and plans to continue if she tolerates the medication well. The patient is aware of the potential side effects of Chantix, including suicidal ideation and vivid dreams, and will be monitored for these. Her thyroid function will be reassessed in two months to determine if further intervention is necessary. Discussion Notes I discussed with the patient the importance of reducing her soda intake and monitoring her carbohydrate consumption to manage her elevated blood sugar levels. We also talked about restarting Chantix for smoking cessation, and I explained the potential side effects, including suicidal ideation and vivid dreams. I will provide her with a starter pack and monitor her response to the medication. Additionally, we will recheck her thyroid function in two months to assess any changes. Patient Instructions - Reduce soda intake and monitor carbohy drate consumption, focusing on avoiding foods high in simple sugars. - Start Chantix as prescribed and be rhys re of potential side effects such as vivid dreams and mood changes. - Follow up in two months for thyroid fu nction reassessment. [facility] Medical History Heart murmur Hyperlipidemia Hematuria Elevated cholesterol Sacroiliitis Right hip pain Lower extremity edema Lumbar radiculopathy Anxiety disorder Restless leg syndrome Nerve root compression Chronic foot pain Sleep apnea Depression Surgical History History of excision of pilonidal cyst Hx of foot surgery Hx of appendectomy Hx of cholecystectomy History of colonoscopy History of microdiscectomy H/O synovectomy Family History Father No problems noted. Mother CVD (cardiovascular disease) S/P triple vessel bypass Myocardial infarct Social History Housing: House Alcohol intake: never Patient Tobacco Use Status: Former Tobacco user Tobacco use type: Cigarette e-Cigarette/Vaping Use: Never Used Second Hand Smoke Exposure: No Current occupational status: unemployed Current occupation: right handed Cognitive needs: No Hearing needs: No Vision needs: No Questionnaire Thrive Questionnaire Date Thrive assessed: 11/20/24 I am a: Patient What is your living situation today?: I choose not to answer this question Within the past 12 months, did the food you bought not last and you didn't have the money to get more?: I choose not to answer this question Within the past 12 months, did you worry whether your food would run out before you got money to buy more?: I choose not to answer this question Do you have trouble paying for medicines?: I choose not to answer this question Do you have trouble getting transportation to medical appointments?: I choose not to answer this question Do you have trouble paying your heating and electricity bill?: I choose not to answer this question Do you have trouble taking care of your child, family member or friend?: I choose not to answer this question Do you have trouble with day-to-day activities such as bathing, preparing meals, shopping, managing finances, etc.?: I choose not to answer this question Are you currently unemployed and looking for a job?: I choose not to answer this question Are you interested in more education?: I choose not to answer this question Please select the resources that you would like help with: None Currently or been in a relationship where the following occur: I choose not to answer THRIVE Score: 0 AUDIT C Alcohol Use Questionnaire (AUDIT-C) 1. How often do you have a drink containing alcohol?: Monthly or less 2. How many drinks containing alcohol do you have on a typical day when you are drinking?: 1 or 2 3. How often do you have six or more drinks on one occasion?: Never Total Score: 1 Score Reviewed/Action Taken: Yes GERSON-7 AMB Questionnaire GERSON-7 Date GERSON - 7 assessed: 11/20/24 Source: Developed by Drs. Jackson Dorsey, Cha Crum, Odin Brewster and colleagues, with an educational chris from [employer] Physical exam (Primary Care) Vital Signs: Last Vital Signs Pulse 68 11/20/24 13:13 BP 130/74 11/20/24 13:13 Pulse Ox 97 11/20/24 13:13 Oxygen Delivery Method Room Air 11/20/24 13:13 BMI result Body Mass Index 32.6 Tobacco/Smoking Status: Tobacco use Status Tobacco use date assessed 11/20/24 11/20/24 13:22 Patient Tobacco Use Status Former Tobacco user 11/20/24 13:14 Tobacco use type Cigarette 11/20/24 13:14 e-Cigarette/Vaping Use Never Used 11/20/24 13:14 Thrive Assessment: Date of Thrive Assessment Date Thrive assessed 11/20/24 11/20/24 13:14 Currently or been in a relationship where the following occur: I choose not to answer Coding Level of Care Code Est Pt Level 3 (12772) Diagnoses Elevated TSH R79.89 Elevated fasting blood sugar R73.01 Assessment & Plan Assessment & Plan (1) Elevated TSH: Code(s): R79.89 - Other specified abnormal findings of blood chemistry Category: Medical (2) Elevated fasting blood sugar: Code(s): R73.01 - Impaired fasting glucose Category: Medical Plan . Orders: Orders TSH reflex Free T4 Today R7 - Other specified abnormal findings of blood chemistry Thyroid Peroxidase Antibodies Today R7. - Other specified abnormal findings of blood chemistry Comprehensive [place]. Panel Fast Today R73. - Impaired fasting glucose Medications: New varenicline tartrate (Chantix) administer on days 4, 5, 6, and 7 of therapy 0.5 mg PO BID 60 tabs 0RF 30 days
--- OUTSIDE RECORDS SUMMARY | 2024-11-20 13:56 | XMS_ITS | Patient Health Record ---
Author Organization [facility] Address [address] [place] [address] Care Team Providers Care Parts Salesman Name Role Phone Hugo SWANSON, Asma Primary Care Provider Unavailabl e Black, Maureen Unavailable [phone] Allergies Allergen (clinical drug ingredient) Drug/Non Drug [...] Insured Coverage Start Date Coverage End Date [facility] [address] [place] [id number] Belen santiagoYanicy Self - patient is the insured Medical (General) History Medical History History ICD Code High blood pressure Chicken pox Joint implants/screws Surgical History Surgery Date(Month/Year) cholecystectomy appendectomy hammer toe 08/06/12 bunionectomy 08/06/12 screw removal 05/22/13
== END 2024-11-20 14:15 | disposition home or self-care (01) ==
LOC: HO.HMCC 13:07
PROVIDERS: PCP Nurse Practitioner Family; Visit Provider Nurse Practitioner Family
DX: R79.89 Other specified abnormal findings of blood chemistry (principal); R73.01 Impaired fasting glucose

== ENCOUNTER → 2024-11-20 13:06 | Outpatient (BNVA) | payer MEDICARE, MEDICAID, SELFPAY | PROVIDERS: PCP Nurse Practitioner Family; Visit Provider Nurse Practitioner Family | DX: R79.89 Other specified abnormal findings of blood chemistry (principal); R73.01 Impaired fasting glucose | CPT/HCPCS: 99212 ==

== ENCOUNTER 2025-01-09 13:52 | Outpatient (AMB) | payer MEDICARE, MEDICAID, SELFPAY ==
--- OUTSIDE RECORDS SUMMARY | 2023-08-22 07:10 | XMS_ITS ---
Author Organization [facility] Address [address] [place] [phone] Care Team Providers Care Twister Tender Name Role Phone DMITRIY ELIZONDO Primary Care Provider Jean Clarke Jr [phone] REASON FOR VISIT screening Encounters Encounter Location Date Provider Diagnosis [facility] [place] [address] [place] [id number] 08/22/2023 Jean Mcneill Jr Encounter for screening colonoscopy Z12.11 and Colon polyps K63.5 Assessments Encounter Date Diagnosis (ICD Code) Assessment Notes Treatment Notes Treatment Clinical Notes Section Notes 08/22/2023 Encounter for screening colonoscopy (ICD-10 - Z12.11) 08/22/2023 Colon polyps (ICD-10 - K63.5) Plan Of Treatment No Information Progress Notes * KIMBERLY BLAKE ADOB:05/1960 (64 yo F)Acc No.[id number]:08/22/2023 COLON WITH MAC Patient: KIMBERLY COLEMAN Agusto Provider: Idania Mcneill MD :1960 A ge:63 Y S ex:Female Date:08/22/2023 Address:[address] [place] [address] Pcp:DMITRIY ELIZONDO Subjective: * Chief Complaints: * 1 . Screening. * Medical History: Objective: * Vitals: Assessment: * Assessment: 1. E ncounter for screening colonoscopy - Z12.11 (Primary) 2 . C olon polyps - K63.5 Plan: * Treatment: * Procedure Codes: G 0105 COLOREC CANCR SCR; COLNSCPY HI RISK, 33632 LESION REMOVAL COLONOSCOPY, 07693 COLONOSCOPY AND BIOPSY, Modifiers: 59 , 0529F INTRVL 3+YRS PTS CLNSCP DOCD * * The named appointment provid er may or may not be the originator of this progress note, and it is not deemed complete until electronically signed by the appointment provider. Sign off status: Pending * Provider: Idania Mcneill MD Date: 0 08/22/2023 Generated for Rehana ramirez/Jose/Kellitting on: 0 01/09/2025 02:42 PM EDT
--- NOTE | 2025-01-09 13:54 | A.OFFVIS_ITS ---
Intake Visit Reasons: 6m follow up Intake Note: Patient is present for: 6mo follow up Urology Meds: none Blood Thinners: none today's pvr: 44mls Landing Support Specialist Required: No Accompanied by: Spouse Allergies gabapentin (GABAPENTIN) Allergy (Unknown, Verified 01/09/25 13:54) VOMITING levofloxacin (From LEVAQUIN) Allergy (Unknown, Verified 01/09/25 13:54) VOMITING/FEVER pregabalin Adverse Reaction (Unknown, Verified 01/09/25 13:54) loss of memory Mirtazapine Adverse Reaction (Unknown, Uncoded 01/09/25 13:54) feels horrible Medication List - Last Reconciled 01/09/25 by Titi Abdul MD alprazolam 1 mg PO BID PRN calcium carbonate 600 mg PO DAILY citalopram 30 mg PO QAM clonazepam 2 mg PO DAILY PRN hydrochlorothiazide 25 mg PO DAILY 90 days hydroxyzine pamoate (Vistaril) 25 mg PO BEDTIME pramipexole 0.75 mg PO BEDTIME 90 days rosuvastatin 10 mg PO DAILY 30 days zolpidem 10 mg PO BEDTIME PRN 30 days HPI Comments Details: 01/09/25--Erika is being followed for chronic interstitial cystitis she has been prescribed hydroxyzine she is here for six-month follow-up. The patient pr esents with her . She states that the hydroxyzine has helped with the irritative bladder symptoms. She is complaining today of worsening urinary incontinence which is associated with coughing laughing bending. She is wearing a pad daily. She also thinks she might be gaining weight since being on the hydroxyzine. I have told her she weighs stopped the hydroxyzine and see if it makes a change. I have discussed further evaluation with urodynamics. Also discussed Kegel exercises and referral to pelvic floor physical therapy. 07/12/24--64-year-old female presenting with chronic bladder pressure and dysuria. After an initial evaluation in December 2023 for microscopic hematuria, urinary tract imaging via CT scans showed normal results, though urine cytology was abnormal, leading to cystoscopy and bladder biopsies in January 2024, which returned benign tissue. A renal ultrasound in May 2024 showed no abnormalities in kidneys. Despite these normal diagnostic results, the patient continues experiencing symptoms suggestive of urinary tract infection, including dysuria and persistent bladder pressure. The patient was prescribed hydroxyzine, with initial good response; however, attempts to reduce the dose led to symptom recurrence. hematuria noted as pink tinges in urine. The patient denies any noteworthy changes since her last visit, save for alterations in symptom control linked to hydroxyzine dosing. I discussed with the patient the likely diagnosis of interstitial cystitis and the management approaches, including the use of hydroxyzine for symptom control. I emphasized the importance of dietary adjustments to avoid foods known to exacerbate bladder symptoms. A six-month follow-up is planned to evaluate treatment efficacy and symptom trajectory. Results - Labs: Urine cytology abnormal as per previous records. - Tests and Diagnostics: - CT Abdomen and Pelvis (Dec 2023): Normal urinary tract. - Bladder pathology from biopsies (Jan 2024): Benign tissue. - Renal Ultrasound (May 22, 2024): No suspicious lesions or calculi. 02/23/2024--Erika was initially evaluated on 12/15/2023 for microscopic hematuria. Urine cytology came back as atypical cytology. She is status post bladder biopsies, 01/30/2024-pathology benign. The patient complains of nocturia and bladder pressure. We will trial hydroxyzine. 01/26/24--Erika is here for office cystoscopy. She states that her brother is being treated for bladder cancer and that cancer runs in her family, including bone cancer and skin cancer. I have reviewed CT urogram, urinary tract was within normal limits. Urine cytology x2 noted atypical cells. Cystoscopy findings: No intrinsic lesions visualized. Prominent vasculature; Very mild erythematous changes- nonspecific. I have discussed further evaluation with cystoscopy bladder biopsies, bilateral retrogrades and will repeat urine cytology. 12/15/23--Erika is a very pleasant 63-year-old female patient of Dr. Suggs who was accompanied by her daughter at today's office visit. She has a past medical history of heart murmur, hyperlipidemia, hypercholesteremia, anxiety, lumbar radiculopathy, restless leg syndrome, nerve root compression, sleep apnea, and depression. She presents to the office today as a new patient for microscopic hematuria. In discussion with the patient today she discusses having had a previous microscopic hematuria workup in the past and was told microscopic hematuria was related to possible vaginal changes and cystoscopy noted no abnormalities. She reports having followed up with her PCP and microscopic hematuria was noted at which time a CT urogram was ordered and recommendations were made for urology referral for further assessment evaluation. These results were reviewed with the patient today. No nephrolithiasis. Nephrograms are symmetrical. No suspicious renal mass. Tiny cortical hypodensities most likely cyst that require no imaging follow-up per radiology report. Urinary excretion of contrast is symmetric. No hydroureteronephrosis. No filling defects in the collecting systems or ureters. No discrete bladder mass. The bladder wall appears mildly trabeculated. When asked she does report a previous history of chemical exposure in the [place] as well as smoking medical marijuana daily. She otherwise denies any bothersome urinary issues. She denies urinary urgency, urinary frequency, incontinence, nocturia, dysuria, foul smelling urine, changes to urinary stream, flank pain, fever, and or chills. She is happy with her current voiding parameters. I discussed reasons for blood in the urine may include but are not limited to kidney stones, cancer in the urinary tract, kidney stone disease or inflammatory conditions of the urinary tract. I have discussed workup to include cystoscopy evaluation. Urine cytology reviewed 11/05 Rare atypical urothelial cells present. She otherwise offers no other issues or concerns at this time. [facility] Medical History Heart murmur Hyperlipidemia Hematuria Elevated cholesterol Sacroiliitis Right hip pain Lower extremity edema Lumbar radiculopathy Anxiety disorder Restless leg syndrome Nerve root compression Chronic foot pain Sleep apnea Depression Surgical History History of excision of pilonidal cyst Hx of foot surgery Hx of appendectomy Hx of cholecystectomy History of colonoscopy History of microdiscectomy H/O synovectomy Family History Father No problems noted. Mother CVD (cardiovascular disease) S/P triple vessel bypass Myocardial infarct Social History Housing: House Alcohol intake: never Patient Tobacco Use Status: Former Tobacco user Tobacco use type: Cigarette e-Cigarette/Vaping Use: Never Used Second Hand Smoke Exposure: No Current occupational status: unemployed Current occupation: right handed Cognitive needs: No Hearing needs: No Vision needs: No Review of Systems Const All systems reviewed & are unremarkable except as noted in HPI and below Reports no additional complaints Eyes Reports no additional complaints ENT Reports no additional complaints Card Reports no additional complaints Resp Reports no additional complaints GI Reports no additional complaints Reports as per HPI Musc Reports no additional complaints Skin/Breast Reports system reviewed and no additional complaints, except as documented Neuro Reports no additional complaints Psych Reports no additional complaints Endo Reports no additional complaints Anup/Lymph Reports no additional complaints Aller/Immun Reports no additional complaints Office Procedures Post Void Residual Post Residual Void Post Void Residual (PVR): 41 [id number] Void Residual by ultrasound Results AMB Urinalysis, Automated UA Leukoctes 0 Yazan/uL Last Edit by FRANSISCO Parks on 01/09/25 14:07 UA Nitrite Negative Last Edit by FRANSISCO Parks on 01/09/25 14:07 UA Urobilinogen 17 mg/dL Last Edit by FRANSISCO Parks on 01/09/25 14:07 UA Protein 15 mg/dL Last Edit by FRANSISCO Parks on 01/09/25 14:07 UA pH 6.0 Last Edit by FRANSISCO Parks on 01/09/25 14:07 UA Blood 25 Luis Miguel/uL Last Edit by FRANSISCO Parks on 01/09/25 14:07 UA Specific [place] 1.015 Last Edit by FRANSISCO Parks on 01/09/25 14: 07 UA Ketone Negative Last Edit by FRANSISCO Parks on 01/09/25 14:07 UA Bilirubin 0 mg/dL Last Edit by FRANSISCO Parks on 01/09/25 14:07 UA Glucose 0 mg/dL Last Edit by FRANSISCO Parks on 01/09/25 14:07 Results Reviewed Results Reviewed: Laboratory Last Values Urine pH (Auto) 6.0 01/09/25 14:07 Specific [place] (Auto) 1.015 01/09/25 14:07 Urine Protein (Auto) 15 mg/dL 01/09/25 14:07 Glucose (UA)(Auto) 0 mg/dL 01/09/25 14:07 Urine Ketones (Auto) Negative 01/09/25 14:07 Urine Blood (Auto) 25 Luis Miguel/uL 01/09/25 14:07 Urine Nitrite (Auto) Negative 01/09/25 14:07 Urine Bilirubin (Auto) 0 mg/dL 01/09/25 14:07 Urine Urobilinogen (Auto) 17 mg/dL 01/09/25 14:07 Leukocyte Esterase (Auto) 0 Yazan/uL 01/09/25 14:07 Assessment & Plan Assessment & Plan (1) Microscopic hematuria: Code(s): R31.29 - Other microscopic hematuria Category: Medical (2) Sensation of pressure in bladder area: Code(s): R39.89 - Other symptoms and signs involving the genitourinary system Category: Medical (3) MARTIN (stress urinary incontinence, female): Code(s): N39.3 - Stress incontinence (female) (male) Category: Medical Plan I have discussed further evaluation with urodynamics. Also discussed Kegel exercises and referral to pelvic floor physical therapy. Orders: Orders PT Evaluation and Treatment Today N39.3 - Stress incontinence (female) (male) AMB Urinalysis Automated Today Z13.9 - Encounter for screening, unspecified AMB Post Void Residual by ultrasound Today R35.0 - Frequency of micturition Patient Instructions: The patient had an opportunity to ask questions regarding treatment plan. The patient expressed understanding and agreement with the above treatment plan. The patient is aware they should contact our office by phone for worsening of their current condition or the appearance of new symptoms. Compliance is encouraged with any medications and followup testing that is ordered. It is a privilege to be allowed the opportunity to participate in the urologic care of your patient. If you have any questions or concerns regarding treatment for the above conditions please do not hesitate to contact me. The office telephone contact is [phone]. This note is constructed in part using voice recognition software. While every effort has been made to ensure accuracy finisher wallboard and plasterboard errors may have been included. Yours sincerely, Titi Abdul MD Coding Level of Care Code Est Pt Level 4 (31905) Diagnoses Microscopic hematuria R31.29 Sensation of pressure in bladder area R39.89 MARTIN (stress urinary incontinence, female) N39.3 CPT Codes Post Residual Void - PVR CPT Code: 66058-Ttyz Void Residual by ultrasound ([id number])
--- OUTSIDE RECORDS SUMMARY | 2025-01-09 14:42 | XMS_ITS | Patient Health Record ---
Author Organization [facility] Address [address] [place] [address] Care Team Providers Care Mobile Patrol Officer Name Role Phone DMITRIY ELIZONDO Primary Care Provider UnavailJean Watts Jr Unavailable Allergies Allergen (clinical drug ingredient) Drug/Non Drug Allergy documented on EMR Reaction Allergy Type Onset Date Status pregabalin Lyrica Unknown Drug Allergy Active Levaquin Unknown Drug Allergy Active gabapentin Gabapentin Unknown Drug Allergy Activ e Reason For Referral [...] day 07/17/2023 Active Vitamin D3 1.25 MG (02473 UT) TAKE 1 CAPSULE BY MOUTH 1 [...] BY MOUTH DAILY Oral for 90 Active Problems Problem Type SNOMED Code ICD Code Onset Dates Problem Status W/U Status Risk Notes Problem 418661937 Colon cancer screening (Z12.11) Active confirmed Problem 50054921 Encounter for other preprocedural examination (Z01.818) Active confirmed Problem [id number] 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 (Z79.899) Active confirmed Plan Of Treatment Pending Test Test Name Order Date COLONOSCOPY WITH BIOPSY 02/02/2011 Future Test Test Name Order Date COLONOSCOPY 05/25/2016 COLONOSCOPY 07/13/2023 Insurance Providers Payer Name Payer Address Payer Phone Subscriber Number Group Number Insured Name Patient Relationship to Insured Coverage Start Date Coverage End Date MEDICARE OF [place] [address] JESSENIA GUTIERREZ [id number] KIMBERLY CASTANEDA Self - patient is the insured MEDICAID OF [facility] [address] [place] [address] [phone] [id number] KIMBERLY CASTANEDA Self - patient is the insured Medical (General) History Medical History History ICD Code Colonoscopy 10/29, [...]
--- OUTSIDE RECORDS SUMMARY | 2025-01-09 14:43 | XMS_ITS | Patient Health Record ---
Author Organization [facility] Address [address] [place] [address] Care Team Providers Care Mason Foreman/Superintendant Name Role Phone Hugo SWANSON, Asma Primary Care Provider Unavailabl e Black, Maureen Unavailable [phone] Allergies Allergen (clinical drug ingredient) Drug/Non Drug [...] Insured Coverage Start Date Coverage End Date [facility] [address] [place] [address] [phone] [id number] [address] santiagoYanicy Self - patient is the insured Medical (General) History Medical History History ICD Code High blood pressure Chicken pox Joint implants/screws Surgical History Surgery Date(Month/Year) cholecystectomy appendectomy hammer toe 08/06/12 bunionectomy 08/06/12 screw removal 05/22/13
== END 2025-01-09 14:48 | disposition home or self-care (01) ==
LOC: HO.HUSH 13:53
PROVIDERS: PCP Nurse Practitioner Family; Visit Provider Urology
DX: R31.29 Other microscopic hematuria (principal); R39.89 Other symptoms and signs involving the genitourinary system; N39.3 Stress incontinence (female) (male); Z13.9 Encounter for screening, unspecified
CPT/HCPCS: 99214

== ENCOUNTER → 2025-01-09 13:52 | Outpatient (BNVA) | payer MEDICARE, MEDICAID, SELFPAY | PROVIDERS: PCP Nurse Practitioner Family; Visit Provider Urology | DX: R31.29 Other microscopic hematuria (principal); R39.89 Other symptoms and signs involving the genitourinary system; N39.3 Stress incontinence (female) (male) | CPT/HCPCS: 51798; 81003; 99212 ==

== ENCOUNTER 2025-02-26 13:03 | Outpatient (REF) | payer MEDICARE, MEDICAID, SELFPAY ==
[2025-02-26 16:15] LABS: Appearance Urine Turbid; Glucose Urine UA Negative (Negative); PH 5.5 (5.0-9.0); Specific Gravity - Urine 1.020 (1.005-1.025); UMIC TRIGGER UACC YES
[2025-02-26 16:37] LABS: Alanine Aminotransferase 50 U/L (0-31); Albumin Level 4.4 g/dL (3.5-5.0); Alkaline Phosphatase 76 U/L (39-117); Anion Gap 11 (12-20); Aspartate Amino Transferase 54 U/L (5-31); Blood Urea Nitrogen 17 mg/dL (9-16); Calcium 9.0 mg/dL (8.4-10.2); Carbon Dioxide 29 mmol/L (22-29); Chloride 109 mmol/L (96-108); Estimated Glomerular Filt Rate > 60; Potassium 4.0 mmol/L (3.3-5.1); Sodium 145 mmol/L (135-145); Total Protein 7.0 g/dL (6.5-8.0)
--- OUTSIDE RECORDS SUMMARY | 2025-02-26 16:48 | XMS_ITS | Patient Health Record ---
Author [facility] Address [address] [facility] [place] [address] Care Team Providers Care Mat Gauger Name Role Phone Hugo SWANSON, Asma Primary Care Provider Unavailabl e Black, Maureen Unavailable [phone] Allergies Allergen (clinical drug ingredient) Drug/Non Drug [...] Insured Coverage Start Date Coverage End Date [facility] [address] [place] [address] [phone] [id number] Belen santiagoYanicy Self - patient is the insured Medical (General) History Medical History History ICD Code High blood pressure Chicken pox Joint implants/screws Surgical History Surgery Date(Month/Year) cholecystectomy appendectomy hammer toe 08/06/12 bunionectomy 08/06/12 screw removal 05/22/13
--- OUTSIDE RECORDS SUMMARY | 2025-02-26 16:48 | XMS_ITS | Patient Health Record ---
Author Organization [facility] Address [address] [place] [address] Care Team Providers Care Manager Cardiology Name Role Phone DMITRIY ELIZONDO Primary Care Provider Jean Clarke Jr Unavailable Allergies Allergen (clinical drug ingredient) [...] two tablets twice a day for one day; Duration: 1 day 07/17/2023 Active MiraLax (colon prep) 8.3 ounce ((238) grams mixed with Gatorade or Crystal Light orally begin at 5:00 p.m. the day before the procedure; Duration: 1 day 07/17/2023 Active Vitamin D3 1.25 MG (14848 UT) TAKE 1 CAPSULE BY MOUTH 1 TIME A WEEK Oral; Duration: 90 M810,Unavaila ble Active Alendronate Sodium 70 MG TAKE 1 TABLET B Y MOUTH EVERY 7 DAYS Oral; Duration: 84 M810,Unavaila ble Active Multi Vitamin/Minerals - Orally Active Calcium 600 + D 600-200 MG-UNIT Orally Active hydroCHLOROthiazide 25 MG 1 tablet Orall y Once a day Active clonazePAM 1 MG 2 tablet Orally QHS Active MiraLax (colon prep) 17 GM/SCOOP mixed with Gatorade or Crystal Light Orally begin at 5:00 p.m. the day before the procedure; Duration: 1 day 07/13/2023 Active Pramipexole Dihydrochloride 0.5 MG 1 tablet before bedtime Orally QHS Active Citalopram Hydrobromide 20 MG TAKE 1 AND 1/2 TABLETS BY MOUTH EVERY MORNING Oral; Duration: 90 Active Zolpidem Tartrate 10 MG TAKE 1 TABLET BY MOUTH AT BEDTIME NEEDED Oral; Duration: 30 Active ALPRAZolam 1 MG Oral; Duration: 30 Active Acetaminophen-Codeine 300-30 MG Oral; Duration: 10 Active Rosuvastatin Calcium 10 MG TAKE 1 TABLET BY MOUTH DAILY Oral; Duration: 90 Active Problems Problem Type SNOMED Code ICD Code Onset Dates Problem Status W/U Status Risk Notes Problem Colon cancer screening (916994003) Colon cancer screening (Z12.11) Active confirmed Problem Pre-procedure evaluation check (270234179) Encounter for other preprocedural examination (Z01.818) Active confirmed Problem Long-term current use of drug therapy (768022753) 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 (Z79.899) Active confirmed Plan Of Treatment Pending Test Test Name Order Date COLONOSCOPY WITH BIOPSY 02/02/2011 Future Test Test Name Order Date COLONOSCOPY 05/25/2016 COLONOSCOPY 07/13/2023 Insurance Providers Payer Name Payer Address Payer Phone Subscriber Number Group Number Insured Name Patient Relationship to Insured Coverage Start Date Coverage End Date MEDICARE OF [place] [address] [place] [id number] KIMBERLY CASTANEDA Self - patient is the insured MEDICAID OF [facility] [address] [place] [address] [phone] [id number] KIMBERLY CASTANEDA Self - patient is the [...]
== END 2025-02-26 13:04 | disposition home or self-care (01) ==
LOC: HO.HMGCLDS 13:03
PROVIDERS: PCP Nurse Practitioner Family; Visit Provider Nurse Practitioner Family
DX: R73.01 Impaired fasting glucose (principal); R79.89 Other specified abnormal findings of blood chemistry; I10 Essential (primary) hypertension
CPT/HCPCS: 36415; 80053; 81001; 81003; 84443; 86376

== ENCOUNTER 2025-03-18 14:27 | Outpatient (AMB) | payer MEDICARE, MEDICAID, SELFPAY ==
[2025-03-18 14:34] VITALS: BP 136/72; PULSE 63; TEMP 36.8; O2SAT 98
--- NOTE | 2025-03-18 14:34 | AM.OFFWIN_ITS ---
Intake Vital Signs 03/18/25 14:34 Height 5 ft 3 in BMI Reason not done Patient refused/unable BP 136/72 Blood Pressure Location Lt brachial Position Sitting Pulse 63 Pulse Source Pulse Oximeter Temp 98.2 F Temp Source Oral Pulse Oximetry (%) 98 Oxygen Delivery Method Room Air Intake Visit Reasons: EP Tick bite Intake Note: pt presents with irritated tick bite site right upper arm- noticed today. pt reports h/o positive lyme disease Patient Tobacco Use Status: Former Tobacco user Allergies gabapentin (GABAPENTIN) Allergy (Unknown, Verified 03/18/25 14:36) VOMITING levofloxacin (From LEVAQUIN) Allergy (Unknown, Verified 03/18/25 14:36) VOMITING/FEVER pregabalin Adverse Reaction (Unknown, Verified 03/18/25 14:36) loss of memory Mirtazapine Adverse Reaction (Unknown, Uncoded 01/09/25 13:54) feels horrible Medication List - Last Reconciled 03/18/25 by Mica Arias MD alprazolam 1 mg PO BID PRN ammonium lactate 12% appl topical BID PRN calcium carbonate 600 mg PO DAILY citalopram 30 mg PO QAM clonazepam 2 mg PO DAILY PRN hydrochlorothiazide 25 mg PO DAILY 90 days hydroxyzine pamoate (Vistaril) 25 mg PO BEDTIME ketoconazole 2% appl topical BID PRN pramipexole 0.75 mg PO BEDTIME 90 days rosuvastatin 10 mg PO DAILY 30 days zolpidem 10 mg PO BEDTIME PRN 30 days Do you need a note to return to daycare/school/sports/work: No HPI EP Tick bite HPI Details History of Present Illness The patient is a 64-year-old female presenting with a tick bite. Tick bite: - The patient discovered a tick on her r ight forearm this morning while showering. - She reports getting tick bites frequen tly, at least three times per year, and [place] - Past tick bites were typically treated with a single prophylactic dose of doxycycline prescribed by her primary care physician. - She notes that the current bite site i s more erythematous than previous bites. - The patient does not believe the tick was attached for a long time as the area does not appear significantly swollen. - She has a history of one prior Lyme di adonise test. Medical History: - History of recurrent tick bites, appro ximately three per year. - Prior prophylactic treatment with doxy cycline for tick bites. Social History: - The [place], leading to frequent exposure to ticks. - She reports taking precautions such as tucking her pants into her socks. - The patient denies owning a dog. Diagnostic Results: - Lyme disease test: The patient reports having been tested for Lyme disease once in the past; results were not discussed. Problem List - Tick bite Plan - Due to increased erythema at the tick bite site, a course of doxycycline will be prescribed. - The patient is advised to take the med ication for seven days, though a 10-day supply will be sent to the pharmacy. - The patient may keep any remaining med ication for future use. - The prescription for doxycycline will be sent to [facility]. Review of Systems - General: No fever no chills - Neurological: No headaches no dizziness Physical Exam General: No acute distress HEENT: No acute findings Neck: Supple Respiratory system: Able to talk in full sentences, no audible wheeze Gastrointestinal: No pain Extremities: Tick bite on right forearm with raised erythematous area surrounding AUDIO/VIDEO ENGINEER: Alert awake oriented x3 motor intact Skin: Normal turgor PFSH Medical History Interstitial cystitis Heart murmur Hyperlipidemia Hematuria Elevated cholesterol Sacroiliitis Right hip pain Lower extremity edema Lumbar radiculopathy Anxiety disorder Restless leg syndrome Nerve root compression Chronic foot pain Sleep apnea Depression Surgical History History of excision of pilonidal cyst Hx of foot surgery Hx of appendectomy Hx of cholecystectomy History of colonoscopy History of microdiscectomy H/O synovectomy Family History Father No problems noted. Mother CVD (cardiovascular disease) S/P triple vessel bypass Myocardial infarct Social History Housing: House Alcohol intake: never Patient Tobacco Use Status: Former Tobacco user Tobacco use type: Cigarette e-Cigarette/Vaping Use: Never Used Second Hand Smoke Exposure: No Current occupational status: unemployed Current occupation: right handed Cognitive needs: No Hearing needs: No Vision needs: No Physical Exam Vital Signs: Last Vital Signs Temp 98.2 F 03/18/25 14:34 Pulse 63 03/18/25 14:34 BP 136/72 03/18/25 14:34 Pulse Ox 98 03/18/25 14:34 Oxygen Delivery Method Room Air 03/18/25 14:34 Assessment & Plan Assessment & Plan (1) Tick bite of left upper arm with infection: Code(s): S40.862A - Insect bite (nonvenomous) of left upper arm, initial encounter; L08.9 - Local infection of the skin and subcutaneous tissue, unspecified; W57.XXXA - Bitten or stung by nonvenomous insect and other nonvenomous arthropods, initial encounter Qualifiers: Encounter type: initial encounter Qualified Code(s): S40.862A - Insect bite (nonvenomous) of left upper arm, initial encounter; L08.9 - Local infection of the skin and subcutaneous tissue, unspecified; W57.XXXA - Bitten or stung by nonvenomous insect and other nonvenomous arthropods, initial encounter Plan Tick bite: - The patient discovered a tick on her right forearm this morning while showering. - She reports getting tick bites frequently, at least three times per year, and [place] - Past tick bites were typically treated with a single prophylactic dose of doxycycline prescribed by her primary care physician. - She notes that the current bite site is more erythematous than previous bites. - The patient does not believe the tick was attached for a long time as the area does not appear significantly swollen. - She has a history of one prior Lyme disease test. Medical History: - History of recurrent tick bites, approximately three per year. - Prior prophylactic treatment with doxycycline for tick bites. Social History: - The [place] to frequent exposure to ticks. - She reports taking precautions such as tucking her pants into her socks. - The patient denies owning a dog. Diagnostic Results: - Lyme disease test: The patient reports having been tested for Lyme disease once in the past; results were not discussed. Problem List - Tick bite Plan - Due to increased erythema at the tick bite site, a course of doxycycline will be prescribed. - The patient is advised to take the medication for seven days, though a 10-day supply will be sent to the pharmacy. - The patient may keep any remaining medication for future use. - [facility] Medications: New doxycycline hyclate 100 mg PO BID 20 caps 0RF 10 days Coding Level of Care Code Est Pt Level 3 (64263) Diagnoses Tick bite of left upper arm with infection, initial encounter S40.862A; L08.9; W57.XXXA Encounter type: initial encounter
--- OUTSIDE RECORDS SUMMARY | 2025-03-18 17:28 | XMS_ITS | Patient Health Record ---
Author Organization [facility] Address [address] [place] [address] Care Team Providers Care Acoustic Intelligence Specialist Name Role Phone DMITRIY ELIZONDO Primary Care Provider Jean Clarke Jr Unavailable [phone] Allergies Allergen (clinical drug ingredient) Drug/Non Drug [...] day 07/17/2023 Active Vitamin D3 1.25 MG (53815 UT) TAKE 1 CAPSULE BY MOUTH 1 [...] Status Risk Notes Problem Colon cancer screening (506622941) Colon cancer screening (Z12.11) Active confirmed Problem Pre-procedure evaluation check (842795426) Encounter for other preprocedural examination (Z01.818) Active confirmed Problem Long-term current use of drug therapy (469613484) [facility] 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 (Z79.899) Active confirmed Plan Of Treatment Pending Test Test Name Order Date COLONOSCOPY WITH BIOPSY 02/02/2011 Future Test Test Name Order Date COLONOSCOPY 05/25/2016 COLONOSCOPY 07/13/2023 Insurance Providers Payer Name Payer Address Payer Phone Subscriber Number Group Number Insured Name Patient Relationship to Insured Coverage Start Date Coverage End Date MEDICARE OF [place] [address] [place] [address] [phone] [id number] KIMBERLY CASTANEDA Self - patient is the insured MEDICAID OF [facility] [address] [place] [address] [id number] KIMBERLY CASTANEDA Self - patient is the [...]
--- OUTSIDE RECORDS SUMMARY | 2025-03-18 17:29 | XMS_ITS | Patient Health Record ---
Author Organization [facility] Address [address] [place] [address] Care Team Providers Care Biofuels Production Manager Name Role Phone Hugo SWANSON, Asma Primary Care Provider Unavailabl e Black, Maureen Unavailable [phone] Allergies Allergen (clinical drug ingredient) Drug/Non Drug [...] Insured Coverage Start Date Coverage End Date [facility] [address] [place] [address] [id number] Belen santiagoYanicy Self - patient is the insured Medical (General) History Medical History History ICD Code High blood pressure Chicken pox Joint implants/screws Surgical History Surgery Date(Month/Year) cholecystectomy appendectomy hammer toe 08/06/12 bunionectomy 08/06/12 screw removal 05/22/13
== END 2025-03-18 14:48 | disposition home or self-care (01) ==
PROVIDERS: PCP Nurse Practitioner Family; Visit Provider Internal Medicine
DX: S40.862A Insect bite (nonvenomous) of left upper arm, initial encounter (principal); L08.9 Local infection of the skin and subcutaneous tissue, unspecified; W57.XXXA Bitten or stung by nonvenomous insect and other nonvenomous arthropods, initial encounter

== ENCOUNTER → 2025-03-18 14:27 | Outpatient (BNVA) | payer MEDICARE, MEDICAID, SELFPAY | PROVIDERS: PCP Nurse Practitioner Family; Visit Provider Internal Medicine | DX: S40.862A Insect bite (nonvenomous) of left upper arm, initial encounter (principal); W57.XXXA Bitten or stung by nonvenomous insect and other nonvenomous arthropods, initial encounter | CPT/HCPCS: 99212 ==

== ENCOUNTER 2025-04-18 10:26 | Outpatient (REF) | payer MEDICARE, MEDICAID, SELFPAY ==
--- NOTE | ~2025-04-18 | US_ITS ---
CLINICAL HISTORY: R74.8 - Abnormal levels of other serum enzymes US abdomen complete Comparison: CT/CO/SR - CT ABDOMEN PELVIS UROGRAPHY WITHOUT THEN WITH IV CONTRAST - 11/30/23 12:03 EDT US/CO/SR - US ABDOMEN - 10/24/23 09:36 EDT Findings: The visualized pancreatic head and body are normal. Uncinate process and tail are not seen. The visualized aorta and inferior vena cava are normal caliber. The liver is normal in size, right lobe length is 16.0 cm. Diffusely echogenic liver parenchyma, no focal lesion is visualized. No intrahepatic bile duct dilatation. The proximal common duct measures 10 mm in diameter, within top-normal range for post cholecystectomy status, no substantial change, distal CBD is not seen. Status post cholecystectomy. The main portal vein is patent with antegrade flow. The right kidney is normal, 10.1 cm in length. The left kidney is normal, 9.9 cm in length. The spleen is normal, 8.0 cm in length. No free fluid in the abdomen. Impression: 1. Echogenic liver parenchyma, non-specific, can be accentuated by body habitus or technique, or related to parenchymal liver disease. 2. Status post cholecystectomy, stable prominent common duct. This document has been electronically signed by: Shanon Rabago MD on 04/18/2025 15:29:16
[2025-04-18 13:06] LABS: MANUAL DIFF FLAG NO
[2025-04-18 13:21] LABS: Hematocrit 46.4 % (37.0-47.0); Hemoglobin 15.1 g/dl (12.0-16.0); Imm Gran Abs Auto 0.01 X10*3/uL (0.00-0.03); Imm Gran Pct Auto 0.2 % (0.0-0.4); Lymphocytes Absolute Auto 2.6 X10*3/uL (1.2-4.9); Mean Corpuscular HGB Conc 32.5 g/dl (31.0-35.0); Mean Corpuscular Hemoglobin 30.5 pg (27.0-33.0); Mean Corpuscular Volume 93.7 fL (80.0-98.0); NRBC Abs Auto 0.000 X10*3/uL (0.0-0.012); NRBC Pct Auto 0.0 /100WBC (0.0-0.2); Platelet Count 162 X10*3/uL (160-400); Red Blood Count 4.95 X10*6/uL (4.20-5.50); White Blood Count 6.5 X10*3/uL (4.8-10.8)
[2025-04-18 13:37] LABS: Appearance Urine Cloudy; Glucose Urine UA Negative (Negative); PH 5.5 (5.0-9.0); Specific Gravity - Urine 1.025 (1.005-1.025); UMIC TRIGGER UACC YES
[2025-04-18 13:45] LABS: UACC Culture Trigger YES
[2025-04-18 14:33] LABS: Alanine Aminotransferase 24 U/L (0-31); Albumin Level 4.3 g/dL (3.5-5.0); Alkaline Phosphatase 69 U/L (39-117); Anion Gap 9 (12-20); Aspartate Amino Transferase 21 U/L (5-31); Blood Urea Nitrogen 22 mg/dL (9-16); Calcium 9.2 mg/dL (8.4-10.2); Carbon Dioxide 33 mmol/L (22-29); Chloride 106 mmol/L (96-108); Cholesterol 135 mg/dL (<200); Estimated Glomerular Filt Rate > 60; HDL Cholesterol 56 mg/dL (>40); Iron 97 mcg/dL (30-160); Percent Iron Saturation 31 % (15-50); Potassium 4.2 mmol/L (3.3-5.1); Sodium 144 mmol/L (135-145); Total Iron Binding Capacity 318 mcg/dL (228-428); Total Protein 6.9 g/dL (6.5-8.0); Triglycerides 102 mg/dL (<150); Unsaturated Iron Binding 221 ug/dL
[2025-04-18 14:54] LABS: Ferritin 159 ng/mL (10-250)
== END 2025-04-18 10:27 | disposition home or self-care (01) ==
LOC: HO.HMGCX 10:26
PROVIDERS: PCP Nurse Practitioner Family; Visit Provider Nurse Practitioner Family
DX: R74.8 Abnormal levels of other serum enzymes (principal); E56.9 Vitamin deficiency, unspecified; I10 Essential (primary) hypertension; Z78.0 Asymptomatic menopausal state; E78.5 Hyperlipidemia, unspecified; M81.0 Age-related osteoporosis without current pathological fracture
CPT/HCPCS: 36415; 76700; 80053; 80061; 81001; 82306; 82728; 83540; 84443; 85025; 87086

== ENCOUNTER → 2025-04-18 10:31 | Outpatient (BNV) | payer MEDICARE, MEDICAID, SELFPAY | PROVIDERS: PCP Nurse Practitioner Family; Visit Provider Radiology Diagnostic Radiology | DX: R74.8 Abnormal levels of other serum enzymes (principal) | CPT/HCPCS: 76700 ==

== ENCOUNTER 2025-04-25 10:30 | Outpatient (AMB) | payer MEDICARE, MEDICAID, SELFPAY ==
--- NOTE | 2025-04-25 11:17 | A.OFFVIS_ITS ---
Intake Visit Reasons: UroD Allergies gabapentin (GABAPENTIN) Allergy (Unknown, Verified 03/18/25 14:36) VOMITING levofloxacin (From LEVAQUIN) Allergy (Unknown, Verified 03/18/25 14:36) VOMITING/FEVER pregabalin Adverse Reaction (Unknown, Verified 03/18/25 14:36) loss of memory Mirtazapine Adverse Reaction (Unknown, Uncoded 01/09/25 13:54) feels horrible HPI Comments Details: 04/25/25-- History of Present Illness The patient is a 64-year-old female presenting for urodynamics due to complaints of urinary leakage and for evaluation of persistent microscopic hematuria. Her family history is significant for a brother with cancer. She has a past history of nicotine use. The patient has persistent microscopic hematuria and is very concerned about this finding. Previous workup included a CT of the abdomen and pelvis in December 2023 which showed a normal urinary tract, and a cystoscopy with bladder biopsies in January 2024 which returned as benign bladder tissue. Urine cytology from November 19, 2024, noted atypical urothelial cells. An abdominal ultrasound on 04/18/25 and a renal ultrasound on May 22, 2024 both showed normal kidneys with no masses, hydronephrosis, or calculi. Her urinalysis has shown persistent microscopic hematuria, recorded as 3+ today. Regarding urinary incontinence, she complains of leakage associated with laughing, coughing, sneezing, and heavy lifting. She reports her leakage symptoms improved and became less frequent after she stopped taking hydroxyzine. Currently, the leakage is not bothersome and she manages with a panty liner. UDS results- during the filling phase detrusor overactivity was not observed. There was objective leakage with stress. EMG activity was within normal limits. Results - Labs - Urinalysis (Today): 3+ blood reported. - Urine cytology (November 19, 2024): Atypical urothelial cells noted. - Imaging - Abdominal ultrasound (April 18, 2025): Kidneys were normal. - Renal ultrasound (May 22, 2024): Kidneys were unremarkable with no masses, hydronephrosis, or renal calculi. - CT of abdomen and pelvis (December 2023): Normal urinary tract. - Tests and Diagnostics - Urodynamics (Today): Objective leakage was observed with coughing; no uninhibited detrusor contractions were noted during filling phase to over 300 mL. - Cystoscopy with bladder biopsies (January 2024): Showed benign bladder tissue. 01/09/25--Erika is being followed for chronic interstitial cystitis she has been prescribed hydroxyzine she is here for six-month follow-up. The patient presents with her . She states that the hydroxyzine has helped with the irritative bladder symptoms. She is complaining today of worsening urinary incontinence which is associated with coughing laughing bending. She is wearing a pad daily. She also thinks she might be gaining weight since being on the hydroxyzine. I have told her she weighs stopped the hydroxyzine and see if it makes a change. I have discussed further evaluation with urodynamics. Also discussed Kegel exercises and referral to pelvic floor physical therapy. 07/12/24--64-year-old female presenting with chronic bladder pressure and dysuria. After an initial evaluation in December 2023 for microscopic hematuria, urinary tract imaging via CT scans showed normal results, though urine cytology was abnormal, leading to cystoscopy and bladder biopsies in January 2024, which returned benign tissue. A renal ultrasound in May 2024 showed no abnormalities in kidneys. Despite these normal diagnostic results, the patient continues experiencing symptoms suggestive of urinary tract infection, including dysuria and persistent bladder pressure. The patient was prescribed hydroxyzine, with initial good response; however, attempts to reduce the dose led to symptom recurrence. hematuria noted as pink tinges in urine. The patient denies any noteworthy changes since her last visit, save for alterations in symptom control linked to hydroxyzine dosing. I discussed with the patient the likely diagnosis of interstitial cystitis and the management approaches, including the use of hydroxyzine for symptom control. I emphasized the importance of dietary adjustments to avoid foods known to exacerbate bladder symptoms. A six-month follow-up is planned to evaluate treatment efficacy and symptom trajectory. Results - Labs: Urine cytology abnormal as per previous records. - Tests and Diagnostics: - CT Abdomen and Pelvis (Dec 2023): Normal urinary tract. - Bladder pathology from biopsies (Jan 2024): Benign tissue. - Renal Ultrasound (May 22, 2024): No suspicious lesions or calculi. 02/23/2024--Erika was initially evaluated on 12/15/2023 for microscopic hematuria. Urine cytology came back as atypical cytology. She is status post bladder biopsies, 01/30/2024-pathology benign. The patient complains of nocturia and bladder pressure. We will trial hydroxyzine. 01/26/24--Erika is here for office cystoscopy. She states that her brother is being treated for bladder cancer and that cancer runs in her family, including bone cancer and skin cancer. I have reviewed CT urogram, urinary tract was within normal limits. Urine cytology x2 noted atypical cells. Cystoscopy findings: No intrinsic lesions visualized. Prominent vasculature; Very mild erythematous changes- nonspecific. I have discussed further evaluation with cystoscopy bladder biopsies, bilateral retrogrades and will repeat urine cytology. 12/15/23--Erika is a very pleasant 63-year-old female patient of Dr. Suggs who was accompanied by her daughter at today's office visit. She has a past medical history of heart murmur, hyperlipidemia, hypercholesteremia, anxiety, lumbar radiculopathy, restless leg syndrome, nerve root compression, sleep apnea, and depression. She presents to the office today as a new patient for microscopic hematuria. In discussion with the patient today she discusses having had a previous microscopic hematuria workup in the past and was told microscopic hematuria was related to possible vaginal changes and cystoscopy noted no abnormalities. She reports having followed up with her PCP and microscopic hematuria was noted at which time a CT urogram was ordered and recommendations were made for urology referral for further assessment evaluation. These results were reviewed with the patient today. No nephrolithiasis. Nephrograms are symmetrical. No suspicious renal mass. Tiny cortical hypodensities most likely cyst that require no imaging follow-up per radiology report. Urinary excretion of contrast is symmetric. No hydroureteronephrosis. No filling defects in the collecting systems or ureters. No discrete bladder mass. The bladder wall appears mildly trabeculated. When asked she does report a previous history of chemical exposure in the [place] as well as smoking medical marijuana daily. She otherwise denies any bothersome urinary issues. She denies urinary urgency, urinary frequency, incontinence, nocturia, dysuria, foul smelling urine, changes to urinary stream, flank pain, fever, and or chills. She is happy with her current voiding parameters. I discussed reasons for blood in the urine may include but are not limited to kidney stones, cancer in the urinary tract, kidney stone disease or inflammatory conditions of the urinary tract. I have discussed workup to include cystoscopy evaluation. Urine cytology reviewed 11/05 Rare atypical urothelial cells present. She otherwise offers no other issues or concerns at this time. [facility] Medical History Interstitial cystitis Heart murmur Hyperlipidemia Hematuria Elevated cholesterol Sacroiliitis Right hip pain Lower extremity edema Lumbar radiculopathy Anxiety disorder Restless leg syndrome Nerve root compression Chronic foot pain Sleep apnea Depression Surgical History History of excision of pilonidal cyst Hx of foot surgery Hx of appendectomy Hx of cholecystectomy History of colonoscopy History of microdiscectomy H/O synovectomy Family History Father No problems noted. Mother CVD (cardiovascular disease) S/P triple vessel bypass Myocardial infarct Social History Housing: House Alcohol intake: never Patient Tobacco Use Status: Former Tobacco user Tobacco use type: Cigarette e-Cigarette/Vaping Use: Never Used Second Hand Smoke Exposure: No Current occupational status: unemployed Current occupation: right handed Cognitive needs: No Hearing needs: No Vision needs: No Review of Systems Const All systems reviewed & are unremarkable except as noted in HPI and below Reports no additional complaints Eyes Reports no additional complaints ENT Reports no additional complaints Card Reports no additional complaints Resp Reports no additional complaints GI Reports no additional complaints Reports as per HPI Musc Reports no additional complaints Skin/Breast Reports system reviewed and no additional complaints, except as documented Neuro Reports no additional complaints Psych Reports no additional complaints Endo Reports no additional complaints Anup/Lymph Reports no additional complaints Aller/Immun Reports no additional complaints Office Procedures Urodynamic Studies Consent Discussed risk and benefit or proposed procedure with the patient. Information consent for procedure given to the patient. Discussed technical aspects, risks, benefits and alternatives in full. Addressed all of the patient's questions and concerns regarding the procedure. The patient demonstrated knowledge and understanding. They wish to proceed with this procedure. Preparation The patient was prepped in the usual manner. A program writer was present and in the room. Genitalia was prepped with betadine solution in a sterile manner. Procedure Complex Uroflow Complex uroflow performed by: Meg Zhang RN Maximum urinary flow rate (mL/second):5.7 Voiding time (seconds): 120 seconds Voided volume (mL): 20 Residual urine (mL): 0 Cystometrogram ? Vaginal/rectal catheter type: Vaginal First sensation at (mL): 122mL First desire at (mL): 231 mL Strong desire to void occurred at (mL): 296mL Strong desire detrusor pressure (cm H2O): 0.6 Maximum Capacity (mL): 356 mL Voiding Summary Voided with max detrusor pressure of (cm H2O): 68 Maximum flow rate (mL/second): 18 mL/s Voided volume (mL): ? 353 Calculated PVR: 0 mL Stress Testing Stress Test at 203mL: Absent leak with Valsalva, Present leak with cough DO Dry: Not applicable DO Wet: Not applicable Prep: The patient was prepped in the usual manner. A program writer was present and in the room. Genitalia was prepped with betadine solution in a sterile manner. 17974-Mlkqtbayqafsgu w/ ELECTRICAL MAINTENANCE MECHANIC 95701-Ogblucz-Gkutxjtkaiqg 28519-Vltv/Urinary Muscle Study 74885-Qwmau-Lwbkktths Pressure Test Procedure code (CPT) selection complete Office Meds nitrofurantoin monohydrate/macrocrystals 100 mg capsule Performing Provider: Titi Abdul MD [facility] Administered by: Meg Zhang RN on 04/25/25 11:19 Dose Route Admin Location Dispensed Lot Number Expiration Date NDC Crisis Intervention Specialist 100 mg PO 1 cap Results AMB Urinalysis, Automated UA Leukoctes 0 Yazan/uL Last Edit by Meg Zhang RN on 04/25/25 11:26 UA Nitrite Negative Last Edit by Meg Zhang RN on 04/25/25 11:26 UA Urobilinogen 0.2 mg/dL Last Edit by Meg Zhang RN on 04/25/25 11: 26 UA Protein 30 mg/dL Last Edit by Meg Zhang RN on 04/25/25 11:26 UA pH 6.0 Last Edit by Meg Zhang RN on 04/25/25 11:26 UA Blood 200 Luis Miguel/uL Last Edit by Meg Zhang RN on 04/25/25 11:26 UA Specific [place] 1.0 Last Edit by Meg Zhang RN on 04/25/25 11:2 6 UA Ketone Negative Last Edit by Meg Zhang RN on 04/25/25 11:26 UA Bilirubin 1 mg/dL Last Edit by Meg Zhang RN on 04/25/25 11:26 UA Glucose 0 mg/dL Last Edit by Meg Zhang RN on 04/25/25 11:26 Results Reviewed Results Reviewed: Date of Service: 05/22/24 Procedure(s): US renal BI EXAMINATION: US KIDNEY BILATERAL HISTORY: R31.29 - Other microscopic hematuria TECHNIQUE: Real-time grayscale ultrasound imaging of the kidneys was performed and images were reviewed. COMPARISON: Correlation is made with a CT urogram dated 11/30/2023. FINDINGS: Right kidney: The right kidney measures 10.6 x 4.3 x 5.8 cm. Renal parenchymal echotexture and thickness are normal. There are no masses. There is no hydronephrosis or renal calculi. Left Kidney: The left kidney measures 10.1 x 5.3 x 4.5 cm. Renal parenchymal echotexture and thickness are normal. There are no masses. There is no hydronephrosis or renal calculi. IMPRESSION: Unremarkable renal ultrasound. Collected: 01/30/24 Location: [facility] Received: 01/31/24 Diagnosis A. Bladder, posterior wall, biopsy: Partially denuded benign urothelial mucosa; muscularis propria present. B. Bladder, right lateral wall, biopsy: Benign urothelium; no muscularis propria present. C. Bladder, left lateral wall, biopsy: Benign urothelium; muscularis propria present. D. Bladder, dome, biopsy: Benign urothelium; muscularis propria present. Comment: No evidence of malignancy. Clinical History Other abnormal findings on cytological and microscopic hematuria Microscopic Description Microscopic sections reviewed. Material Received A. Posterior bladder wall B. Right lateral bladder wall C. Left lateral bladder wall D. Dome Date of Service: 11/30/23 EXAMINATION: CT ABDOMEN AND PELVIS WITHOUT AND WITH CONTRAST FINDINGS: LUNG BASES: Scarring at the lung bases. LIVER, GALLBLADDER, AND BILIARY TREE: The liver is normal in size, shape, and attenuation. No focal hepatic mass. There is mild biliary ductal dilatation in the setting of cholecystectomy which is consistent with reservoir effect. PANCREAS: No discrete pancreatic mass or pancreatic ductal dilatation. SPLEEN: Unremarkable. ADRENAL GLANDS: Coarse calcifications in the left adrenal gland may relate to prior infection or hemorrhage. This is unchanged compared to prior CT: Mammography. KIDNEYS AND URETERS: No nephrolithiasis. Nephrograms are symmetric. No suspicious renal mass. Tiny cortical hypodensities lower pole right kidney and mid pole right kidney are too small to characterize, but most likely cysts. No imaging follow-up is recommended. Urinary excretion of contrast is symmetric. No hydroureteronephrosis. No filling defects in the collecting systems or ureters. BLADDER: No discrete bladder mass. The bladder wall appears mildly trabeculated. GASTROINTESTINAL TRACT: Small hiatal hernia. Small and large bowel are normal in caliber. ABDOMINAL WALL: No significant hernia is appreciated. LYMPH NODES: No pathologically enlarged lymph nodes VASCULAR: No aortic aneurysm. Minimal atherosclerotic disease. PELVIC VISCERA: Unremarkable. OSSEUS STRUCTURES: Mild degenerative changes in the spine. IMPRESSION: No explanation for hematuria. Mildly trabeculated bladder wall without discrete bladder mass. Urine Cytology--Collected: 12/15/23 Location: .[facility] Received: 12/18/23 Diagnosis Urine: Rare atypical urothelial cells. COMMENT: Examination of a monolayer preparation slide shows many benign squamous cells, scattered benign urothelial cells with focal reactive changes, and rare urothelial cells with mild increased nuclear:cytoplasmic ratios meeting the criteria for atypia. There are also occasional read blood cells and inflammatory cells. Clinical History Microscopic hematuria Material Received Urine Gross Description Received is 52 cc of cloudy orange fluid from which a ThinPrep slide is prepared. Assessment & Plan Assessment & Plan (1) Microscopic hematuria: Code(s): R31.29 - Other microscopic hematuria Category: Medical (2) MARTIN (stress urinary incontinence, female): Code(s): N39.3 - Stress incontinence (female) (male) Category: Medical (3) History of nicotine dependence: Code(s): Z87.891 - Personal history of nicotine dependence Category: Medical (4) Abnormal urine cytology: Comment: status post bladder biopsies, 01/30/2024-pathology benign. Code(s): R82.89 - Other abnormal findings on cytological and histological examination of urine Category: Medical (5) Family history of bladder cancer: Code(s): Z80.52 - Family history of malignant neoplasm of bladder Category: Medical Plan Plan 1. Persistent Microscopic Hematuria - The patient's persistent microscopic hematuria is concerning, especially with a history of atypical urothelial cells on cytology and a past history of nicotine use, which is a risk factor for urinary tract cancers. - Although prior extensive workup including a CT scan and cystoscopy with biopsies about a year ago were normal, and recent renal ultrasounds were also unremarkable, the persistence and potential increase in hematuria warrant re- evaluation. - A repeat outpatient cystoscopy with bladder biopsies will be scheduled to investigate for any changes within the bladder. - Insurance authorization will be obtained prior to scheduling the procedure. - The patient was advised to drink plenty of water to keep the urinary system flushed. 2. Stress Urinary Incontinence - The patient reports urinary leakage with activities like coughing, sneezing, and heavy lifting, which was confirmed on urodynamic testing today. - Symptoms have subjectively improved since discontinuing hydroxyzine and are currently not bothersome to her quality of life. - Given that the symptoms are mild and not impacting her daily life, the plan is to monitor the condition without pursuing any procedural intervention at this time. Orders: Orders AMB Urodynamics Studies Today N39.3 - Stress incontinence (female) (male) AMB Urinalysis Automated Today Z13.9 - Encounter for screening, unspecified Patient Instructions: The patient had an opportunity to ask questions regarding treatment plan. The patient expressed understanding and agreement with the above treatment plan. The patient is aware they should contact our office by phone for worsening of their current condition or the appearance of new symptoms. Compliance is encouraged with any medications and followup testing that is ordered. It is a privilege to be allowed the opportunity to participate in the urologic care of your patient. If you have any questions or concerns regarding treatment for the above conditions please do not hesitate to contact me. The office telephone contact is [phone]. This note is constructed in part using voice recognition software. While every effort has been made to ensure accuracy client technologies specialist errors may have been included. Yours sincerely, Titi Abdul MD Scribe Plan - Not visible on output: Patient was informed and verbally consented to the use of an ambient scribe for clinic note documentation during this visit. Coding Level of Care Code Est Pt Level 4 (67450) Diagnoses Microscopic hematuria R31.29 MARTIN (stress urinary incontinence, female) N39.3 History of nicotine dependence Z87.891 Abnormal urine cytology R82.89 Family history of bladder cancer Z80.52 CPT Codes Urodynamic Studies - CPT: 38261-Udenfwpxlwtgqg w/ ELECTRICAL MAINTENANCE MECHANIC ([id number]) Urodynamic Studies - CPT: 20428-Soahshh-Zhvwfrhjvwvd ([id number]) Urodynamic Studies - CPT: 69878-Hdwl/Urinary Muscle Study ([id number]) Urodynamic Studies - CPT: 34555-Cykeu-Vtaiugsgm Pressure Test ([id number])
== END 2025-04-25 11:56 | disposition home or self-care (01) ==
LOC: HO.HUSH 10:30
PROVIDERS: PCP Nurse Practitioner Family; Visit Provider Urology
DX: R31.29 Other microscopic hematuria (principal); N39.3 Stress incontinence (female) (male); Z87.891 Personal history of nicotine dependence; R82.89 Other abnormal findings on cytological and histological examination of urine; Z80.52 Family history of malignant neoplasm of bladder; Z13.9 Encounter for screening, unspecified
CPT/HCPCS: 51728; 51741; 51784; 51797; 99214

== ENCOUNTER → 2025-04-25 10:30 | Outpatient (BNVA) | payer MEDICARE, MEDICAID, SELFPAY | PROVIDERS: PCP Nurse Practitioner Family; Visit Provider Urology | DX: N39.46 Mixed incontinence (principal); R31.29 Other microscopic hematuria; R82.89 Other abnormal findings on cytological and histological examination of urine; Z13.9 Encounter for screening, unspecified; Z87.891 Personal history of nicotine dependence; Z80.52 Family history of malignant neoplasm of bladder | CPT/HCPCS: 51728; 51741; 51784; 51797; 81003; 99212 ==

== ENCOUNTER 2025-05-13 08:47 | Day surgery (SDC) | payer MEDICARE, MEDICAID, SELFPAY ==
--- OUTSIDE RECORDS SUMMARY | 2025-05-02 10:22 | XMS_ITS | Patient Health Record ---
Author Organization [facility] Address [address] [place] [address] Care Team Providers Care Biztalk Software Developer Name Role Phone Hugo SWANSON, Asma Primary Care Provider Unavailabl e Black, Maureen Unavailable [phone] Allergies Allergen (clinical drug ingredient) Drug/Non Drug [...] Insured Coverage Start Date Coverage End Date [facility] [address] [place] [address] [phone] [id number] Belen santiagoYanicy Self - patient is the insured Medical (General) History Medical History History ICD Code High blood pressure Chicken pox Joint implants/screws Surgical History Surgery Date(Month/Year) cholecystectomy appendectomy hammer toe 08/06/12 bunionectomy 08/06/12 screw removal 05/22/13
--- OUTSIDE RECORDS SUMMARY | 2025-05-02 10:22 | XMS_ITS | Patient Health Record ---
Author Organization [facility] Address [address] [place] [address] Care Team Providers Care Behavioral Health Director Name Role Phone DMITRIY ELIZONDO Primary Care Provider UnavailJean Watts Jr Unavailable Allergies Allergen (clinical drug ingredient) Drug/Non Drug Allergy documented on EMR Reaction Allergy Type Onset Date Status gabapentin Gabapentin Unknown Drug Allergy Activ e Levaquin Unknown Drug Allergy Active pregabalin Lyrica Unknown Drug Allergy Active Reason For Referral No Information Medications Medication SIG (Take, Route, Frequency, Duration) Notes Start Date End Date Status Dulcolax (colon prep) 5 MG Tablet Delayed Release take at 3:00 p.m and 7:00p.m. Orally two tablets twice a day for one day; Duration: 1 day 07/17/2023 Active MiraLax (colon prep) 8.3 ounce ((238) grams mixed with Gatorade or Crystal Light orally begin at 5:00 p.m. the day before the procedure; Duration: 1 day 07/17/2023 Active Vitamin D3 1.25 MG (56867 UT) Capsule TAKE 1 CAPSULE BY MOUTH 1 TIME A WEEK Oral; Duration: 90 M810,Unavaila ble Active Alendronate Sodium 70 MG Tablet TAKE 1 TABLET BY MOUTH EVERY 7 DAYS Oral; Duration: 84 M810,Unavaila ble Active Multi Vitamin/Minerals - Tablet Orally Active Calcium 600 + D 600-200 MG-UNIT Tablet Orally Active hydroCHLOROthiazide 25 MG Tablet 1 tablet Orally Once a day Active clonazePAM 1 MG Tablet 2 tablet Orally QHS Active MiraLax (colon prep) 17 GM/SCOOP Powder mixed with Gatorade or Crystal Light Orally begin at 5:00 p.m. the day before the procedure; Duration: 1 day 07/13/2023 Active Pramipexole Dihydrochloride 0.5 MG Tablet 1 tablet before bedtime Orally QHS Active Citalopram Hydrobromide 20 MG Tablet TAKE 1 AND 1/2 TABLETS BY MOUTH EVERY MORNING Oral; Duration: 90 Active Zolpidem Tartrate 10 MG Tablet TAKE 1 TABLET BY MOUTH AT BEDTIME NEEDED Oral; Duration: 30 Active ALPRAZolam 1 MG Tablet Oral; Duration: 30 Active Acetaminophen-Codeine 300-30 MG Tablet Oral; Duration: 10 Activ e Rosuvastatin Calcium 10 MG Tablet TAKE 1 TABLET BY MOUTH DAILY Oral; Duration: 90 Active Social History Social History Additional Details Category Social Info Options Details Miscellaneous: Marital status: Occupation: unemployed Problems Problem Type SNOMED Code ICD Code Onset Dates Problem Status W/U Status Risk Notes Problem Colon cancer screening (385211441) Colon cancer screening (Z12.11) Active confirmed Problem Pre-procedure evaluation check (515419140) Encounter for other preprocedural examination (Z01.818) Active confirmed Problem Long-term current use of drug therapy (077974235) [facility] 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 (Z79.899) Active confirmed Plan Of Treatment Pending Test Test Name Order Date COLONOSCOPY WITH BIOPSY 02/02/2011 Future Test Test Name Order Date COLONOSCOPY 05/25/2016 COLONOSCOPY 07/13/2023 Insurance Providers Payer Name Payer Address Payer Phone Subscriber Number Group Number Insured Name Patient Relationship to Insured Coverage Start Date Coverage End Date MEDICARE OF [place] [address] [place] GUTIER[place]Z [id number] [phone] [id number] KIMBERLY CASTANEDA Self - patient is the insured MEDICAID OF [facility] [address] [place] [address] [id number] KIMBERLY CASTANEDA Self - patient is the [...]
--- NOTE | 2025-05-07 08:44 | HO.ANESPROP2 ---
Documented by User: Heavenly Sandoval NP 05/07/25 09:28 HPI - Anesthesia Eval Consult details Narrative: 64 yr old female for Cystoscopy & Bladder Biopsy s/p cystoscopy with GA, LMA 4 01/2024 [facility] Active Problems Active Problems: All Active Problems Family history of bladder cancer (Acute) History of nicotine dependence (Acute) Tick bite of left upper arm with infection (Acute) MARTIN (stress urinary incontinence, female) (Acute) Elevated TSH (Acute) Skin lesion (Acute) Vitamin deficiency (Acute) Sensation of pressure in bladder area (Acute) Urinary frequency (Acute) Abnormal urine cytology (Acute) Marijuana smoker (Acute) Proteinuria (Acute) Microscopic hematuria (Acute) Elevated liver enzymes (Acute) Fracture of greater tuberosity of left humerus (Acute) Left shoulder pain (Acute) Injury of shoulder, left (Acute) Osteoporosis (Acute) Physical exam (Acute) Screening for colon cancer (Acute) Postmenopausal (Acute) Elevated fasting blood sugar (Acute) Dyslipidemia (Acute) Tick bite (Acute) Arthralgia (Acute) Right foot pain (Acute) Systolic murmur (Acute) HTN (hypertension) (Acute) De Quervain's tenosynovitis, left (Acute) Other bursal cyst, left wrist (Acute) Restless leg syndrome (Acute) Past Medical History Medical History Interstitial cystitis Heart murmur Hyperlipidemia Hematuria Elevated cholesterol Sacroiliitis Right hip pain Lower extremity edema Lumbar radiculopathy Anxiety disorder Restless leg syndrome Nerve root compression Chronic foot pain Sleep apnea Depression Family History Family History Father No problems noted. Mother CVD (cardiovascular disease) S/P triple vessel bypass Myocardial infarct Family history of problems with anesthesia: No Surgical History Surgical History History of excision of pilonidal cyst Hx of foot surgery Hx of appendectomy Hx of cholecystectomy History of colonoscopy History of microdiscectomy H/O synovectomy History of Problems with Anesthesia: No Social History Social History Housing: House Alcohol intake: never Patient Tobacco Use Status: Former Tobacco user Tobacco use type: Cigarette e-Cigarette/Vaping Use: Never Used Second Hand Smoke Exposure: No Have you been hit, kicked, punched, or otherwise hurt by someone within the past year? If so, by whom?: No Advance Directives: No Advance Directives Information Provided: Yes Current occupational status: unemployed Current occupation: right handed Cognitive needs: No Hearing needs: No Vision needs: No Meds Allergies Allergy/AdvReac Type Severity Reaction Status Date / Time gabapentin (GABAPENTIN) Allergy Unknown VOMITING Verified 03/18/25 14:36 levofloxacin (From LEVAQUIN) Allergy Unknown VOMITING/FE Verified 03/18/25 14:36 MALI pregabalin AdvReac Unknown loss of Verified 03/18/25 14:36 memory Mirtazapine AdvReac Unknown feels Uncoded 01/09/25 13:54 horrible Home Medications ?Medication ?Instructions ?Recorded ?Confirmed ?Last Taken ?Type alprazolam 1 mg tablet 1 mg PO BID PRN anxiety 04/22/20 05/13/25 Unknown History citalopram 20 mg tablet 30 mg PO QAM 04/22/20 05/13/25 Unknown History clonazepam 2 mg tablet 2 mg PO DAILY PRN Anxiety 04/25/24 05/13/25 Unknown History calcium carbonate 600 mg PO DAILY 11/20/24 05/13/25 Unknown History Assessment and Plan Assessment Anesthesia Assessment: Chart Reviewed Final Anesthetic Review Family History of Problems with Anesthesia: No History of Problems with Anesthesia: No Documented by User: Mike Pat MD 05/13/25 09:30 [facility] Past Medical History Medical History Interstitial cystitis Heart murmur Hyperlipidemia Hematuria Elevated cholesterol Sacroiliitis Right hip pain Lower extremity edema Lumbar radiculopathy Anxiety disorder Restless leg syndrome Nerve root compression Chronic foot pain Sleep apnea Depression Cognitive capacity: normal Functional capacity: independent ambulation Family History Family History Father No problems noted. Mother CVD (cardiovascular disease) S/P triple vessel bypass Myocardial infarct Surgical History Surgical History History of excision of pilonidal cyst Hx of foot surgery Hx of appendectomy Hx of cholecystectomy History of colonoscopy History of microdiscectomy H/O synovectomy Social History Social History Housing: House Alcohol intake: never Patient Tobacco Use Status: Former Tobacco user Tobacco use type: Cigarette e-Cigarette/Vaping Use: Never Used Second Hand Smoke Exposure: No Have you been hit, kicked, punched, or otherwise hurt by someone within the past year? If so, by whom?: No Advance Directives: No Advance Directives Information Provided: Yes Current occupational status: unemployed Current occupation: right handed Cognitive needs: No Hearing needs: No Vision needs: No Meds Allergies Allergy/AdvReac Type Severity Reaction Status Date / Time gabapentin (GABAPENTIN) Allergy Unknown VOMITING Verified 03/18/25 14:36 levofloxacin (From LEVAQUIN) Allergy Unknown VOMITING/FE Verified 03/18/25 14:36 MALI pregabalin AdvReac Unknown loss of Verified 03/18/25 14:36 memory Mirtazapine AdvReac Unknown feels Uncoded 01/09/25 13:54 horrible Home Medications ?Medication ?Instructions ?Recorded ?Confirmed ?Last Taken ?Type alprazolam 1 mg tablet 1 mg PO BID PRN anxiety 04/22/20 05/13/25 Unknown History citalopram 20 mg tablet 30 mg PO QAM 04/22/20 05/13/25 Unknown History clonazepam 2 mg tablet 2 mg PO DAILY PRN Anxiety 04/25/24 05/13/25 Unknown History calcium carbonate 600 mg PO DAILY 11/20/24 05/13/25 Unknown History Exam Exam Date and Time: 05/13/2025 Airway TM Dist: >3cm Neck ROM: Full Heart: ok Lungs: ok Other: normal Assessment and Plan Final Anesthetic Review ASA Class: II Final Preanesthetic Review: No Changes in Pt Med Stat, Meds/Allgs Chart Reviewed, Consent Obtained/Reviewed and Anes Risks/Benef Reviewed Patient Risk: Low Anesthetic Plan Anesthetic Plan: GA Disposition: Standard PACU
[2025-05-12 14:49] VITALS: BMI 31.2
[2025-05-13] VITALS (11 sets, daily range): BP systolic 85–141; BP diastolic 29–115; PULSE 44–52; RESP 10–20; TEMP 36.1–37; O2SAT 94–98; BMI 33.6
[2025-05-13] MEDS: Lactated Ringers 1,000 ML 100 ML IVCONT (09:17)
--- NOTE | 2025-05-13 10:21 | MHC.SHP ---
Pre-Procedural Eval Section A - 24 Hr Update-Section A only Date of Service: 05/13/25 The patient is an INPATIENT: No The patient has been examined within 24 hours of the surgical procedure. The History & Physical has been completed within 30 days and I have reviewed it.: Yes Section B - Complete if H&P > 30 days Chief Complaint: Other microscopic hematuria Allergies: Allergies Allergy/AdvReac Type Severity Reaction Status Date / Time gabapentin (GABAPENTIN) Allergy Unknown VOMITING Verified 03/18/25 14:36 levofloxacin (From LEVAQUIN) Allergy Unknown VOMITING/FE Verified 03/18/25 14:36 MALI pregabalin AdvReac Unknown loss of Verified 03/18/25 14:36 memory Mirtazapine AdvReac Unknown feels Uncoded 01/09/25 13:54 horrible Plan Diagnosis/Plan: Unchanged I have reviewed the history and physical and performed a pertinent physical examination on my patient. No changes have occurred unless specified. Cystoscopy. Bladder biopsies. Time Spent With Patient Time: Total time managing care of this patient today ____ minutes.
--- NOTE | 2025-05-16 19:07 | P.OP_ITS ---
Operative Note Operative Note Date of Service: 05/13/25 Narrative: PREOP DIAGNOSIS: Microscopic hematuria, atypical urine cytology POSTOP DIAGNOSIS: Microscopic hematuria, atypical urine cytology PROCEDURE: Cystoscopy bladder biopsies x 4 SURGEON: Titi Abdul MD ANESTHESIA: General Details of procedure: The patient was brought into the operating room placed on the OR table in supine position. 2 g of Ancef IV. General anesthesia was admi nistered. The patient was repositioned into lithotomy position, prepped and draped in the usual sterile fashion. Time-out was done per protocol. A 22 fr cystoscope was placed transurethrally into the bladder. The right and left ureteral orifices were visualized. The entire bladder was visualized. There were no suspicious bladder lesions seen. Random bladder biopsies were done from the left lateral wall x2, the posterior wall, right lateral wall. The cystoscope was removed. 2% lidocaine urojet was passed transurethrally into the bladder. The patient was brought out of anesthesia and taken to recovery in stable condition. Complications: None EBL: minimal (<5 mL) Drains: none
== END 2025-05-13 13:05 | disposition home or self-care (01) ==
PROVIDERS: PCP Nurse Practitioner Family; Visit Provider Urology
PROC: (CPT 52204; principal; 2025-05-13 10:10)
DX: R31.29 Other microscopic hematuria (principal); N39.3 Stress incontinence (female) (male); N30.10 Interstitial cystitis (chronic) without hematuria; R82.89 Other abnormal findings on cytological and histological examination of urine; Z80.52 Family history of malignant neoplasm of bladder; E78.00 Pure hypercholesterolemia, unspecified; R01.1 Cardiac murmur, unspecified; R60.0 Localized edema; M54.16 Radiculopathy, lumbar region; G47.30 Sleep apnea, unspecified; F32.A Depression, unspecified; F41.9 Anxiety disorder, unspecified; Z88.1 Allergy status to other antibiotic agents; Z88.8 Allergy status to other drugs, medicaments and biological substances; Z90.49 Acquired absence of other specified parts of digestive tract; Z98.890 Other specified postprocedural states; Z87.891 Personal history of nicotine dependence
CPT/HCPCS: 52204; 87086; 88305; J0131; J0690; J1100; J1171; J2003; J2250; J2405; J2704; J2765; J3010

== ENCOUNTER → 2025-05-13 08:47 | Outpatient (BNV) | payer MEDICARE, MEDICAID, SELFPAY | PROVIDERS: PCP Nurse Practitioner Family; Visit Provider Urology | DX: R31.29 Other microscopic hematuria (principal) | CPT/HCPCS: 52204 ==